=== PATIENT | male | born 1955 | race Caucasian/White ===

== ENCOUNTER → 2017-09-06 | Outpatient (CLI) | payer BC ==
--- NOTE | 2017-09-06 17:02 | CT ---
EXAMINATION TYPE: CT angio chest DATE OF EXAM: 09/06/2017 4:56 PM COMPARISON: 03/27/2012 HISTORY: Shortness of breath, history of PE. CT DLP: 1306.00 mGycm Automated exposure control for dose reduction was used. CONTRAST: CTA scan of the thorax is performed with IV Contrast, patient injected with 100 mL of Omnipaque 350, pulmonary embolism protocol. There are 3-D post processed images.. FINDINGS: The lungs are clear of consolidation. There is no sign of a pulmonary mass. There is no pleural effus ion. There is no pericardial effusion. Thoracic aorta appears normal. There is no sign of aneurysm or dissection. There is normal contrast o pacification of the pulmonary arteries. I see no filling defects. There are a few small mediastinal lymph nodes measure up to 5 mm. There is spurring in the thoracic s pine. I see no bony destructive process. IMPRESSION: NO EVIDENCE OF PULMONARY EMBOLISM. SPONDYLOTIC CHANGES IN THE THORACIC SPINE. NO ADVERSE CHANGE THEODORE RED TO OLD EXAM.
== END ==
LOC: RADCTMAIN 16:31
PROVIDERS: ATTEND Family Medicine
DX: R06.02 Shortness of breath (principal)
CPT/HCPCS: 71275; Q9967

== ENCOUNTER 2018-08-23 10:54 | Day surgery (SDC) | payer MEDICARE, BC ==
[2018-08-21 09:09] VITALS: BMI 54.2
[~2018-08-23 10:54] MED LIST: LACTATED RINGERS 1,000 ML IV SCH; LIDOCAINE 1% 20 ML VIAL (10MG/ML) FOR IV START INTRADERMA PRN
[2018-08-23 11:14] VITALS: TEMP 98
[2018-08-23] MEDS ORDERED: PROPOFOL 10 MG/ML 20 ML VIAL IV ONE (12:02)
[2018-08-23] MEDS ORDERED: LIDOCAINE 1% INJ 10MG/ML (20 ML MDV) ONE (12:02)
--- NOTE | 2018-08-23 12:14 | P.GSHP ---
History of Present Illness H&P Date: 08/23/18 Chief Complaint: Colon cancer history Patient here today for colonoscopy. Last colonoscopy 7-8 years ago. Polyps were found at that time he states. No bowel complaints. Past Medical History Past Medical History: Asthma, GERD/Reflux, Hypertension, Pneumonia, Pulmonary Embolus (PE) Additional Past Medical History / Comment(s): diverticulosis, asthma as a child History of Any Multi-Drug Resistant Organisms: None Reported Past Surgical History: Appendectomy, Orthopedic Surgery Additional Past Surgical History / Comment(s): rt rotator cuff, rt knee repair of torn meniscus Past Anesthesia/Blood Transfusion Reactions: No Reported Reaction Smoking Status: Never smoker - Past Family History Father Family Medical History: Cancer Additional Family Medical History / Comment(s): bladder cancer with metastasis, diverticulosis Mother Family Medical History: Asthma Brother(s) Additional Family Medical History / Comment(s): scleroderma Medications and Allergies Home Medications Medication Instructions Recorded Confirmed Type Albuterol Nebulized [Ventolin 2.5 mg INHALATION Q4H PRN 08/21/18 08/21/18 History Nebulized] Albuterol Sulfate [Proair Hfa] 1 - 2 puff INHALATION Q6HR PRN 08/21/18 08/21/18 History Atenolol [Tenormin] 25 mg PO DAILY 08/21/18 08/23/18 History Hydrochlorothiazide 12.5 mg PO DAILY 08/21/18 08/23/18 History Warfarin [Coumadin] 5 mg PO DAILY 08/21/18 08/21/18 History Allergies Allergy/AdvReac Type Severity Reaction Status Date / Time cat dander Allergy Anaphylaxis Verified 08/23/18 11:13 Surgical - Exam Vital Signs Temp Pulse Resp BP Pulse Ox 98.0 F 57 L 16 157/84 94 L 08/23/18 11:13 08/23/18 11:13 08/23/18 11:13 08/23/18 11:13 08/23/18 11:13 Physical exam: General: Well-developed, well-nourished HEENT: Normocephalic, sclerae nonicteric Abdomen: Nontender, nondistended Extremities: No edema Neuro: Alert and oriented Assessment and Plan (1) Colon cancer screening Narrative/Plan: Will proceed with colonoscopy at this time. Current Visit: Yes Status: Acute Code(s): Z12.11 - ENCOUNTER FOR SCREENING FOR MALIGNANT NEOPLASM OF COLON SNOMED Code(s): 623818703
--- NOTE | 2018-08-23 12:27 | P.PCN ---
Date of Procedure: 08/23/18 Procedure(s) Performed: PREOPERATIVE DIAGNOSIS: Colon cancer screening, history of polyps POSTOPERATIVE DIAGNOSIS: Diverticulosis PROCEDURE: Colonoscopy ANESTHESIA: MAC SURGEON: Nadeem Lombardi M.D. SPECIMENS: None ENDOSCOPIC PROCEDURE: The patient was placed on the endoscopy table in the left decubitus position. The Olympus colonoscope was inserted into the anus and passed under direct visualization to the base of the cecum. The appendiceal orifice was visualized. From that point the scope was slowly withdrawn inspecting all surfaces carefully. There were no neoplastic inflammatory or polypoid lesions throughout the cecum, ascending, transverse, descending, sigmoid and rectum. There was moderate diverticulosis noted throughout the colon. Digital rectal examination was normal. The patient was taken to the recovery room in stable condition per anesthesia guidelines. RECOMMENDATIONS: Increase fiber. Follow-up colonoscopy 5-10 years based on previous follow-up biopsies.
[2018-08-23 12:42] VITALS: RESP 18
[2018-08-23 12:47] VITALS: BP 127/77; PULSE 50
== END 2018-08-23 13:07 | disposition home or self-care (01) ==
LOC: ORWHC2ENDO 10:54
PROVIDERS: ATTEND Surgery
DX: Z12.11 Encounter for screening for malignant neoplasm of colon (principal); K57.90 Diverticulosis of intestine, part unspecified, without perforation or abscess without bleeding; Z85.038 Personal history of other malignant neoplasm of large intestine; Z86.010 Personal history of colon polyps; K21.9 Gastro-esophageal reflux disease without esophagitis; I10 Essential (primary) hypertension; J45.909 Unspecified asthma, uncomplicated; Z86.711 Personal history of pulmonary embolism; Z80.52 Family history of malignant neoplasm of bladder; Z79.01 Long term (current) use of anticoagulants; Z79.899 Other long term (current) drug therapy; Z91.09 Other allergy status, other than to drugs and biological substances
CPT/HCPCS: J2001; J2704; G0105

== ENCOUNTER 2019-06-06 21:23 | Inpatient (IN) | payer MEDICARE, BC ==
[2019-06-06] MEDS ORDERED: SODIUM CHLORIDE 0.9% 1,000 ML IV ONE (22:40)
[2019-06-06] MEDS ORDERED: PIPERACILLIN-TAZOBACTAM 3.375 GM in SODIUM CHLORIDE 0.9% 100 ML IVPB STA (23:08)
[2019-06-06] MEDS ORDERED: VANCOMYCIN IV PER PHARMACY 1 EACH MISC MISCELLANE PRN (23:08)
[2019-06-06] MEDS ORDERED: IBUPROFEN 600 MG TAB PO STA (23:08)
[2019-06-06] MEDS ORDERED: ACETAMINOPHEN TAB 500 MG TAB PO STA (23:08)
[2019-06-06 23:25] LABS: Basophils % (A) 0 %; Eosinophils # (A) 0.1 k/uL (0-0.7); Eosinophils % (A) 1 %; HCT 41.3 % (39.0-53.0); HGB 13.4 gm/dL (13.0-17.5); Lymphocytes # (A) 0.8 k/uL (1.0-4.8); Lymphocytes % (A) 5 %; MCH 28.9 pg (25.0-35.0); MCHC 32.4 g/dL (31.0-37.0); MCV 88.9 fL (80.0-100.0); Monocytes # (A) 0.6 k/uL (0-1.0); Monocytes % (A) 4 %; Neutrophils # (A) 14.6 k/uL (1.3-7.7); Neutrophils % (A) 90 %; Platelet Count 189 k/uL (150-450); RBC 4.65 m/uL (4.30-5.90); RDW 15.6 % (11.5-15.5); WBC 16.2 k/uL (3.8-10.6)
[2019-06-06] MEDS ORDERED: VANCOMYCIN 2,000 MG in SODIUM CHLORIDE 0.9% 500 ML 500 ML IVPB ONE (23:30)
[2019-06-06] MEDS: SODIUM CHLORIDE 0.9% 1,000 ML IV SCH (23:33)
[2019-06-06 23:35] LABS: Appearance,Urine Clear (Clear); Bilirubin,Urine Negative (Negative); Blood,Urine Negative (Negative); Color,Urine Yellow; Glucose,Urine (UA) Negative (Negative); Ketones,Urine Trace (Negative); Leukocyte Esterase,Urine Negative (Negative); Mucus,Urine Occasional /hpf; Nitrite,Urine Negative (Negative); Protein,Urine 1+ (Negative); RBC,Urine 4 /hpf (0-5); Specific Gravity,Urine 1.023 (1.001-1.035); Squamous Epithelial Cell,Urine 1 /hpf (0-4); WBC,Urine 2 /hpf (0-5)
[2019-06-06 23:49] LABS: ALT 30 U/L (21-72); AST 30 U/L (17-59); African American GFR (CKD) >90 (>60 ml/min/1.73 sqM); Albumin 3.5 g/dL (3.5-5.0); Alkaline Phosphatase 72 U/L (38-126); Anion Gap 11 mmol/L; Blood Urea Nitrogen 19 mg/dL (9-20); Calcium 8.5 mg/dL (8.4-10.2); Carbon Dioxide 24 mmol/L (22-30); Chloride 99 mmol/L (98-107); Glucose 108 mg/dL (74-99); Non-African American GFR(CKD) 80 (>60 ml/min/1.73 sqM); Potassium 3.8 mmol/L (3.5-5.1); Sodium 134 mmol/L (137-145); Total Bilirubin 2.1 mg/dL (0.2-1.3); Total Protein 6.6 g/dL (6.3-8.2)
[2019-06-06 23:54] LABS: INR 1.2 (<1.2)
[2019-06-07 00:03] LABS: Partial Thromboplastin Time 21.5 sec (22.0-30.0)
[2019-06-07 00:19] LABS: C Reactive Protein 156.5 mg/L (<10.0)
--- NOTE | 2019-06-07 01:29 | CT ---
EXAM: CT Abdomen and Pelvis With Intravenous Contrast CLINICAL HISTORY: Abdominal cellulitis TECHNIQUE: Axial computed tomography images of the abdomen and pelvis with intravenous contrast. CTDI is 0.358, 0.358, 41.3, 31.6 mGy and DLP is 4589.2 mGy-cm. This CT exam was performed using one or more of the following dose reduction techniques: automated exposure control, adjustment of the mA and/or kV according to patient size, and/or use of iterative reconstruction technique. COMPARISON: No relevant prior studies available. FINDINGS: Lung bases: Unremarkable. No mass. No consolidation. ABDOMEN: Liver: Hepatic steatosis. Gallbladder and bile ducts: Unremarkable. Pancreas: Unremarkable. Spleen: Unremarkable. Adrenals: Unremarkable. Kidneys and ureters: Cysts within both kidneys. Stomach and bowel: Noninflamed colonic diverticulosis. PELVIS: Appendix: Appendix is not visualized. Bladder: Unremarkable. Reproductive: Unremarkable as visualized. ABDOMEN and PELVIS: Intraperitoneal space: Unremarkable. Bones/joints: No acute osseous abnormality. No dislocation. Soft tissues: Marked soft tissue thickening and edema seen within the lower anterior abdomen/pelvis suggesting a nonspecific cellulitis. No soft tissue gas or abscess. Vasculature: Vascular calcifications. No abdominal aortic aneurysm. Lymph nodes: Unremarkable. Other findings: Lower thorax is unremarkable. IMPRESSION: Marked soft tissue thickening and edema seen within the lower anterior abdomen/pelvis suggesting a nonspecific cellulitis. No soft tissue gas or abscess.
--- NOTE | 2019-06-07 01:49 | ED ---
General Adult HPI - General Source: patient, RN notes reviewed, old records reviewed Mode of arrival: ambulatory Limitations: physical limitation <Jesenia Simons - Last Filed: 06/07/19 01:46> <Kanwal Marino - Last Filed: 06/20/19 14:47> - General Chief complaint: Nausea/Vomiting/Diarrhea Stated complaint: Fever Time Seen by Provider: 06/06/19 22:39 - History of Present Illness Initial comments: Patient is a 63-year-old male who presents emergency department today for evaluation for abdominal wall cellulitis. He complains of fevers, chills, symptoms of dizziness starting today. He states that he started to notice some area of redness over his lower abdomen and has quickly spread to his mid abdomen where shorts overlie. Patient states that he has had a similar infection such as this in the past and he was admitted and had infectious disease Dr. Jean with his case. Patient states that he's had no change in urination or bowel habits. He reports he's had a fever and chills. He denies any nausea or vomiting. (Jesenia Simons) - Related Data Home Medications Medication Instructions Recorded Confirmed Albuterol Nebulized [Ventolin 2.5 mg INHALATION RT-Q4H PRN 08/21/18 06/07/19 Nebulized] Albuterol Sulfate [Proair Hfa] 1 - 2 puff INHALATION RT-Q6H PRN 08/21/18 06/07/19 Atenolol [Tenormin] 25 mg PO DAILY 08/21/18 06/07/19 Hydrochlorothiazide 12.5 mg PO DAILY 08/21/18 06/07/19 Multivitamin [Multivitamins Adult 1 tab PO DAILY 06/07/19 06/07/19 Gummies] Rivaroxaban [Xarelto] 10 mg PO DAILY 06/07/19 06/07/19 Previous Rx's Medication Instructions Recorded Amoxicillin/Potassium Clav 1 tab PO Q12HR #14 tab 06/11/19 [Augmentin 875-125 Tablet] SILVER sulfADIAZINE Cream 1 applic TOPICAL TID #400 gm 06/11/19 [Silvadene 1% Cream] Allergies Allergy/AdvReac Type Severity Reaction Status Date / Time cat dander Allergy Anaphylaxis Verified 06/07/19 08:45 Review of Systems ROS Other: All systems not noted in ROS Statement are negative. <Jesenia Simons - Last Filed: 06/07/19 01:46> ROS Other: All systems not noted in ROS Statement are negative. <Kanwal Marino Av - Last Filed: 06/20/19 14:47> ROS Statement: Those systems with pertinent positive or pertinent negative responses have been documented in the HPI. Past Medical History Past Medical History: Asthma, GERD/Reflux, Hypertension, Pneumonia, Pulmonary Embolus (PE) Additional Past Medical History / Comment(s): diverticulosis, asthma as a child, History of Any Multi-Drug Resistant Organisms: None Reported Past Surgical History: Appendectomy, Orthopedic Surgery Additional Past Surgical History / Comment(s): rt rotator cuff, rt knee repair of torn meniscus, bilat knee replacement, Past Anesthesia/Blood Transfusion Reactions: No Reported Reaction Past Psychological History: No Psychological Hx Reported Smoking Status: Never smoker Past Alcohol Use History: Rare Past Drug Use History: None Reported - Past Family History Father Family Medical History: Cancer Additional Family Medical History / Comment(s): bladder cancer with metastasis, diverticulosis Mother Family Medical History: Asthma Brother(s) Additional Family Medical History / Comment(s): scleroderma <Jesenia Simons - Last Filed: 06/07/19 01:46> General Exam Limitations: physical limitation Head exam: Present: atraumatic, normocephalic, normal inspection Eye exam: Present: normal appearance, PERRL, EOMI. Absent: scleral icterus, conjunctival injection, periorbital swelling ENT exam: Present: normal exam, mucous membranes moist Neck exam: Present: normal inspection. Absent: tenderness, meningismus, ly mphadenopathy Respiratory exam: Present: normal lung sounds bilaterally. Absent: respiratory distress, wheezes, rales, rhonchi, stridor Cardiovascular Exam: Present: regular rate, normal rhythm, normal heart sounds. Absent: systolic murmur, diastolic murmur, rubs, gallop, clicks GI/Abdominal exam: Present: soft, normal bowel sounds, other (Treatment room pannus with overlying cellulitis over the lower abdomen and suprapubic area.). Absent: distended, tenderness, guarding, rebound, rigid Extremities exam: Present: normal inspection, full ROM, normal capillary refill. Absent: tenderness, pedal edema, joint swelling, calf tenderness Back exam: Present: normal inspection Neurological exam: Present: alert, oriented X3, CN II-XII intact Psychiatric exam: Present: normal affect, normal mood Skin exam: Present: warm, dry, intact, normal color. Absent: rash <Jesenia Simons - Last Filed: 06/07/19 01:46> - General Exam Comments Initial Comments: is a pleasant 63-year-old male. Morbidly obese. (Jesenia Simons) Course Vital Signs 06/06/19 06/07/19 21:40 06:18 Temperature 100.9 F H 98.8 F Pulse Rate 82 82 Respiratory 19 18 Rate Blood Pressure 116/67 139/76 O2 Sat by Pulse 93 L 97 Oximetry Medical Decision Making - Lab Data Result diagrams: 06/06/19 22:48 06/06/19 22:48 - Radiology Data Radiology results: report reviewed <KristynJesenia - Last Filed: 06/07/19 01:46> - Lab Data Result diagrams: 06/11/19 11:05 06/11/19 11:05 <Kanwal Marino - Last Filed: 06/20/19 14:47> - Medical Decision Making Patient's a 63-year-old male presents or urgency department today with lower abdominal wall cellulitis. Patient has had fevers and chills body aches. At this time. Extensive cellulitis over his lower panus and suprapubic area. Patient started on IV antibiotics of Zosyn and vancomycin. Patient labwork shows evidence of leukocytosis, elevated CRP. Lactic acid was within normal limits. Patient will be admitted at this time with consult to infectious disease. (Jesenia Simons) I personally Evaluated the patient. I agree with assessment of cellulitis with no lab or CT findings concerning for acute necrotizing fasciitis. I agree with plan for admission for IV antibiotics and consult to infectious disease Dr. Jean. (Kanwal Marino) - Lab Data Lab Results 06/06/19 06/06/19 06/06/19 Range/Units 22:48 22:48 22:48 WBC 16.2 H (3.8-10.6) k/uL RBC 4.65 (4.30-5.90) m/uL Hgb 13.4 (13.0-17.5) gm/dL Hct 41.3 (39.0-53.0) % MCV 88.9 (80.0-100.0) fL MCH 28.9 (25.0-35.0) pg MCHC 32.4 (31.0-37.0) g/dL RDW 15.6 H (11.5-15.5) % Plt Count 189 (150-450) k/uL Neutrophils % 90 % Lymphocytes % 5 % Monocytes % 4 % Eosinophils % 1 % Basophils % 0 % Neutrophils # 14.6 H (1.3-7.7) k/uL Lymphocytes # 0.8 L (1.0-4.8) k/uL Monocytes # 0.6 (0-1.0) k/uL Eosinophils # 0.1 (0-0.7) k/uL Basophils # 0.0 (0-0.2) k/uL PT (9.0-12.0) sec INR (<1.2) APTT (22.0-30.0) sec Sodium 134 L (137-145) mmol/L Potassium 3.8 (3.5-5.1) mmol/L Chloride 99 (98-107) mmol/L Carbon Dioxide 24 (22-30) mmol/L Anion Gap 11 mmol/L BUN 19 (9-20) mg/dL Creatinine 0.99 (0.66-1.25) mg/dL Est GFR (CKD-EPI)AfAm >90 (>60 ml/min/1.73 sqM) Est GFR (CKD-EPI)NonAf 80 (>60 ml/min/1.73 sqM) Glucose 108 H (74-99) mg/dL Plasma Lactic Acid [place] (0.7-2.0) mmol/L Calcium 8.5 (8.4-10.2) mg/dL Magnesium (1.6-2.3) mg/dL Total Bilirubin 2.1 H (0.2-1.3) mg/dL AST 30 (17-59) U/L ALT 30 (21-72) U/L Alkaline Phosphatase 72 (38-126) U/L C-Reactive Protein 156.5 H (<10.0) mg/L Total Protein 6.6 (6.3-8.2) g/dL Albumin 3.5 (3.5-5.0) g/dL Urine Color Yellow Urine Appearance Clear (Clear) Urine pH 7.0 (5.0-8.0) Ur Specific [place] 1.023 (1.001-1.035) Urine Protein 1+ H (Negative) Urine Glucose (UA) Negative (Negative) Urine Ketones Trace H (Negative) Urine Blood Negative (Negative) Urine Nitrite Negative (Negative) Urine Bilirubin Negative (Negative) Urine Urobilinogen 3.0 (<2.0) mg/dL Ur Leukocyte Esterase Negative (Negative) Urine RBC 4 (0-5) /hpf Urine WBC 2 (0-5) /hpf Ur Squamous Epith Cells 1 (0-4) /hpf Urine Mucus Occasional H (None) /hpf 06/06/19 06/06/19 06/08/19 Range/Units 22:48 22:48 08:23 WBC 8.8 (3.8-10.6) k/uL RBC 4.63 (4.30-5.90) m/uL Hgb 13.2 (13.0-17.5) gm/dL Hct 42.1 (39.0-53.0) % MCV 91.0 (80.0-100.0) fL MCH 28.5 (25.0-35.0) pg MCHC 31.3 (31.0-37.0) g/dL RDW 15.3 (11.5-15.5) % Plt Count 178 (150-450) k/uL Neutrophils % 79 % Lymphocytes % 11 % Monocytes % 5 % Eosinophils % 3 % Basophils % 0 % Neutrophils # 6.9 (1.3-7.7) k/uL Lymphocytes # 1.0 (1.0-4.8) k/uL Monocytes # 0.4 (0-1.0) k/uL Eosinophils # 0.2 (0-0.7) k/uL Basophils # 0.0 (0-0.2) k/uL PT 12.0 (9.0-12.0) sec INR 1.2 H (<1.2) APTT 21.5 L (22.0-30.0) sec Sodium (137-145) mmol/L Potassium (3.5-5.1) mmol/L Chloride (98-107) mmol/L Carbon Dioxide (22-30) mmol/L Anion Gap mmol/L BUN (9-20) mg/dL Creatinine (0.66-1.25) mg/dL Est GFR (CKD-EPI)AfAm (>60 ml/min/1.73 sqM) Est GFR (CKD-EPI)NonAf (>60 ml/min/1.73 sqM) Glucose (74-99) mg/dL Plasma Lactic Acid [place] 1.4 (0.7-2.0) mmol/L Calcium (8.4-10.2) mg/dL Magnesium (1.6-2.3) mg/dL Total Bilirubin (0.2-1.3) mg/dL AST (17-59) U/L ALT (21-72) U/L Alkaline Phosphatase (38-126) U/L C-Reactive Protein (<10.0) mg/L Total Protein (6.3-8.2) g/dL Albumin (3.5-5.0) g/dL Urine Color Urine Appearance (Clear) Urine pH (5.0-8.0) Ur Specific [place] (1.001-1.035) Urine Protein (Negative) Urine Glucose (UA) (Negative) Urine Ketones (Negative) Urine Blood (Negative) Urine Nitrite (Negative) Urine Bilirubin (Negative) Urine Urobilinogen (<2.0) mg/dL Ur Leukocyte Esterase (Negative) Urine RBC (0-5) /hpf Urine WBC (0-5) /hpf Ur Squamous Epith Cells (0-4) /hpf Urine Mucus (None) /hpf 06/08/19 06/09/19 06/09/19 Range/Units 08:23 08:05 08:05 WBC 7.5 (3.8-10.6) k/uL RBC 4.68 (4.30-5.90) m/uL Hgb 13.6 (13.0-17.5) gm/dL Hct 42.6 (39.0-53.0) % MCV 91.1 (80.0-100.0) fL MCH 29.0 (25.0-35.0) pg MCHC 31.8 (31.0-37.0) g/dL RDW 15.5 (11.5-15.5) % Plt Count 195 (150-450) k/uL Neutrophils % 70 % Lymphocytes % 15 % Monocytes % 6 % Eosinophils % 5 % Basophils % 1 % Neutrophils # 5.2 (1.3-7.7) k/uL Lymphocytes # 1.1 (1.0-4.8) k/uL Monocytes # 0.5 (0-1.0) k/uL Eosinophils # 0.4 (0-0.7) k/uL Basophils # 0.1 (0-0.2) k/uL PT (9.0-12.0) sec INR (<1.2) APTT (22.0-30.0) sec Sodium 137 140 (137-145) mmol/L Potassium 3.7 3.9 (3.5-5.1) mmol/L Chloride 103 104 (98-107) mmol/L Carbon Dioxide 26 30 (22-30) mmol/L Anion Gap 8 6 mmol/L BUN 15 16 (9-20) mg/dL Creatinine 0.97 0.99 (0.66-1.25) mg/dL Est GFR (CKD-EPI)AfAm >90 >90 (>60 ml/min/1.73 sqM) Est GFR (CKD-EPI)NonAf 82 80 (>60 ml/min/1.73 sqM) Glucose 138 H 127 H (74-99) mg/dL Plasma Lactic Acid [place] (0.7-2.0) mmol/L Calcium 8.4 8.5 (8.4-10.2) mg/dL Magnesium 2.1 (1.6-2.3) mg/dL Total Bilirubin (0.2-1.3) mg/dL AST (17-59) U/L ALT (21-72) U/L Alkaline Phosphatase (38-126) U/L C-Reactive Protein (<10.0) mg/L Total Protein (6.3-8.2) g/dL Albumin (3.5-5.0) g/dL Urine Color Urine Appearance (Clear) Urine pH (5.0-8.0) Ur Specific [place] (1.001-1.035) Urine Protein (Negative) Urine Glucose (UA) (Negative) Urine Ketones (Negative) Urine Blood (Negative) Urine Nitrite (Negative) Urine Bilirubin (Negative) Urine Urobilinogen (<2.0) mg/dL Ur Leukocyte Esterase (Negative) Urine RBC (0-5) /hpf Urine WBC (0-5) /hpf Ur Squamous Epith Cells (0-4) /hpf Urine Mucus (None) /hpf - Radiology Data CT shows marked soft tissue thickening and edema in the lower anterior abdomen suggesting nonspecific sialitis. No soft tissue gas or abscess. (Jesenia Simons) Disposition Is patient prescribed a controlled substance at d/c from ED?: No Time of Disposition: 01:49 <Jesenia Simons - Last Filed: 06/07/19 01:46> <Kanwal Marion - Last Filed: 06/20/19 14:47> Clinical Impression: Sepsis, Abdominal wall cellulitis Disposition: ADMITTED IP TO THIS HOSP Condition: Stable
[2019-06-07] MEDS ORDERED: IBUPROFEN 400 MG TAB PO PRN (01:50)
[2019-06-07] MEDS ORDERED: ACETAMINOPHEN TAB 325 MG TAB PO PRN (01:50)
[2019-06-07] MEDS ORDERED: HYDROmorphone 0.5 MG/0.5 ML SYRINGE IVP PRN (01:50)
[2019-06-07] MEDS ORDERED: NALOXONE 0.4 MG/ML 1 ML VIAL IV PRN (01:50)
[2019-06-07] MEDS ORDERED: ONDANSETRON 4 MG/2 ML VIAL IVP PRN (01:50)
[2019-06-07] MEDS ORDERED: ALBUTEROL NEBULIZED 2.5 MG/3 ML INHALATION PRN (04:58)
[2019-06-07] MEDS: HYDROCHLOROTHIAZIDE 12.5 MG CAP PO SCH (08:57)
[2019-06-07] MEDS: ATENOLOL 25 MG TAB PO SCH (08:57)
[2019-06-07] MEDS: SODIUM CHLORIDE 0.9% 1,000 ML IV SCH ×2 (08:58→19:31)
[2019-06-07] MEDS: PIPERACILLIN-TAZOBACTAM 3.375 GM in SODIUM CHLORIDE 0.9% 100 ML IVPB SCH ×2 (08:58→16:03)
[2019-06-07] MEDS: MORPHINE SULFATE 4 MG/ML SYRINGE IV PRN ×2 (10:44→17:29)
[2019-06-07 10:56] VITALS: BMI 54.5
--- NOTE | 2019-06-07 11:24 | P.HPIM ---
History of Present Illness H&P Date: 06/07/19 Chief Complaint: Abdominal pain Pete is a 63-year-old white male well-known to me. He has morbid obesity is chronically anticoagulated for recurrent pulmonary embolism. He reports nausea vomiting and feeling flulike illness 2 days ago. He reports that he had a cut on his abdomen. A Band-Aid was in place. Fridays symptoms became worse and he had significant erythema to his abdomen along with fever. He came emergency room and was diagnosed with cellulitis the abdomen. He is currently on Zosyn and vancomycin. He feels quite a bit better. He is on IV fluids for hydration and 100 mL an hour. His morphine when necessary for pain. He denies any chest pains pressures or shortness breath this time. Denies a more nausea or vomiting. Review of Systems All systems: negative Past Medical History Past Medical History: Asthma, GERD/Reflux, Hypertension, Pneumonia, Pulmonary Embolus (PE) Additional Past Medical History / Comment(s): diverticulosis, asthma as a child, cellulitis History of Any Multi-Drug Resistant Organisms: None Reported Past Surgical History: Appendectomy, Orthopedic Surgery Additional Past Surgical History / Comment(s): rt rotator cuff, rt knee repair of torn meniscus, bilat knee replacement 2019 Past Anesthesia/Blood Transfusion Reactions: No Reported Reaction Past Psychological History: No Psychological Hx Reported Smoking Status: Never smoker Past Alcohol Use History: Occasional Additional Past Alcohol Use History / Comment(s): Patient reports drinking alcohol once a month Past Drug Use History: None Reported - Past Family History Father Family Medical History: Cancer Additional Family Medical History / Comment(s): bladder cancer with metastasis, diverticulosis Mother Family Medical History: Asthma Brother(s) Additional Family Medical History / Comment(s): scleroderma Medications and Allergies Home Medications Medication Instructions Recorded Confirmed Type Albuterol Nebulized [Ventolin 2.5 mg INHALATION RT-Q4H PRN 08/21/18 06/07/19 History Nebulized] Albuterol Sulfate [Proair Hfa] 1 - 2 puff INHALATION RT-Q6H PRN 08/21/18 06/07/19 History Atenolol [Tenormin] 25 mg PO DAILY 08/21/18 06/07/19 History Hydrochlorothiazide 12.5 mg PO DAILY 08/21/18 06/07/19 History Multivitamin [Multivitamins Adult 1 tab PO DAILY 06/07/19 06/07/19 History Gummies] Rivaroxaban [Xarelto] 10 mg PO DAILY 06/07/19 06/07/19 History Allergies Allergy/AdvReac Type Severity Reaction Status Date / Time cat dander Allergy Anaphylaxis Verified 06/07/19 08:45 Physical Exam Vitals: Vital Signs Temp Pulse Pulse Resp BP BP Pulse Ox 06/07/19 07:25 97.7 F 56 L 16 156/80 96 06/07/19 06:18 98.8 F 82 18 139/76 97 06/06/19 21:40 100.9 F H 82 19 116/67 93 L Intake and Output 06/06/19 06/07/19 06/07/19 22:59 06:59 14:59 Other: Weight 182.344 kg GENERAL: Well-appearing, well-nourished and in no acute distress, morbidly obese white male. HEAD: Atraumatic, normocephalic. EYES: Pupils equal round and reactive to light, extraocular movements intact, sclera anicteric, conjunctiva are normal. ENT:nares patent, oropharynx clear without exudates. Moist mucous membranes. NECK: Normal range of motion, supple without lymphadenopathy or JVD, no thyromegaly LUNGS: Breath sounds clear to auscultation bilaterally and equal. No wheezes rales or rhonchi. HEART: Regular rate and rhythm without murmurs, rubs or gallops.S1S2 Normal ABDOMEN: Soft, normoactive bowel sounds. No guarding, no rebound. No masses appreciated. Large demarcated area of erythema, somewhat faded now, to the abdomen. There is a skin ulcer to the right abdomen measuring approximately 0.9 x 1 cm diameter. EXTREMITIES: Normal range of motion, no pitting or edema. No clubbing or cyanosis. NEUROLOGICAL: Cranial nerves II through XII grossly intact. Normal speech, n ormal gait. PSYCH: Normal mood, normal affect. SKIN: Warm, Dry, normal turgor, no rashes or lesions noted. Results CBC & Chem 7: 06/06/19 22:48 06/06/19 22:48 Labs: Abnormal Lab Results - Last 24 Hours (Table) 06/06/19 06/06/19 06/06/19 Range/Units 22:48 22:48 22:48 WBC 16.2 H (3.8-10.6) k/uL RDW 15.6 H (11.5-15.5) % Neutrophils # 14.6 H (1.3-7.7) k/uL Lymphocytes # 0.8 L (1.0-4.8) k/uL INR (<1.2) APTT (22.0-30.0) sec Sodium 134 L (137-145) mmol/L Glucose 108 H (74-99) mg/dL Total Bilirubin 2.1 H (0.2-1.3) mg/dL C-Reactive Protein 156.5 H (<10.0) mg/L Urine Protein 1+ H (Negative) Urine Ketones Trace H (Negative) Urine Mucus Occasional H (None) /hpf 06/06/19 Range/Units 22:48 WBC (3.8-10.6) k/uL RDW (11.5-15.5) % Neutrophils # (1.3-7.7) k/uL Lymphocytes # (1.0-4.8) k/uL INR 1.2 H (<1.2) APTT 21.5 L (22.0-30.0) sec Sodium (137-145) mmol/L Glucose (74-99) mg/dL Total Bilirubin (0.2-1.3) mg/dL C-Reactive Protein (<10.0) mg/L Urine Protein (Negative) Urine Ketones (Negative) Urine Mucus (None) /hpf CT scan - pelvis: report reviewed Thrombosis Risk Factor Assmnt - DVT/VTE Prophylaxis DVT/VTE Prophylaxis: Pharmacologic Prophylaxis ordered (He'll remain on his anticoagulant) - Choose All That Apply Any of the Below Risk Factors Present?: Yes Each Factor Represents 1 point: Obesity (BMI >25), Swollen legs (current) Each Risk Factor Represents 2 Points: Age 61-74 years Thrombosis Risk Factor Assessment Total Risk Factor Score: 4 Thrombosis Risk Factor Assessment Level: Moderate Risk Assessment and Plan (1) Abdominal wall cellulitis Current Visit: Yes Status: Acute Code(s): L03.311 - CELLULITIS OF ABDOMINAL WALL SNOMED Code(s): 50714396 (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 Current Visit: Yes Status: Acute Code(s): Z79.01 - 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 Continue on his current medications. Add Silvadene cream to his abdomen. Repeat labs in a.m. He'll be reevaluated next 24 hours.
[2019-06-07] MEDS: VANCOMYCIN 2,000 MG in SODIUM CHLORIDE 0.9% 500 ML 500 ML IVPB SCH (13:49)
[2019-06-07] MEDS ORDERED: WARFARIN 5 MG TAB PO SCH (18:00)
--- NOTE | 2019-06-07 22:49 | P.CONS ---
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 He then noticed that he had developed a severe amount of redness to his abdominal wall associated with significant discomfort. As a discomfort set in he relates that he had an another bout of infection to his abdominal wall presented to the emergency center and was admitted. He does relate that he does work for the local [employer] for shifts per month and his gun holster irritated his abdominal wall pannus and is now had a bit of a ulceration which has been more irritated. At this time since coming to Hospital receiving fluids and antibiotic therapy is or started to feel somewhat better. His fever is improving he's had no further chills and his pain has been well managed. He does not relate to any other acute changes. Review of Systems Fever chill and rigor before coming to Hospital HEENT:Denies headache or acute visual change. Denies sinus or mouth discomforts. Denies neck stiffness or pain. Denies significant oral cavity pain. Denies difficulty on swallowing. Lungs: Denies significant shortness of breath, cough, sputum production, or he moptysis. Cardiovascular: Denies significant shortness of breath, chest pain, chest wall pain, orthopnea, dyspnea on exertion, syncope Gastrointestinal:Denies nausea, vomiting, diarrhea, constipation, hematemesis, melena, hematochezia. No no significant change of bowel habit noticed. Musculoskeletal: denies significant myalgias or arthralgias. No new joint swelling. Denies new back pain. Skin: Has developed as per the HPI swelling erythema and tenderness to the abdominal wall and ulceration Neuro: Denies headache or visual change. Denies any new onset weakness or difficulty with ambulation. Denies falls or seizures. Psychiatric:Denies anxiety or depression. Endocrine: Denies significant fatigue, denies significant weight loss or weight gain. Past Medical History Past Medical History: Asthma, GERD/Reflux, Hypertension, Pneumonia, Pulmonary Embolus (PE) Additional Past Medical History / Comment(s): diverticulosis, asthma as a child, cellulitis of abdominal wall History of Any Multi-Drug Resistant Organisms: None Reported Past Surgical History: Appendectomy, Orthopedic Surgery Additional Past Surgical History / Comment(s): rt rotator cuff, rt knee repair of torn meniscus, bilat knee replacement 2019 Past Anesthesia/Blood Transfusion Reactions: No Reported Reaction Past Psychological History: No Psychological Hx Reported Additional Psychological History / Comment(s): and lives with his . 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 No international travel. Does travel to [place]. No animal exposures. No smoking in tobacco or alcohol use Smoking Status: Never smoker Past Alcohol Use History: Occasional Additional Past Alcohol Use History / Comment(s): Patient reports drinking alcohol once a month Past Drug Use History: None Reported - Past Family History Father Family Medical History: Cancer Additional Family Medical History / Comment(s): bladder cancer with metastasis, diverticulosis Mother Family Medical History: Asthma Brother(s) Additional Family Medical History / Comment(s): scleroderma Medications and Allergies Home Medications and Allergies Comment(s): Current Medications Acetaminophen (Tylenol Tab) 650 mg PO Q6HR PRN PRN Reason: Mild Pain or Fever > 100.5 Albuterol Sulfate (Ventolin Nebulized) 2.5 mg INHALATION Q4H PRN PRN Reason: Dyspnea Atenolol (Tenormin) 25 mg PO DAILY [facility] Last Admin: 06/07/19 08:57 Dose: 25 mg Documented by: Hydrochlorothiazide (Hydrodiuril) 12.5 mg PO DAILY [facility] Last Admin: 06/07/19 08:57 Dose: 12.5 mg Documented by: Hydromorphone HCl (Dilaudid) 0.5 mg IVP Q3HR PRN PRN Reason: Moderate Pain Last Admin: 06/07/19 07:01 Dose: 0.5 mg Documented by: Sodium Chloride (Saline 0.9%) 1,000 mls @ 100 mls/hr IV .Q10H [facility] Last Admin: 06/07/19 19:31 Dose: Not Given Documented by: Piperacillin Sod/Tazobactam (Sod 3.375 gm/ Sodium Chloride) 100 mls @ 25 mls/hr IVPB Q8HR [facility] Last Admin: 06/07/19 16:03 Dose: 25 mls/hr Documented by: Vancomycin HCl 2,000 mg/ (Sodium Chloride) 500 mls @ 167 mls/hr IVPB Q12H [facility] Last Admin: 06/07/19 13:49 Dose: 167 mls/hr Documented by: Ibuprofen (Motrin) 400 mg PO Q6HR PRN PRN Reason: Mild Pain or Fever > 100.5 Morphine Sulfate (Morphine Sulfate (Inj)) 4 mg IV Q4HR PRN PRN Reason: Severe Pain Last Admin: 06/07/19 17:29 Dose: 4 mg Documented by: Naloxone HCl (Narcan) 0.2 mg IV Q2M PRN PRN Reason: Opioid Reversal Ondansetron HCl (Zofran) 4 mg IVP Q8HR PRN PRN Reason: Nausea And Vomiting Silver Sulfadiazine (Silvadene Cream) 1 applic TOPICAL TID ELIAS Last Admin: 06/07/19 20:12 Dose: 1 applic Documented by: Home Medications Medication Instructions Recorded Confirmed Type Albuterol Nebulized [Ventolin 2.5 mg INHALATION RT-Q4H PRN 08/21/18 06/07/19 History Nebulized] Albuterol Sulfate [Proair Hfa] 1 - 2 puff INHALATION RT-Q6H PRN 08/21/18 06/07/19 History Atenolol [Tenormin] 25 mg PO DAILY 08/21/18 06/07/19 History Hydrochlorothiazide 12.5 mg PO DAILY 08/21/18 06/07/19 History Multivitamin [Multivitamins Adult 1 tab PO DAILY 06/07/19 06/07/19 History Gummies] Rivaroxaban [Xarelto] 10 mg PO DAILY 06/07/19 06/07/19 History Allergies Allergy/AdvReac Type Severity Reaction Status Date / Time cat dander Allergy Anaphylaxis Verified 06/07/19 08:45 Physical Exam Vitals: Vital Signs Temp Pulse Pulse Resp BP BP Pulse Ox 06/07/19 21:30 99.7 F H 68 20 152/54 94 L 06/07/19 13:22 97.2 F L 58 L 16 183/81 98 06/07/19 07:25 97.7 F 56 L 16 156/80 96 06/07/19 06:18 98.8 F 82 18 139/76 97 Intake and Output 06/07/19 06/07/19 06/07/19 06:59 14:59 22:59 Intake Total 200 Balance 200 Intake: Oral 200 Other: # Voids 3 1 HEENT: Anicteric conjunctiva are pink and moist nasal mucosa grossly intact without significant lesions, there is no thrush. Neck: The neck is supple without significant lymphadenopathy or thyromegaly. Lungs: Good bilateral air entry without significant crackles or wheezing. There is no significant bronchial sounds. There is no egophony or dullness. Heart: Regular rate and rhythm with an audible S1-S2, no S3 no S4. There is no significant murmur click or rub, PMI was nondisplaced. Abdomen:obese, Positive bowel sounds soft , there is abdominal wall tenderness that is present from about the level of the umbilicus down through the abdominal pannus with there is dense erythema induration and tenderness. There is the small ulceration on the right lower quadrant approximately 2 x 2 by 0.1 cm that has only scant drainage. There is no expressible purulence. There is no necrotic tissue. Extremities: The upper extremities have excellent pulses they are symmetric, no significant petechiae or telangiectasia. No splinter hemorrhages were noted. The lower extremities are free from significant edema. The peripheral pulses were 2+ and symmetric.The bilateral total knee arthroplasty scars are well- healed Neuro: Awake alert oriented to person place and time. There are no acute new gross focal sensory motor deficits. Results CBC & Chem 7: 06/06/19 22:48 06/06/19 22:48 Labs: Abnormal Lab Results - Last 24 Hours (Table) 06/06/19 06/06/19 06/06/19 Range/Units 22:48 22:48 22:48 WBC 16.2 H (3.8-10.6) k/uL RDW 15.6 H (11.5-15.5) % Neutrophils # 14.6 H (1.3-7.7) k/uL Lymphocytes # 0.8 L (1.0-4.8) k/uL INR (<1.2) APTT (22.0-30.0) sec Sodium 134 L (137-145) mmol/L Glucose 108 H (74-99) mg/dL Total Bilirubin 2.1 H (0.2-1.3) mg/dL C-Reactive Protein 156.5 H (<10.0) mg/L Urine Protein 1+ H (Negative) Urine Ketones Trace H (Negative) Urine Mucus Occasional H (None) /hpf 06/06/19 Range/Units 22:48 WBC (3.8-10.6) k/uL RDW (11.5-15.5) % Neutrophils # (1.3-7.7) k/uL Lymphocytes # (1.0-4.8) k/uL INR 1.2 H (<1.2) APTT 21.5 L (22.0-30.0) sec Sodium (137-145) mmol/L Glucose (74-99) mg/dL Total Bilirubin (0.2-1.3) mg/dL C-Reactive Protein (<10.0) mg/L Urine Protein (Negative) Urine Ketones (Negative) Urine Mucus (None) /hpf Laboratory Results WBC 16.2 k/uL (3.8-10.6) H 06/06/19 22:48 RBC 4.65 m/uL (4.30-5.90) 06/06/19 22:48 Hgb 13.4 gm/dL (13.0-17.5) 06/06/19 22:48 Hct 41.3 % (39.0-53.0) 06/06/19 22:48 MCV 88.9 fL (80.0-100.0) 06/06/19 22:48 MCH 28.9 pg (25.0-35.0) 06/06/19 22:48 MCHC 32.4 g/dL (31.0-37.0) 06/06/19 22:48 RDW 15.6 % (11.5-15.5) H 06/06/19 22:48 Plt Count 189 k/uL (150-450) 06/06/19 22:48 Neutrophils % 90 % 06/06/19 22:48 Lymphocytes % 5 % 06/06/19 22:48 Monocytes % 4 % 06/06/19 22:48 Eosinophils % 1 % 06/06/19 22:48 Basophils % 0 % 06/06/19 22:48 Neutrophils # 14.6 k/uL (1.3-7.7) H 06/06/19 22:48 Lymphocytes # 0.8 k/uL (1.0-4.8) L 06/06/19 22:48 Monocytes # 0.6 k/uL (0-1.0) 06/06/19 22:48 Eosinophils # 0.1 k/uL (0-0.7) 06/06/19 22:48 Basophils # 0.0 k/uL (0-0.2) 06/06/19 22:48 PT 12.0 sec (9.0-12.0) 06/06/19 22:48 INR 1.2 (<1.2) H 06/06/19 22:48 APTT 21.5 sec (22.0-30.0) L 06/06/19 22:48 Sodium 134 mmol/L (137-145) L 06/06/19 22:48 Potassium 3.8 mmol/L (3.5-5.1) 06/06/19 22:48 Chloride 99 mmol/L (98-107) 06/06/19 22:48 Carbon Dioxide 24 mmol/L (22-30) 06/06/19 22:48 Anion Gap 11 mmol/L 06/06/19 22:48 BUN 19 mg/dL (9-20) 06/06/19 22:48 Creatinine 0.99 mg/dL (0.66-1.25) 06/06/19 22:48 Est GFR (CKD-EPI)AfAm >90 (>60 ml/min/1.73 sqM) 06/06/19 22:48 Est GFR (CKD-EPI)NonAf 80 (>60 ml/min/1.73 sqM) 06/06/19 22:48 Glucose 108 mg/dL (74-99) H 06/06/19 22:48 Plasma Lactic Acid [place] 1.4 mmol/L (0.7-2.0) 06/06/19 22:48 Calcium 8.5 mg/dL (8.4-10.2) 06/06/19 22:48 Total Bilirubin 2.1 mg/dL (0.2-1.3) H 06/06/19 22:48 AST 30 U/L (17-59) 06/06/19 22:48 ALT 30 U/L (21-72) 06/06/19 22:48 Alkaline Phosphatase 72 U/L (38-126) 06/06/19 22:48 C-Reactive Protein 156.5 mg/L (<10.0) H 06/06/19 22:48 Total Protein 6.6 g/dL (6.3-8.2) 06/06/19 22:48 Albumin 3.5 g/dL (3.5-5.0) 06/06/19 22:48 Urine Color Yellow 06/06/19 22:48 Urine Appearance Clear (Clear) 06/06/19 22:48 Urine pH 7.0 (5.0-8.0) 06/06/19 22:48 Ur Specific [place] 1.023 (1.001-1.035) 06/06/19 22:48 Urine Protein 1+ (Negative) H 06/06/19 22:48 Urine Glucose (UA) Negative (Negative) 06/06/19 22:48 Urine Ketones Trace (Negative) H 06/06/19 22:48 Urine Blood Negative (Negative) 06/06/19 22:48 Urine Nitrite Negative (Negative) 06/06/19 22:48 Urine Bilirubin Negative (Negative) 06/06/19 22:48 Urine Urobilinogen 3.0 mg/dL (<2.0) 06/06/19 22:48 Ur Leukocyte Esterase Negative (Negative) 06/06/19 22:48 Urine RBC 4 /hpf (0-5) 06/06/19 22:48 Urine WBC 2 /hpf (0-5) 06/06/19 22:48 Ur Squamous Epith Cells 1 /hpf (0-4) 06/06/19 22:48 Urine Mucus Occasional /hpf (None) H 06/06/19 22:48 Assessment and Plan (1) Abdominal wall cellulitis Narrative/Plan: Pleasant 63-year-old male presents to hospital with a sudden onset of fever chills and flulike illness. The patient noticed that he had developed some pain to his abdominal wall and then noticed the increasing amount of erythema at the pain and swelling. He doesn't presented to the emergency center and is fol lowed evidence of the extensive cellulitis of the abdominal wall. The abrasion injury to the abdominal wall is a likely portal of entry. The ulceration is treated with therahoney. There is abdominal wall is treated with Silvadene which he tolerated well and the past.Antibiotic therapy is currently with Zosyn and vancomycin until further culture results are available. Fortunately is already showing some clinical improvement. Interdry has been utilized under the pannus to absorb any drainage. Current Visit: Yes Status: Acute Code(s): L03.311 - CELLULITIS OF ABDOMINAL WALL SNOMED Code(s): 78292507 (2) Morbid (severe) obesity due to excess calories Current Visit: Yes Status: Acute Code(s): E66.01 - MORBID (SEVERE) OBESITY DUE TO EXCESS CALORIES SNOMED Code(s): 855348936 (3) Sepsis Current Visit: Yes Status: Acute Code(s): A41.9 - SEPSIS, UNSPECIFIED ORGANISM SNOMED Code(s): 16167062
[2019-06-08] MEDS: VANCOMYCIN 2,000 MG in SODIUM CHLORIDE 0.9% 500 ML 500 ML IVPB SCH ×2 (00:22→13:51)
[2019-06-08] MEDS: PIPERACILLIN-TAZOBACTAM 3.375 GM in SODIUM CHLORIDE 0.9% 100 ML IVPB SCH ×3 (00:22→17:15)
[2019-06-08] MEDS: SODIUM CHLORIDE 0.9% 1,000 ML IV SCH ×2 (04:52→13:51)
[2019-06-08] MEDS: HYDROCHLOROTHIAZIDE 12.5 MG CAP PO SCH (08:28)
[2019-06-08] MEDS: ATENOLOL 25 MG TAB PO SCH (08:28)
[2019-06-08 09:08] LABS: Basophils % (A) 0 %; Eosinophils # (A) 0.2 k/uL (0-0.7); Eosinophils % (A) 3 %; HCT 42.1 % (39.0-53.0); HGB 13.2 gm/dL (13.0-17.5); Lymphocytes % (A) 11 %; MCH 28.5 pg (25.0-35.0); MCHC 31.3 g/dL (31.0-37.0); Mean Platelet Volume 6.9; Monocytes # (A) 0.4 k/uL (0-1.0); Monocytes % (A) 5 %; Neutrophils # (A) 6.9 k/uL (1.3-7.7); Neutrophils % (A) 79 %; Platelet Count 178 k/uL (150-450); RBC 4.63 m/uL (4.30-5.90); RDW 15.3 % (11.5-15.5); WBC 8.8 k/uL (3.8-10.6)
[2019-06-08 09:12] LABS: African American GFR (CKD) >90 (>60 ml/min/1.73 sqM); Anion Gap 8 mmol/L; Blood Urea Nitrogen 15 mg/dL (9-20); Calcium 8.4 mg/dL (8.4-10.2); Carbon Dioxide 26 mmol/L (22-30); Chloride 103 mmol/L (98-107); Glucose 138 mg/dL (74-99); Non-African American GFR(CKD) 82 (>60 ml/min/1.73 sqM); Potassium 3.7 mmol/L (3.5-5.1); Sodium 137 mmol/L (137-145)
[2019-06-08] MEDS: SILVER sulfADIAZINE Cream 400 GM 1 APPLIC APPLIC TOPICAL SCH ×3 (10:28→20:54)
--- NOTE | 2019-06-08 12:02 | P.PN ---
Elijah Loyd is a 63-year-old white male well-known to me. He has morbid obesity is chronically anticoagulated for recurrent pulmonary embolism. He reports nausea vomiting and feeling flulike illness 2 days ago. He reports that he had a cut on his abdomen. A Band-Aid was in place. Fridays symptoms became worse and he had significant erythema to his abdomen along with fever. He came emergency room and was diagnosed with cellulitis the abdomen. He is currently on Zosyn and vancomycin. He feels quite a bit better. He is on IV fluids for hydration and 100 mL an hour. His morphine when necessary for pain. He denies any chest pains pressures or shortness breath this time. Denies a more nausea or vomiting. 06/08/2019: Patient remains on IV antibiotics of Zosyn and vancomycin. He feels quite a bit better. He remains on anticoagulation with Xarelto. He denies any chest pains, pressures, shortness of breath. He is using Silvadene cream to his cellulitis area. He has had a dry order to his pannus fold. MAXIMUM TEMPERATURE is 99.7F. Objective - Vital Signs Vital signs: Vital Signs Temp 98.9 F 06/08/19 04:35 Pulse 63 06/08/19 04:35 Resp 20 06/08/19 04:35 BP 131/69 06/08/19 04:35 Pulse Ox 96 06/08/19 04:35 Intake & Output 06/07/19 06/08/19 06/08/19 18:59 06:59 18:59 Intake Total 400 Balance 400 Intake: Oral 400 Other: # Voids 3 1 1 - Exam GENERAL: Well-appearing, well-nourished and in no acute distress, morbidly obese white male. HEAD: Atraumatic, normocephalic. EYES: Pupils equal round and reactive to light, extraocular movements intact, sclera anicteric, conjunctiva are normal. ENT:nares patent, oropharynx clear without exudates. Moist mucous membranes. NECK: Normal range of motion, supple without lymphadenopathy or JVD, no thyromegaly LUNGS: Breath sounds clear to auscultation bilaterally and equal. No wheezes rales or rhonchi. HEART: Regular rate and rhythm without murmurs, rubs or gallops.S1S2 Normal ABDOMEN: Soft, normoactive bowel sounds. No guarding, no rebound. No masses appreciated. Large demarcated area of erythema, somewhat faded now, to the abdomen. There is a skin ulcer to the right abdomen measuring approximately 0.9 x 1 cm diameter. EXTREMITIES: Normal range of motion, no pitting or edema. No clubbing or cyanosis. NEUROLOGICAL: Cranial nerves II through XII grossly intact. Normal speech, normal gait. PSYCH: Normal mood, normal affect. SKIN: Warm, Dry, normal turgor, no rashes or lesions noted. 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 Weight on recommendations for oral antibiotics once addition is improved. Continue on his current medications. Repeat labs in a.m. He'll be reevaluated next 24 hours.
[2019-06-08] MEDS: RIVAROXABAN 10 MG TAB PO SCH (12:39)
[2019-06-08] MEDS: MORPHINE SULFATE 4 MG/ML SYRINGE IV PRN (12:50)
--- NOTE | 2019-06-08 23:08 | P.PN ---
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 He then noticed that he had developed a severe amount of redness to his abdominal wall associated with significant discomfort. As a discomfort set in h e relates that he had an another bout of infection to his abdominal wall presented to the emergency center and was admitted. He does relate that he does work for the local [employer] for shifts per month and his gun holster irritated his abdominal wall pannus and is now had a bit of a ulceration which has been more irritated. At this time since coming to Hospital receiving fluids and antibiotic therapy is or started to feel somewhat better. His fever is improving he's had no further chills and his pain has been well managed. He does not relate to any other acute changes.\ 06/08/2019 patient is feeling slowly better today. The pain and discomfort and abdominal wall have improved. He is not having fevers or chills. He has tolerated antibiotic therapy well without nausea or emesis. Objective - Vital Signs Vital signs: Vital Signs Temp 99.2 F 06/08/19 21:34 Pulse 59 L 06/08/19 21:34 Resp 20 06/08/19 21:34 BP 134/61 06/08/19 21:34 Pulse Ox 96 06/08/19 21:34 Intake & Output 06/08/19 06/08/19 06/09/19 06:59 18:59 06:59 Intake Total 400 400 Balance 400 400 Intake: Oral 400 400 Other: # Voids 1 2 - Exam HEENT: Anicteric conjunctiva are pink and moist nasal mucosa grossly intact without significant lesions, there is no thrush. Neck: The neck is supple without significant lymphadenopathy or thyromegaly. Lungs: Good bilateral air entry without significant crackles or wheezing. There is no significant bronchial sounds. There is no egophony or dullness. Heart: Regular rate and rhythm with an audible S1-S2, no S3 no S4. There is no significant murmur click or rub, PMI was nondisplaced. Abdomen:obese, Positive bowel sounds soft , there is abdominal wall tenderness that is present from about the level of the umbilicus down through the abdominal pannus with there is improvement of the erythema induration and tenderness. There is the small ulceration on the right lower quadrant approximately 2 x 2 by 0.1 cm that has only scant drainage. There is no expressible purulence. There is no necrotic tissue. Extremities: The upper extremities have excellent pulses they are symmetric, no significant petechiae or telangiectasia. No splinter hemorrhages were noted. The lower extremities are free from significant edema. The peripheral pulses were 2+ and symmetric.The bilateral total knee arthroplasty scars are well-hea led Neuro: Awake alert oriented to person place and time. There are no acute new gross focal sensory motor deficits. - Labs CBC & Chem 7: 06/08/19 08:23 06/08/19 08:23 Labs: Abnormal Lab Results - Last 24 Hours (Table) 06/08/19 Range/Units 08:23 Glucose 138 H (74-99) mg/dL Microbiology - Last 24 Hours (Table) 06/06/19 22:48 Blood Culture - Preliminary Blood No Growth after 24 hours Laboratory Results WBC 8.8 k/uL (3.8-10.6) 06/08/19 08:23 RBC 4.63 m/uL (4.30-5.90) 06/08/19 08:23 Hgb 13.2 gm/dL (13.0-17.5) 06/08/19 08:23 Hct 42.1 % (39.0-53.0) 06/08/19 08:23 MCV 91.0 fL (80.0-100.0) 06/08/19 08:23 MCH 28.5 pg (25.0-35.0) 06/08/19 08:23 MCHC 31.3 g/dL (31.0-37.0) 06/08/19 08:23 RDW 15.3 % (11.5-15.5) 06/08/19 08:23 Plt Count 178 k/uL (150-450) 06/08/19 08:23 Neutrophils % 79 % 06/08/19 08:23 Lymphocytes % 11 % 06/08/19 08:23 Monocytes % 5 % 06/08/19 08:23 Eosinophils % 3 % 06/08/19 08:23 Basophils % 0 % 06/08/19 08:23 Neutrophils # 6.9 k/uL (1.3-7.7) 06/08/19 08:23 Lymphocytes # 1.0 k/uL (1.0-4.8) 06/08/19 08:23 Monocytes # 0.4 k/uL (0-1.0) 06/08/19 08:23 Eosinophils # 0.2 k/uL (0-0.7) 06/08/19 08:23 Basophils # 0.0 k/uL (0-0.2) 06/08/19 08:23 PT 12.0 sec (9.0-12.0) 06/06/19 22:48 INR 1.2 (<1.2) H 06/06/19 22:48 APTT 21.5 sec (22.0-30.0) L 06/06/19 22:48 Sodium 137 mmol/L (137-145) 06/08/19 08:23 Potassium 3.7 mmol/L (3.5-5.1) 06/08/19 08:23 Chloride 103 mmol/L (98-107) 06/08/19 08:23 Carbon Dioxide 26 mmol/L (22-30) 06/08/19 08:23 Anion Gap 8 mmol/L 06/08/19 08:23 BUN 15 mg/dL (9-20) 06/08/19 08:23 Creatinine 0.97 mg/dL (0.66-1.25) 06/08/19 08:23 Est GFR (CKD-EPI)AfAm >90 (>60 ml/min/1.73 sqM) 06/08/19 08:23 Est GFR (CKD-EPI)NonAf 82 (>60 ml/min/1.73 sqM) 06/08/19 08:23 Glucose 138 mg/dL (74-99) H 06/08/19 08:23 Plasma Lactic Acid [place] 1.4 mmol/L (0.7-2.0) 06/06/19 22:48 Calcium 8.4 mg/dL (8.4-10.2) 06/08/19 08:23 Total Bilirubin 2.1 mg/dL (0.2-1.3) H 06/06/19 22:48 AST 30 U/L (17-59) 06/06/19 22:48 ALT 30 U/L (21-72) 06/06/19 22:48 Alkaline Phosphatase 72 U/L (38-126) 06/06/19 22:48 C-Reactive Protein 156.5 mg/L (<10.0) H 06/06/19 22:48 Total Protein 6.6 g/dL (6.3-8.2) 06/06/19 22:48 Albumin 3.5 g/dL (3.5-5.0) 06/06/19 22:48 Urine Color Yellow 06/06/19 22:48 Urine Appearance Clear (Clear) 06/06/19 22:48 Urine pH 7.0 (5.0-8.0) 06/06/19 22:48 Ur Specific [place] 1.023 (1.001-1.035) 06/06/19 22:48 Urine Protein 1+ (Negative) H 06/06/19 22:48 Urine Glucose (UA) Negative (Negative) 06/06/19 22:48 Urine Ketones Trace (Negative) H 06/06/19 22:48 Urine Blood Negative (Negative) 06/06/19 22:48 Urine Nitrite Negative (Negative) 06/06/19 22:48 Urine Bilirubin Negative (Negative) 06/06/19 22:48 Urine Urobilinogen 3.0 mg/dL (<2.0) 06/06/19 22:48 Ur Leukocyte Esterase Negative (Negative) 06/06/19 22:48 Urine RBC 4 /hpf (0-5) 06/06/19 22:48 Urine WBC 2 /hpf (0-5) 06/06/19 22:48 Ur Squamous Epith Cells 1 /hpf (0-4) 06/06/19 22:48 Urine Mucus Occasional /hpf (None) H 06/06/19 22:48 Microbiology 06/06/19 22:48 Blood Blood Culture - Preliminary No Growth after 24 hours Assessment and Plan (1) Abdominal wall cellulitis Narrative/Plan: Pleasant 63-year-old male presents to hospital with a sudden onset of fever chills and flulike illness. The patient noticed that he had developed some pain to his abdominal wall and then noticed the increasing amount of erythema at the pain and swelling. He doesn't presented to the emergency center and is followed evidence of the extensive cellulitis of the abdominal wall. The abrasion injury to the abdominal wall is a likely portal of entry. The ulceration is treated with therahoney. There is abdominal wall is treated with Silvadene which he tolerated well and the past.Antibiotic therapy is currently with Zosyn and vancomycin until further culture results are available. Fortunately is already showing some clinical improvement. Interdry has been utilized under the pannus to absorb any drainage. 06/08/2019 the patient is feeling better in that his pain and discomfort have improved. Has not had complete resolution of his symptoms though. We'll continue with current antibiotic therapy which is intravenous with local wound care. He is tolerating the therahoney in the Silvadene well. We'll reevaluate and hopefully will have further improvement in the next 24-48 hours. Current Visit: Yes Status: Acute Code(s): L03.311 - CELLULITIS OF ABDOMINAL WALL SNOMED Code(s): 17885317 (2) Morbid (severe) obesity due to excess calories Current Visit: Yes Status: Acute Code(s): E66.01 - MORBID (SEVERE) OBESITY DUE TO EXCESS CALORIES SNOMED Code(s): 201604590 (3) Sepsis Current Visit: Yes Status: Acute Code(s): A41.9 - SEPSIS, UNSPECIFIED ORGANISM SNOMED Code(s): 24536077
[2019-06-09] MEDS: VANCOMYCIN 2,000 MG in SODIUM CHLORIDE 0.9% 500 ML 500 ML IVPB SCH ×2 (00:05→12:58)
[2019-06-09] MEDS: PIPERACILLIN-TAZOBACTAM 3.375 GM in SODIUM CHLORIDE 0.9% 100 ML IVPB SCH ×4 (00:06→23:13)
[2019-06-09] MEDS: SODIUM CHLORIDE 0.9% 1,000 ML IV SCH ×3 (00:06→21:34)
[2019-06-09] MEDS: HYDROCHLOROTHIAZIDE 12.5 MG CAP PO SCH (07:53)
[2019-06-09] MEDS: RIVAROXABAN 10 MG TAB PO SCH (07:53)
[2019-06-09] MEDS: ATENOLOL 25 MG TAB PO SCH (07:53)
[2019-06-09] MEDS: SILVER sulfADIAZINE Cream 400 GM 1 APPLIC APPLIC TOPICAL SCH ×3 (07:54→21:34)
[2019-06-09 08:20] LABS: Basophils # (A) 0.1 k/uL (0-0.2); Basophils % (A) 1 %; Eosinophils # (A) 0.4 k/uL (0-0.7); Eosinophils % (A) 5 %; HCT 42.6 % (39.0-53.0); HGB 13.6 gm/dL (13.0-17.5); Lymphocytes # (A) 1.1 k/uL (1.0-4.8); Lymphocytes % (A) 15 %; MCHC 31.8 g/dL (31.0-37.0); MCV 91.1 fL (80.0-100.0); Monocytes # (A) 0.5 k/uL (0-1.0); Monocytes % (A) 6 %; Neutrophils # (A) 5.2 k/uL (1.3-7.7); Neutrophils % (A) 70 %; Platelet Count 195 k/uL (150-450); RBC 4.68 m/uL (4.30-5.90); RDW 15.5 % (11.5-15.5); WBC 7.5 k/uL (3.8-10.6)
[2019-06-09 08:36] LABS: African American GFR (CKD) >90 (>60 ml/min/1.73 sqM); Anion Gap 6 mmol/L; Blood Urea Nitrogen 16 mg/dL (9-20); Calcium 8.5 mg/dL (8.4-10.2); Carbon Dioxide 30 mmol/L (22-30); Chloride 104 mmol/L (98-107); Glucose 127 mg/dL (74-99); Magnesium 2.1 mg/dL (1.6-2.3); Non-African American GFR(CKD) 80 (>60 ml/min/1.73 sqM); Potassium 3.9 mmol/L (3.5-5.1); Sodium 140 mmol/L (137-145)
[2019-06-09] MEDS ORDERED: VANCOMYCIN TROUGH DUE 1 EACH MISC MISCELLANE ONE (12:00)
--- NOTE | 2019-06-09 23:26 | P.PN ---
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 He then noticed that he had developed a severe amount of redness to his abdominal wall associated with significant discomfort. As a discomfort set in h e relates that he had an another bout of infection to his abdominal wall presented to the emergency center and was admitted. He does relate that he does work for the local [employer] for shifts per month and his gun holster irritated his abdominal wall pannus and is now had a bit of a ulceration which has been more irritated. At this time since coming to Hospital receiving fluids and antibiotic therapy is or started to feel somewhat better. His fever is improving he's had no further chills and his pain has been well managed. He does not relate to any other acute changes.\ 06/08/2019 patient is feeling slowly better today. The pain and discomfort and abdominal wall have improved. He is not having fevers or chills. He has tolerated antibiotic therapy well without nausea or emesis. 06/09/2019 the patient is feeling a little bit better again today. Less pain and discomfort. Is not completely resolve the abdominal pain swelling and erythema. Elevated white blood count has improved. He is not having fever. Objective - Vital Signs Vital signs: Vital Signs Temp 98.6 F 06/09/19 20:50 Pulse 56 L 06/09/19 20:50 Resp 16 06/09/19 20:50 BP 117/73 06/09/19 20:50 Pulse Ox 96 06/09/19 20:50 Intake & Output 06/09/19 06/09/19 06/10/19 06:59 18:59 06:59 Intake Total 300 540 Balance 300 540 Intake: Oral 300 540 Other: # Voids 2 3 1 - Exam HEENT: Anicteric conjunctiva are pink and moist nasal mucosa grossly intact without significant lesions, there is no thrush. Neck: The neck is supple without significant lymphadenopathy or thyromegaly. Lungs: Good bilateral air entry without significant crackles or wheezing. There is no significant bronchial sounds. There is no egophony or dullness. Heart: Regular rate and rhythm with an audible S1-S2, no S3 no S4. There is no significant murmur click or rub, PMI was nondisplaced. Abdomen:obese, Positive bowel sounds soft , there is abdominal wall tenderness that is present from about the level of the umbilicus down through the abdominal pannus with there is improvement of the erythema induration and tenderness. There is the small ulceration on the right lower quadrant approximately 2 x 2 by 0.1 cm that has only scant drainage. There is no expressible purulence. There is no necrotic tissue. Extremities: The upper extremities have excellent pulses they are symmetric, no significant petechiae or telangiectasia. No splinter hemorrhages were noted. The lower extremities are free from significant edema. The peripheral pulses were 2+ and symmetric.The bilateral total knee arthroplasty scars are well- healed Neuro: Awake alert oriented to person place and time. There are no acute new gross focal sensory motor deficits. - Labs CBC & Chem 7: 06/09/19 08:05 06/09/19 08:05 Labs: Abnormal Lab Results - Last 24 Hours (Table) 06/09/19 Range/Units 08:05 Glucose 127 H (74-99) mg/dL Microbiology - Last 24 Hours (Table) 06/06/19 22:48 Blood Culture - Preliminary Blood No Growth after 48 hours Laboratory Results WBC 7.5 k/uL (3.8-10.6) 06/09/19 08:05 RBC 4.68 m/uL (4.30-5.90) 06/09/19 08:05 Hgb 13.6 gm/dL (13.0-17.5) 06/09/19 08:05 Hct 42.6 % (39.0-53.0) 06/09/19 08:05 MCV 91.1 fL (80.0-100.0) 06/09/19 08:05 MCH 29.0 pg (25.0-35.0) 06/09/19 08:05 MCHC 31.8 g/dL (31.0-37.0) 06/09/19 08:05 RDW 15.5 % (11.5-15.5) 06/09/19 08:05 Plt Count 195 k/uL (150-450) 06/09/19 08:05 Neutrophils % 70 % 06/09/19 08:05 Lymphocytes % 15 % 06/09/19 08:05 Monocytes % 6 % 06/09/19 08:05 Eosinophils % 5 % 06/09/19 08:05 Basophils % 1 % 06/09/19 08:05 Neutrophils # 5.2 k/uL (1.3-7.7) 06/09/19 08:05 Lymphocytes # 1.1 k/uL (1.0-4.8) 06/09/19 08:05 Monocytes # 0.5 k/uL (0-1.0) 06/09/19 08:05 Eosinophils # 0.4 k/uL (0-0.7) 06/09/19 08:05 Basophils # 0.1 k/uL (0-0.2) 06/09/19 08:05 PT 12.0 sec (9.0-12.0) 06/06/19 22:48 INR 1.2 (<1.2) H 06/06/19 22:48 APTT 21.5 sec (22.0-30.0) L 06/06/19 22:48 Sodium 140 mmol/L (137-145) 06/09/19 08:05 Potassium 3.9 mmol/L (3.5-5.1) 06/09/19 08:05 Chloride 104 mmol/L (98-107) 06/09/19 08:05 Carbon Dioxide 30 mmol/L (22-30) 06/09/19 08:05 Anion Gap 6 mmol/L 06/09/19 08:05 BUN 16 mg/dL (9-20) 06/09/19 08:05 Creatinine 0.99 mg/dL (0.66-1.25) 06/09/19 08:05 Est GFR (CKD-EPI)AfAm >90 (>60 ml/min/1.73 sqM) 06/09/19 08:05 Est GFR (CKD-EPI)NonAf 80 (>60 ml/min/1.73 sqM) 06/09/19 08:05 Glucose 127 mg/dL (74-99) H 06/09/19 08:05 Plasma Lactic Acid [place] 1.4 mmol/L (0.7-2.0) 06/06/19 22:48 Calcium 8.5 mg/dL (8.4-10.2) 06/09/19 08:05 Magnesium 2.1 mg/dL (1.6-2.3) 06/09/19 08:05 Total Bilirubin 2.1 mg/dL (0.2-1.3) H 06/06/19 22:48 AST 30 U/L (17-59) 06/06/19 22:48 ALT 30 U/L (21-72) 06/06/19 22:48 Alkaline Phosphatase 72 U/L (38-126) 06/06/19 22:48 C-Reactive Protein 156.5 mg/L (<10.0) H 06/06/19 22:48 Total Protein 6.6 g/dL (6.3-8.2) 06/06/19 22:48 Albumin 3.5 g/dL (3.5-5.0) 06/06/19 22:48 Urine Color Yellow 06/06/19 22:48 Urine Appearance Clear (Clear) 06/06/19 22:48 Urine pH 7.0 (5.0-8.0) 06/06/19 22:48 Ur Specific [place] 1.023 (1.001-1.035) 06/06/19 22:48 Urine Protein 1+ (Negative) H 06/06/19 22:48 Urine Glucose (UA) Negative (Negative) 06/06/19 22:48 Urine Ketones Trace (Negative) H 06/06/19 22:48 Urine Blood Negative (Negative) 06/06/19 22:48 Urine Nitrite Negative (Negative) 06/06/19 22:48 Urine Bilirubin Negative (Negative) 06/06/19 22:48 Urine Urobilinogen 3.0 mg/dL (<2.0) 06/06/19 22:48 Ur Leukocyte Esterase Negative (Negative) 06/06/19 22:48 Urine RBC 4 /hpf (0-5) 06/06/19 22:48 Urine WBC 2 /hpf (0-5) 06/06/19 22:48 Ur Squamous Epith Cells 1 /hpf (0-4) 06/06/19 22:48 Urine Mucus Occasional /hpf (None) H 06/06/19 22:48 Vancomycin Trough 17.3 ug/mL 06/09/19 12:09 Microbiology 06/06/19 22:48 Blood Blood Culture - Preliminary No Growth after 48 hours Assessment and Plan (1) Abdominal wall cellulitis Narrative/Plan: Pleasant 63-year-old male presents to hospital with a sudden onset of fever chills and flulike illness. The patient noticed that he had developed some pain to his abdominal wall and then noticed the increasing amount of erythema at the pain and swelling. He doesn't presented to the emergency center and is followed evidence of the extensive cellulitis of the abdominal wall. The abrasion injury to the abdominal wall is a likely portal of entry. The ulceration is treated with therahoney. There is abdominal wall is treated with Silvadene which he tolerated well and the past.Antibiotic therapy is currently with Zosyn and vancomycin until further culture results are available. Fortunately is already showing some clinical improvement. Interdry has been utilized under the pannus to absorb any drainage. 06/08/2019 the patient is feeling better in that his pain and discomfort have improved. Has not had complete resolution of his symptoms though. We'll cont inue with current antibiotic therapy which is intravenous with local wound care. He is tolerating the therahoney in the Silvadene well. We'll reevaluate and hopefully will have further improvement in the next 24-48 hours. 06/09/2019 patient is feeling somewhat better but certainly is with ongoing discomfort especially abdominal wall. The ulceration is responding well to the therahoney dressing and will continue. We'll continue Silvadene to the abdominal wall several times per day with the intravenous antibiotic therapy until there is marked further improvement. Should not require outpatient IV antibiotic therapy should be able to transition to oral soon. Current Visit: Yes Status: Acute Code(s): L03.311 - CELLULITIS OF ABDOMINAL WALL SNOMED Code(s): 96047555 (2) Morbid (severe) obesity due to excess calories Current Visit: Yes Status: Acute Code(s): E66.01 - MORBID (SEVERE) OBESITY DUE TO EXCESS CALORIES SNOMED Code(s): 048330471 (3) Sepsis Current Visit: Yes Status: Acute Code(s): A41.9 - SEPSIS, UNSPECIFIED ORGANISM SNOMED Code(s): 51105255
[2019-06-10] MEDS: VANCOMYCIN 2,000 MG in SODIUM CHLORIDE 0.9% 500 ML 500 ML IVPB SCH ×2 (01:01→12:18)
[2019-06-10] MEDS: SILVER sulfADIAZINE Cream 400 GM 1 APPLIC APPLIC TOPICAL SCH ×3 (07:13→21:08)
[2019-06-10] MEDS: ATENOLOL 25 MG TAB PO SCH (07:13)
[2019-06-10] MEDS: RIVAROXABAN 10 MG TAB PO SCH (07:13)
[2019-06-10] MEDS: HYDROCHLOROTHIAZIDE 12.5 MG CAP PO SCH (07:13)
[2019-06-10] MEDS: SODIUM CHLORIDE 0.9% 1,000 ML IV SCH ×2 (07:13→17:23)
[2019-06-10] MEDS: PIPERACILLIN-TAZOBACTAM 3.375 GM in SODIUM CHLORIDE 0.9% 100 ML IVPB SCH ×3 (07:13→23:56)
[2019-06-10 09:47] LABS: Calcium 8.9 mg/dL (8.4-10.2); Potassium 4.2 mmol/L (3.5-5.1)
[2019-06-10 09:49] LABS: Basophils # (A) 0.1 k/uL (0-0.2); Basophils % (A) 1 %; Eosinophils # (A) 0.4 k/uL (0-0.7); Eosinophils % (A) 5 %; HCT 44.1 % (39.0-53.0); HGB 13.7 gm/dL (13.0-17.5); Lymphocytes # (A) 1.3 k/uL (1.0-4.8); Lymphocytes % (A) 14 %; MCH 27.9 pg (25.0-35.0); MCHC 31.1 g/dL (31.0-37.0); MCV 89.8 fL (80.0-100.0); Mean Platelet Volume 7.4; Monocytes # (A) 0.5 k/uL (0-1.0); Monocytes % (A) 5 %; Neutrophils # (A) 6.5 k/uL (1.3-7.7); Neutrophils % (A) 73 %; Platelet Count 244 k/uL (150-450); RBC 4.91 m/uL (4.30-5.90); RDW 15.7 % (11.5-15.5); WBC 8.9 k/uL (3.8-10.6)
[2019-06-10] MEDS ORDERED: VANCOMYCIN TROUGH DUE 1 EACH MISC MISCELLANE ONE (12:00)
--- NOTE | 2019-06-10 16:00 | P.PN ---
Subjective Progress Note Date: 06/09/19 Evert is a 63-year-old white male well-known to me. He has morbid obesity is chronically anticoagulated for recurrent pulmonary embolism. He reports nausea vomiting and feeling flulike illness 2 days ago. He reports that he had a cut on his abdomen. A Band-Aid was in place. Fridays symptoms became worse and he had significant erythema to his abdomen along with fever. He came emergency room and was diagnosed with cellulitis the abdomen. He is currently on Zosyn and vancomycin. He feels quite a bit better. He is on IV fluids for hydration and 100 mL an hour. His morphine when necessary for pain. He denies any chest pains pressures or shortness breath this time. Denies a more nausea or vomiting. 06/08/2019: Patient remains on IV antibiotics of Zosyn and vancomycin. He feels quite a bit better. He remains on anticoagulation with Xarelto. He denies any chest pains, pressures, shortness of breath. He is using Silvadene cream to his cellulitis area. He has had a dry order to his pannus fold. MAXIMUM TEMPERATURE is 99.7F. 06/09/2019 improving on Zosyn, vancomycin with wound care of therahoney/silvadene. T-max 99, normal WBC, preliminary blood cultures negative. Ambulating in hallway, tolerating exertion well. Denies chest pain, palpitations or shortness of breath. Objective - Vital Signs Vital signs: Vital Signs Temp 97.9 F 06/09/19 04:30 Pulse 62 06/09/19 04:30 Resp 20 06/09/19 04:30 BP 150/80 06/09/19 04:30 Pulse Ox 96 06/09/19 04:30 Intake & Output 06/08/19 06/09/19 06/09/19 18:59 06:59 18:59 Intake Total 400 300 Balance 400 300 Intake: Oral 400 300 Other: # Voids 2 2 - Exam GENERAL: Well-appearing, alert and oriented 3 HEAD: Atraumatic, normocephalic. EYES: Pupils equal round and reactive to light, extraocular movements intact, sclera anicteric, conjunctiva are normal. ENT:nares patent, oropharynx clear without exudates. Moist mucous membranes. NECK: Normal range of motion, supple without lymphadenopathy or JVD, no thyromegaly LUNGS: Breath sounds clear to auscultation bilaterally and equal. No wheezes rales or rhonchi. HEART: Regular rate and rhythm without murmurs, rubs or gallops.S1S2 Normal ABDOMEN: Soft, normoactive bowel sounds. No guarding, no rebound. No masses appreciated. Large demarcated area of abdomen -improving erythema .dressing clean dry and intact over a skin ulcer to the right abdomen measuring approximately 0.9 x 1 cm diameter. EXTREMITIES: Normal range of motion, no pitting or edema. No clubbing or cyanosis. NEUROLOGICAL: Cranial nerves II through XII grossly intact. Normal speech, normal gait. PSYCH: Normal mood, normal affect. SKIN: Warm, Dry, normal turgor, no rashes or lesions noted, with the exception of cellulitis to his abdomen. 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 Current Visit: Yes Status: Acute Code(s): Z79.01 - PRESSURE CONTROLLER (CURRENT) USE OF ANTICOAGULANTS SNOMED Code(s): 206387242 (3) History of pulmonary embolus (PE) Current Visit: Yes Status: Acute Code(s): Z86.711 - PERSONAL HISTORY OF PULMONARY EMBOLISM SNOMED Code(s): 243390888 (4) Morbid (severe) obesity due to excess calories Current Visit: Yes Status: Acute Code(s): E66.01 - MORBID (SEVERE) OBESITY DUE TO EXCESS CALORIES SNOMED Code(s): 702678252 (5) Essential (primary) hypertension Current Visit: Yes Sta Plan: Continue on current medication regime ,monitoring and symptomatic treatment. Maintain IV antibiotics/Wound Care as per ID. Follow cultures closely. Increase ambulation as tolerated. Further recommendations to follow. The impression and plan of care has been dictated as directed. : I performed a history and examination of this patient, discussed the same with the dictator. I agree with the dictator's note ,documented as a scribe. Any additional findings or plans will be noted.
--- NOTE | 2019-06-10 16:06 | P.PN ---
Subjective Progress Note Date: 06/10/19 Evert is a 63-year-old white male well-known to me. He has morbid obesity is chronically anticoagulated for recurrent pulmonary embolism. He reports nausea vomiting and feeling flulike illness 2 days ago. He reports that he had a cut on his abdomen. A Band-Aid was in place. Fridays symptoms became worse and he had significant erythema to his abdomen along with fever. He came emergency room and was diagnosed with cellulitis the abdomen. He is currently on Zosyn and vancomycin. He feels quite a bit better. He is on IV fluids for hydration and 100 mL an hour. His morphine when necessary for pain. He denies any chest pains pressures or shortness breath this time. Denies a more nausea or vomiting. 06/08/2019: Patient remains on IV antibiotics of Zosyn and vancomycin. He feels quite a bit better. He remains on anticoagulation with Xarelto. He denies any chest pains, pressures, shortness of breath. He is using Silvadene cream to his cellulitis area. He has had a dry order to his pannus fold. MAXIMUM TEMPERATURE is 99.7F. 06/09/2019 improving on Zosyn, vancomycin with wound care of therahoney/silvadene. T-max 99, normal WBC, preliminary blood cultures negative. Ambulating in hallway, tolerating exertion well. Denies chest pain, palpitations or shortness of breath. 06/10/2019 continues to improve on IV antibiotics as per infectious disease. Afebrile, normal WBC. Denies chest pain, palpitations. Denies shortness of breath. Denies difficulty with gait, reports ambulating in hallway. Objective - Vital Signs Vital signs: Vital Signs Temp 98.1 F 06/10/19 13:18 Pulse 53 L 06/10/19 13:18 Resp 16 06/10/19 13:18 BP 129/66 06/10/19 13:18 Pulse Ox 95 06/10/19 13:18 Intake & Output 06/09/19 06/10/19 06/10/19 18:59 06:59 18:59 Intake Total 540 540 Balance 540 540 Intake: Oral 540 540 Other: # Voids 3 2 4 - Exam GENERAL: Well-appearing, alert and oriented 3 HEAD: Atraumatic, normocephalic. EYES: Pupils equal round and reactive to light, extraocular movements intact, sclera anicteric, conjunctiva are normal. ENT:nares patent, oropharynx clear without exudates. Moist mucous membranes. NECK: Normal range of motion, supple without lymphadenopathy or JVD, no thyromegaly LUNGS: Breath sounds clear to auscultation bilaterally and equal. No wheezes rales or rhonchi. HEART: Regular rate and rhythm without murmurs, rubs or gallops.S1S2 Normal ABDOMEN: Soft, normoactive bowel sounds. No guarding, no rebound. No masses appreciated. Large demarcated area of abdomen -improving erythema .dressing clean dry and intact over a skin ulcer to the right abdomen. EXTREMITIES: Normal range of motion, no pitting or edema. No clubbing or cyanosis. NEUROLOGICAL: Cranial nerves II through XII grossly intact. Normal speech, normal gait. PSYCH: Normal mood, normal affect. SKIN: Warm, Dry, normal turgor, no rashes or lesions noted, with the exception of cellulitis to his abdomen. - Labs CBC & Chem 7: 06/10/19 08:57 06/10/19 08:57 Labs: Abnormal Lab Results - Last 24 Hours (Table) 06/10/19 06/10/19 Range/Units 08:57 08:57 RDW 15.7 H (11.5-15.5) % Glucose 150 H (74-99) mg/dL Microbiology - Last 24 Hours (Table) 06/06/19 22:48 Blood Culture - Preliminary Blood No Growth after 72 hours Assessment and Plan Assessment: (1) Abdominal wall cellulitis Current Visit: Yes Status: Acute Code(s): L03.311 - CELLULITIS OF ABDOMINAL WALL SNOMED Code(s): 33508052 (2) assisted current use of anticoagulant therapy Current Visit: Yes Status: Acute Code(s): Z79.01 - ASSISTED (CURRENT) USE OF ANTICOAGULANTS SNOMED Code(s): 783622013 (3) History of pulmonary embolus (PE) Current Visit: Yes Status: Acute Code(s): Z86.711 - PERSONAL HISTORY OF PULMONARY EMBOLISM SNOMED Code(s): 958789058 (4) Morbid (severe) obesity due to excess calories Current Visit: Yes Status: Acute Code(s): E66.01 - MORBID (SEVERE) OBESITY DUE TO EXCESS CALORIES SNOMED Code(s): 965072754 (5) Essential (primary) hypertension Current Visit: Yes Sta Plan: Continue on current medication regime ,monitoring and symptomatic treatment. Continue with IV antibiotics/Wound Care as per ID, in a patient with recent knee surgery. monitorcultures closely. Increase ambulation as tolerated. Aggressive pulmonary toileting, Is ordered. The impression and plan of care has been dictated as directed. : I performed a history and examination of this patient, discussed the same with the dictator. I agree with the dictator's note ,documented as a scribe. Any additional findings or plans will be noted.
[2019-06-10 21:18] VITALS: RESP 18
--- NOTE | 2019-06-10 23:51 | P.PN ---
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 He then noticed that he had developed a severe amount of redness to his abdominal wall associated with significant discomfort. As a discomfort set in h e relates that he had an another bout of infection to his abdominal wall presented to the emergency center and was admitted. He does relate that he does work for the local [employer] for shifts per month and his gun holster irritated his abdominal wall pannus and is now had a bit of a ulceration which has been more irritated. At this time since coming to Hospital receiving fluids and antibiotic therapy is or started to feel somewhat better. His fever is improving he's had no further chills and his pain has been well managed. He does not relate to any other acute changes.\ 06/08/2019 patient is feeling slowly better today. The pain and discomfort and abdominal wall have improved. He is not having fevers or chills. He has tolerated antibiotic therapy well without nausea or emesis. 06/09/2019 the patient is feeling a little bit better again today. Less pain and discomfort. Is not completely resolve the abdominal pain swelling and erythema. Elevated white blood count has improved. He is not having fever. 06/10/2019 patient feeling better today, is encouraged that he will likely di scharge home tomorrow. Objective - Vital Signs Vital signs: Vital Signs Temp 98.8 F 06/10/19 22:07 Pulse 60 06/10/19 20:50 Resp 18 06/10/19 20:50 BP 134/70 06/10/19 20:50 Pulse Ox 94 L 06/10/19 20:50 Intake & Output 06/10/19 06/10/19 06/11/19 06:59 18:59 06:59 Intake Total 1080 Balance 1080 Intake: Oral 1080 Other: Voiding Method Toilet # Voids 2 3 1 - Exam HEENT: Anicteric conjunctiva are pink and moist nasal mucosa grossly intact without significant lesions, there is no thrush. Neck: The neck is supple without significant lymphadenopathy or thyromegaly. Lungs: Good bilateral air entry without significant crackles or wheezing. There is no significant bronchial sounds. There is no egophony or dullness. Heart: Regular rate and rhythm with an audible S1-S2, no S3 no S4. There is no significant murmur click or rub, PMI was nondisplaced. Abdomen:obese, Positive bowel sounds soft , there is abdominal wall tenderness that is present from about the level of the umbilicus down through the abdominal pannus with there is improvement of the erythema induration and tenderness. There is the small ulceration on the right lower quadrant approximately 2 x 2 by 0.1 cm that has only scant drainage. There is no expressible purulence. There is no necrotic tissue. Extremities: The upper extremities have excellent pulses they are symmetric, no significant petechiae or telangiectasia. No splinter hemorrhages were noted. The lower extremities are free from significant edema. The peripheral pulses were 2+ and symmetric.The bilateral total knee arthroplasty scars are well- healed Neuro: Awake alert oriented to person place and time. There are no acute new gross focal sensory motor deficits. - Labs CBC & Chem 7: 06/10/19 08:57 06/10/19 08:57 Labs: Abnormal Lab Results - Last 24 Hours (Table) 06/10/19 06/10/19 Range/Units 08:57 08:57 RDW 15.7 H (11.5-15.5) % Glucose 150 H (74-99) mg/dL Microbiology - Last 24 Hours (Table) 06/06/19 22:48 Blood Culture - Preliminary Blood No Growth after 72 hours Laboratory Results WBC 8.9 k/uL (3.8-10.6) 06/10/19 08:57 RBC 4.91 m/uL (4.30-5.90) 06/10/19 08:57 Hgb 13.7 gm/dL (13.0-17.5) 06/10/19 08:57 Hct 44.1 % (39.0-53.0) 06/10/19 08:57 MCV 89.8 fL (80.0-100.0) 06/10/19 08:57 MCH 27.9 pg (25.0-35.0) 06/10/19 08:57 MCHC 31.1 g/dL (31.0-37.0) 06/10/19 08:57 RDW 15.7 % (11.5-15.5) H 06/10/19 08:57 Plt Count 244 k/uL (150-450) 06/10/19 08:57 Neutrophils % 73 % 06/10/19 08:57 Lymphocytes % 14 % 06/10/19 08:57 Monocytes % 5 % 06/10/19 08:57 Eosinophils % 5 % 06/10/19 08:57 Basophils % 1 % 06/10/19 08:57 Neutrophils # 6.5 k/uL (1.3-7.7) 06/10/19 08:57 Lymphocytes # 1.3 k/uL (1.0-4.8) 06/10/19 08:57 Monocytes # 0.5 k/uL (0-1.0) 06/10/19 08:57 Eosinophils # 0.4 k/uL (0-0.7) 06/10/19 08:57 Basophils # 0.1 k/uL (0-0.2) 06/10/19 08:57 PT 12.0 sec (9.0-12.0) 06/06/19 22:48 INR 1.2 (<1.2) H 06/06/19 22:48 APTT 21.5 sec (22.0-30.0) L 06/06/19 22:48 Sodium 141 mmol/L (137-145) 06/10/19 08:57 Potassium 4.2 mmol/L (3.5-5.1) 06/10/19 08:57 Chloride 104 mmol/L (98-107) 06/10/19 08:57 Carbon Dioxide 29 mmol/L (22-30) 06/10/19 08:57 Anion Gap 8 mmol/L 06/10/19 08:57 BUN 16 mg/dL (9-20) 06/10/19 08:57 Creatinine 1.23 mg/dL (0.66-1.25) 06/10/19 08:57 Est GFR (CKD-EPI)AfAm 71 (>60 ml/min/1.73 sqM) 06/10/19 08:57 Est GFR (CKD-EPI)NonAf 62 (>60 ml/min/1.73 sqM) 06/10/19 08:57 Glucose 150 mg/dL (74-99) H 06/10/19 08:57 Plasma Lactic Acid [place] 1.4 mmol/L (0.7-2.0) 06/06/19 22:48 Calcium 8.9 mg/dL (8.4-10.2) 06/10/19 08:57 Magnesium 2.1 mg/dL (1.6-2.3) 06/09/19 08:05 Total Bilirubin 2.1 mg/dL (0.2-1.3) H 06/06/19 22:48 AST 30 U/L (17-59) 06/06/19 22:48 ALT 30 U/L (21-72) 06/06/19 22:48 Alkaline Phosphatase 72 U/L (38-126) 06/06/19 22:48 C-Reactive Protein 156.5 mg/L (<10.0) H 06/06/19 22:48 Total Protein 6.6 g/dL (6.3-8.2) 06/06/19 22:48 Albumin 3.5 g/dL (3.5-5.0) 06/06/19 22:48 Urine Color Yellow 06/06/19 22:48 Urine Appearance Clear (Clear) 06/06/19 22:48 Urine pH 7.0 (5.0-8.0) 06/06/19 22:48 Ur Specific [place] 1.023 (1.001-1.035) 06/06/19 22:48 Urine Protein 1+ (Negative) H 06/06/19 22:48 Urine Glucose (UA) Negative (Negative) 06/06/19 22:48 Urine Ketones Trace (Negative) H 06/06/19 22:48 Urine Blood Negative (Negative) 06/06/19 22:48 Urine Nitrite Negative (Negative) 06/06/19 22:48 Urine Bilirubin Negative (Negative) 06/06/19 22:48 Urine Urobilinogen 3.0 mg/dL (<2.0) 06/06/19 22:48 Ur Leukocyte Esterase Negative (Negative) 06/06/19 22:48 Urine RBC 4 /hpf (0-5) 06/06/19 22:48 Urine WBC 2 /hpf (0-5) 06/06/19 22:48 Ur Squamous Epith Cells 1 /hpf (0-4) 06/06/19 22:48 Urine Mucus Occasional /hpf (None) H 06/06/19 22:48 Vancomycin Trough 19.5 ug/mL 06/10/19 12:00 Microbiology 06/06/19 22:48 Blood Blood Culture - Preliminary No Growth after 72 hours Assessment and Plan (1) Abdominal wall cellulitis Narrative/Plan: Pleasant 63-year-old male presents to hospital with a sudden onset of fever chills and flulike illness. The patient noticed that he had developed some pain to his abdominal wall and then noticed the increasing amount of erythema at the pain and swelling. He doesn't presented to the emergency center and is followed evidence of the extensive cellulitis of the abdominal wall. The abrasion injury to the abdominal wall is a likely portal of entry. The ulceration is treated with therahoney. There is abdominal wall is treated with Silvadene which he tolerated well and the past.Antibiotic therapy is currently with Zosyn and vancomycin until further culture results are available. Fortunately is already showing some clinical improvement. Interdry has been utilized under the pannus to absorb any drainage. 06/08/2019 the patient is feeling better in that his pain and discomfort have improved. Has not had complete resolution of his symptoms though. We'll continue with current antibiotic therapy which is intravenous with local wound care. He is tolerating the therahoney in the Silvadene well. We'll reevaluate and hopefully will have further improvement in the next 24-48 hours. 06/09/2019 patient is feeling somewhat better but certainly is with ongoing discomfort especially abdominal wall. The ulceration is responding well to the therahoney dressing and will continue. We'll continue Silvadene to the abdominal wall several times per day with the intravenous antibiotic therapy un til there is marked further improvement. Should not require outpatient IV antibiotic therapy should be able to transition to oral soon. 06/10/2019 patient has further improvement of his status. The discomfort and abdominal wall is generally resolved. The dense erythema is now down to just a minimal area of some mild pink change. He is doing well with the Silvadene and antibiotic therapy. 2 the small ulceration with therahoney's been utilized and has almost completely healed this area are ready. This was likely the portal of entry for his abdominal wall cellulitis. At discharge we'll transition to oral Augmentin since no resistant gram-positive organisms have been found. He should continue local care to the time of his discharge. Current Visit: Yes Status: Acute Code(s): L03.311 - CELLULITIS OF ABDOMINAL WALL SNOMED Code(s): 41743636 (2) Morbid (severe) obesity due to excess calories Current Visit: Yes Status: Acute Code(s): E66.01 - MORBID (SEVERE) OBESITY DUE TO EXCESS CALORIES SNOMED Code(s): 732440659 (3) Sepsis Current Visit: Yes Status: Acute Code(s): A41.9 - SEPSIS, UNSPECIFIED ORGANISM SNOMED Code(s): 93326236
[2019-06-10] MEDS: VANCOMYCIN 1,750 MG in SODIUM CHLORIDE 0.9% 500 ML 500 ML IVPB SCH (23:56)
[2019-06-11] MEDS: SODIUM CHLORIDE 0.9% 1,000 ML IV SCH (03:41)
[2019-06-11 06:17] VITALS: BP 147/71; PULSE 54; TEMP 97.8
[2019-06-11] MEDS: RIVAROXABAN 10 MG TAB PO SCH (08:05)
[2019-06-11] MEDS: HYDROCHLOROTHIAZIDE 12.5 MG CAP PO SCH (08:05)
[2019-06-11] MEDS: ATENOLOL 25 MG TAB PO SCH (08:05)
[2019-06-11] MEDS: PIPERACILLIN-TAZOBACTAM 3.375 GM in SODIUM CHLORIDE 0.9% 100 ML IVPB SCH (08:06)
[2019-06-11 11:41] LABS: Basophils # (A) 0.1 k/uL (0-0.2); Basophils % (A) 1 %; Eosinophils # (A) 0.3 k/uL (0-0.7); Eosinophils % (A) 3 %; HCT 41.6 % (39.0-53.0); HGB 13.2 gm/dL (13.0-17.5); Lymphocytes # (A) 1.1 k/uL (1.0-4.8); Lymphocytes % (A) 12 %; MCH 28.5 pg (25.0-35.0); MCHC 31.8 g/dL (31.0-37.0); MCV 89.7 fL (80.0-100.0); Mean Platelet Volume 7.3; Monocytes # (A) 0.6 k/uL (0-1.0); Monocytes % (A) 7 %; Neutrophils # (A) 6.7 k/uL (1.3-7.7); Neutrophils % (A) 76 %; Platelet Count 220 k/uL (150-450); RBC 4.64 m/uL (4.30-5.90); RDW 15.6 % (11.5-15.5); WBC 8.9 k/uL (3.8-10.6)
[2019-06-11 11:48] LABS: Calcium 8.9 mg/dL (8.4-10.2); Potassium 3.8 mmol/L (3.5-5.1)
[2019-06-11] MEDS: VANCOMYCIN 1,750 MG in SODIUM CHLORIDE 0.9% 500 ML 500 ML IVPB SCH (12:47)
[2019-06-11] MEDS: SILVER sulfADIAZINE Cream 400 GM 1 APPLIC APPLIC TOPICAL SCH (12:47)
--- NOTE | 2019-06-12 08:53 | CDI ---
Documentation Clarification Form Date: 06/12/19 From: Laura Nur Phone: If questions call Leslye Razo @ [phone], Hours-8:30 am & 5 pm M- Celio Admit Date: 06/09/2019 10:02:00 AM Patient Name: Barrington Dawson Visit Number: [id number] Discharge Date: 06/11/2019 3:46:00 PM ATTENTION: The Clinical Documentation Specialists (CDI) and [facility] Coding Staff appreciate your assistance in clarifying documentation. Please respond to the clarification below the line at the bottom and electronically sign. The CDI & [facility] Coding staff will review the response and follow-up if needed. Please note: Queries are made part of the Legal Health Record. If you have any questions, please contact the author of this message via ITS. Dr. Arvin Jimenez The diagnosis sepsis was documented in Dr.Brooks stacy & his PNs , but is not consistently noted in subsequent documentation. History/Risk Factors: abdominal ulcer w cellulitis Clinical Indicators: 06/06 in observation;T-100.9, P-82, R-19, BP-116/67, O2 sat 93, WBC-16.2 & neutrophils-14.6 Treatment: IV fluids, IV Vanco Please clarify if sepsis was: Present/active this admission Treated and resolved this admission Ruled out Other, please specify Clinically unable to determine added to DC summary MTDD
--- NOTE | 2019-06-17 17:13 | P.DS ---
Providers Date of admission: 06/09/19 10:02 Expected date of discharge: 06/11/19 Attending physician: Gordon Jimenez Consults: 06/07/19 01:54 Consult Physician Stat Consulting Provider: Jerod Jean Reason/Comments: Abdominal wall cellulitis Do you want consulting provider notified?: Yes, Notify in am Primary care physician: Gordon Lincoln Hospital Course: Final Diagnoses: (1) Abdominal wall cellulitis Current Visit: Yes Status: Acute Code(s): L03.311 - CELLULITIS OF ABDOMINAL WALL SNOMED Code(s): 66314029 (2) nursing home current use of anticoagulant therapy Current Visit: Yes Status: Acute Code(s): Z79.01 - NURSING HOME (CURRENT) USE OF ANTICOAGULANTS SNOMED Code(s): 054823739 (3) History of pulmonary embolus (PE) Current Visit: Yes Status: Acute Code(s): Z86.711 - PERSONAL HISTORY OF PULMONARY EMBOLISM SNOMED Code(s): 497201860 (4) Morbid (severe) obesity due to excess calories Current Visit: Yes Status: Acute Code(s): E66.01 - MORBID (SEVERE) OBESITY DUE TO EXCESS CALORIES SNOMED Code(s): 918021868 (5) Essential (primary) hypertension Current Visit: Yes [facility] Hospital course:Evert is a 63-year-old white male well-known to me. He has morbid obesity is chronically anticoagulated for recurrent pulmonary embolism. He reports nausea vomiting and feeling flulike illness 2 days ago. He reports that he had a cut on his abdomen. A Band-Aid was in place. Fridays symptoms became worse and he had significant erythema to his abdomen along with fever. He came emergency room and was diagnosed with cellulitis the abdomen. He is currently on Zosyn and vancomycin. He feels quite a bit better. He is on IV fluids for hydration and 100 mL an hour. His morphine when necessary for pain. He denies any chest pains pressures or shortness breath this time. Denies a more nausea or vomiting. 06/08/2019: Patient remains on IV antibiotics of Zosyn and vancomycin. He feels quite a bit better. He remains on anticoagulation with Xarelto. He denies any chest pains, pressures, shortness of breath. He is using Silvadene cream to his cellulitis area. He has had a dry order to his pannus fold. MAXIMUM TEMPERATURE is 99.7F. 06/09/2019 improving on Zosyn, vancomycin with wound care of therjosephoney/nikkie. T-max 99, normal WBC, preliminary blood cultures negative. Ambulating in hallway, tolerating exertion well. Denies chest pain, palpitations or shortness of breath. 06/10/2019 continues to improve on IV antibiotics as per infectious disease. Afebrile, normal WBC. Denies chest pain, palpitations. Denies shortness of breath. Denies difficulty with gait, reports ambulating in hallway. Significant clinical improvement. Patient has been provided by infectious disease for discharge. Patient being discharged home in a stable condition with guarded prognosis. - Exam GENERAL: alert and oriented 3, no acute distress LUNGS: Breath sounds clear to auscultation bilaterally and equal. No wheezes rales or rhonchi. HEART: Regular rate and rhythm without murmurs, rubs or gallops.S1S2 Normal ABDOMEN: Soft, normoactive bowel sounds. No guarding, no rebound. No masses appreciated. Large demarcated area of abdomen -significant improvement in erythema .dressing clean dry and intact over a skin ulcer to the right abdomen. EXTREMITIES: Normal range of motion, no pitting or edema. No clubbing or cyanosis. NEUROLOGICAL: Cranial nerves II through XII grossly intact. Normal speech, normal gait. The impression and plan of care has been dictated as directed. : I performed a history and examination of this patient, discussed the same with the dictator. I agree with the dictator's note ,documented as a scribe. Any additional findings or plans will be noted. Time taken: 35 minutes Patient Condition at Discharge: Stable Plan - Discharge Summary New Discharge Prescriptions: New SILVER sulfADIAZINE Cream [Silvadene 1% Cream] 1 applic TOPICAL TID #400 gm Amoxicillin/Potassium Clav [Augmentin 875-125 Tablet] 1 tab PO Q12HR #14 tab Continue Hydrochlorothiazide 12.5 mg PO DAILY Atenolol [Tenormin] 25 mg PO DAILY Albuterol Sulfate [Proair Hfa] 1 - 2 puff INHALATION RT-Q6H PRN PRN Reason: Shortness Of Breath Albuterol Nebulized [Ventolin Nebulized] 2.5 mg INHALATION RT-Q4H PRN PRN Reason: Dyspnea Rivaroxaban [Xarelto] 10 mg PO DAILY Multivitamin [Multivitamins Adult Gummies] 1 tab PO DAILY Discharge Medication List Albuterol Nebulized [Ventolin Nebulized] 2.5 mg INHALATION RT-Q4H PRN 08/21/18 [History] Albuterol Sulfate [Proair Hfa] 1 - 2 puff INHALATION RT-Q6H PRN 08/21/18 [History] Atenolol [Tenormin] 25 mg PO DAILY 08/21/18 [History] Hydrochlorothiazide 12.5 mg PO DAILY 08/21/18 [History] Multivitamin [Multivitamins Adult Gummies] 1 tab PO DAILY 06/07/19 [History] Rivaroxaban [Xarelto] 10 mg PO DAILY 06/07/19 [History] Amoxicillin/Potassium Clav [Augmentin 875-125 Tablet] 1 tab PO Q12HR #14 tab 06/11/19 [Rx] SILVER sulfADIAZINE Cream [Silvadene 1% Cream] 1 applic TOPICAL TID #400 gm 06/11/19 [Rx] Follow up Appointment(s)/Referral(s): Jerod Jean MD [STAFF PHYSICIAN] - 06/25/19 9:15 am Gordon Lincoln MD [Primary Care Provider] - 1 Week Ambulatory/Diagnostic Orders: Complete Blood Count w/diff [LAB.AMB] Time Frame: 3 Days, Location: None Selected Activity/Diet/Wound Care/Special Instructions: Antibx & wound care as per ID Discharge Disposition: HOME SELF-CARE
== END 2019-06-11 15:46 | disposition home or self-care (01) | DRG 872 ==
LOC: EC 21:23 → UNDOADMOB 06-07 02:17 → 4MS4W 06-07 02:17 → OBSVTOIN 06-09 10:02 → 4MS4W 06-10 16:44
PROVIDERS: ADMIT Family Medicine; ATTEND Family Medicine
DX: A41.9 Sepsis, unspecified organism (principal); L03.311 Cellulitis of abdominal wall; Z68.43 Body mass index [BMI] 50.0-59.9, adult; E66.01 Morbid (severe) obesity due to excess calories; I10 Essential (primary) hypertension; J45.909 Unspecified asthma, uncomplicated; K21.9 Gastro-esophageal reflux disease without esophagitis; L98.491 Non-pressure chronic ulcer of skin of other sites limited to breakdown of skin; K57.90 Diverticulosis of intestine, part unspecified, without perforation or abscess without bleeding; Z87.01 Personal history of pneumonia (recurrent); Z79.01 Long term (current) use of anticoagulants; Z79.899 Other long term (current) drug therapy; Z86.711 Personal history of pulmonary embolism; Z96.653 Presence of artificial knee joint, bilateral; Z90.49 Acquired absence of other specified parts of digestive tract; Z98.890 Other specified postprocedural states; Z91.048 Other nonmedicinal substance allergy status; Z80.52 Family history of malignant neoplasm of bladder; Z83.79 Family history of other diseases of the digestive system; Z82.5 Family history of asthma and other chronic lower respiratory diseases; Z82.69 Family history of other diseases of the musculoskeletal system and connective tissue
CPT/HCPCS: 36415; 74177; 80048; 80053; 80202; 81001; 83605; 83735; 85025; 85610; 85730; 86140; 87040; 93005; 96361; 96365; 96366; 96367; 99285

== ENCOUNTER 2019-09-22 02:01 | Inpatient (IN) | payer MEDICARE, BC ==
[2019-09-22] MEDS ORDERED: ACETAMINOPHEN TAB 500 MG TAB PO STA (02:22)
[2019-09-22] MEDS ORDERED: VANCOMYCIN IV PER PHARMACY 1 EACH MISC MISCELLANE PRN (02:22)
[2019-09-22] MEDS ORDERED: IPRATROPIUM-ALBUTEROL 3 ML NEB INHALATION STA (02:23)
[2019-09-22] MEDS ORDERED: VANCOMYCIN 2,250 MG in SODIUM CHLORIDE 0.9% 500 ML 500 ML IVPB STA (02:26)
--- NOTE | 2019-09-22 02:49 | XR ---
EXAM: XR Chest, 2 Views CLINICAL HISTORY: TECHNIQUE: Frontal and lateral views of the chest. COMPARISON: No relevant prior studies available. FINDINGS: Lungs: Unremarkable. No consolidation. Pleural space: Unremarkable. No pneumothorax. Heart: Unremarkable. No cardiomegaly. Mediastinum: Unremarkable. Bones/joints: Unremarkable. IMPRESSION: Normal chest x-rays.
[2019-09-22] MEDS: SODIUM CHLORIDE 0.9% 500 ML 500 ML IV SCH ×3 (03:07→04:32)
[2019-09-22 03:15] LABS: Basophils # (A) 0.1 k/uL (0-0.2); Basophils % (A) 1 %; Eosinophils # (A) 0.4 k/uL (0-0.7); Eosinophils % (A) 2 %; HCT 43.2 % (39.0-53.0); HGB 14.4 gm/dL (13.0-17.5); Lymphocytes # (A) 0.9 k/uL (1.0-4.8); Lymphocytes % (A) 4 %; MCH 31.1 pg (25.0-35.0); MCHC 33.2 g/dL (31.0-37.0); MCV 93.5 fL (80.0-100.0); Mean Platelet Volume 6.2; Monocytes # (A) 0.7 k/uL (0-1.0); Monocytes % (A) 4 %; Neutrophils # (A) 18.9 k/uL (1.3-7.7); Neutrophils % (A) 90 %; Platelet Count 214 k/uL (150-450); RBC 4.62 m/uL (4.30-5.90); RDW 14.2 % (11.5-15.5); WBC 21.1 k/uL (3.8-10.6)
[2019-09-22 03:21] LABS: Appearance,Urine Clear (Clear); Bilirubin,Urine Negative (Negative); Blood,Urine Negative (Negative); Color,Urine Yellow; Glucose,Urine (UA) Negative (Negative); Ketones,Urine Negative (Negative); Leukocyte Esterase,Urine Negative (Negative); Nitrite,Urine Negative (Negative); PH, Urine 5.5 (5.0-8.0); Protein,Urine Trace (Negative); Specific Gravity,Urine 1.025 (1.001-1.035); Urobilinogen,Urine <2.0 mg/dL (<2.0)
[2019-09-22 03:25] LABS: Partial Thromboplastin Time 23.2 sec (22.0-30.0); Prothrombin Time 10.5 sec (9.0-12.0)
[2019-09-22 03:29] LABS: Albumin 3.6 g/dL (3.5-5.0); Potassium 4.1 mmol/L (3.5-5.1); Total Bilirubin 0.7 mg/dL (0.2-1.3); Total Protein 7.1 g/dL (6.3-8.2)
[2019-09-22] MEDS ORDERED: SODIUM CHLORIDE 0.9% 1,000 ML IV STA (03:49)
[2019-09-22] MEDS ORDERED: ALBUTEROL NEB (CONC) 2.5 MG/0.5 ML INHALATION PRN (04:07)
--- NOTE | 2019-09-22 04:07 | ED ---
General Adult HPI - General Source: patient, RN notes reviewed, old records reviewed Mode of arrival: ambulatory Limitations: no limitations <Roel Chavez - Last Filed: 09/22/19 04:05> <Vern Martinez - Last Filed: 09/22/19 04:14> - General Chief complaint: Fever Stated complaint: Fever/Dizziness Time Seen by Provider: 09/22/19 02:14 - History of Present Illness Initial comments: 64-year-old male patient past medical history significant for prior pulmonary embolism, asthma presents ED chief complaint of fever, cough, congestion. Patient reports that has been ongoing for approximately 5 days. Patient reports that approximately 3 months ago he was admitted for a cellulitis of his anterior abdominal wall. Patient reports that he had fevers at home. Reports a very mild amount of suprapubic abdominal pain. Denies any other complaints. Systemic: Pt denies fatigue,, rash. Pt denies weakness, night sweats, weight loss. Neuro: Pt denies headache, visual disturbances, syncope or pre-syncope. HEENT: Pt denies ocular discharge or irritation, otalgia, rhinorrhea, pharyngitis or notable lymphadenopathy. Cardiopulmonary: Pt denies chest pain, SOB, heart palpitations, dyspnea on exertion. Abdominal/GI: Pt denies n/v/d. : Pt denies dysuria, burning w/ urination, frequency/urgency. Denies new onset urinary or bowel incontinence. MSK: Pt denies myalgia, loss of strength or function in extremities. Neuro: Pt denies new onset weakness, paresthesias. (Roel Chavez) - Related Data Home Medications Medication Instructions Recorded Confirmed Albuterol Nebulized [Ventolin 2.5 mg INHALATION RT-Q4H PRN 08/21/18 06/07/19 Nebulized] Albuterol Sulfate [Proair Hfa] 1 - 2 puff INHALATION RT-Q6H PRN 08/21/18 06/07/19 Atenolol [Tenormin] 25 mg PO DAILY 08/21/18 06/07/19 Hydrochlorothiazide 12.5 mg PO DAILY 08/21/18 06/07/19 Multivitamin [Multivitamins Adult 1 tab PO DAILY 06/07/19 06/07/19 Gummies] Rivaroxaban [Xarelto] 10 mg PO DAILY 06/07/19 06/07/19 Previous Rx's Medication Instructions Recorded Amoxicillin/Potassium Clav 1 tab PO Q12HR #14 tab 06/11/19 [Augmentin 875-125 Tablet] SILVER sulfADIAZINE Cream 1 applic TOPICAL TID #400 gm 06/11/19 [Silvadene 1% Cream] Allergies Allergy/AdvReac Type Severity Reaction Status Date / Time cat dander Allergy Anaphylaxis Verified 09/22/19 02:09 Review of Systems ROS Other: All systems not noted in ROS Statement are negative. <Roel Chavez - Last Filed: 09/22/19 04:05> ROS Other: All systems not noted in ROS Statement are negative. <Vern Martinez - Last Filed: 09/22/19 04:14> ROS Statement: Those systems with pertinent positive or pertinent negative responses have been documented in the HPI. Past Medical History Past Medical History: Asthma, GERD/Reflux, Hypertension, Pneumonia, Pulmonary Embolus (PE) Additional Past Medical History / Comment(s): diverticulosis, asthma as a child, cellulitis of abdominal wall History of Any Multi-Drug Resistant Organisms: None Reported Past Surgical History: Appendectomy, Orthopedic Surgery Additional Past Surgical History / Comment(s): rt rotator cuff, rt knee repair o f torn meniscus, bilat knee replacement 2019 Past Anesthesia/Blood Transfusion Reactions: No Reported Reaction Past Psychological History: No Psychological Hx Reported Smoking Status: Never smoker Past Alcohol Use History: Occasional Past Drug Use History: None Reported - Past Family History Father Family Medical History: Cancer Additional Family Medical History / Comment(s): bladder cancer with metastasis, diverticulosis Mother Family Medical History: Asthma Brother(s) Additional Family Medical History / Comment(s): scleroderma <Roel Chavez - Last Filed: 09/22/19 04:05> General Exam Limitations: no limitations <Roel Chavez - Last Filed: 09/22/19 04:05> - General Exam Comments Initial Comments: Constitutional: NAD, AOX3, Pt has pleasant affect. HEENT: NC/AT, trachea midline, neck supple, no lymphadenopathy. Posterior pharynx non erythematous, without exudates. External ears appear normal, without discharge. Mucous membranes moist. Eyes PERRLA, EOM intact. There is no scleral icterus. No pallor noted. Cardiopulmonary: RRR, no murmurs, rubs or gallops, no JVD noted. Lungs very mild wheezing noted in anterior lung ye, resolved after breathing treatment. No peripheral edema. Abdominal exam: Abdomen soft and non-distended. Diffuse cellulitis noted on her anterior abdominal wall, distal to naval. No fluctuance, no discharge. Abdomen very mild tenderness suprapubic region.. Bowel sounds active in LLQ. No hepatosplenomegaly. No ecchymosis Neuro: CN II-XII grossly intact. No nuchal rigidity. No raccon eyes, no varner sign, no hemotympanum. No cervical spinal tenderness. MSK: No posterior calf tenderness bilaterally, homans sign negative bilaterally. Posterior tibialis and radial pulse +2 bilaterally. Sensation intact in upper and lower extremities. Full active ROM in upper and lower extremities, 5/5 stregnth. (Roel Chavez) Course Vital Signs 09/22/19 09/22/19 09/22/19 02:06 02:47 02:51 Temperature 102 F H Pulse Rate 107 H 104 H 108 H Respiratory 22 Rate Blood Pressure 121/71 O2 Sat by Pulse 94 L Oximetry 09/22/19 09/22/19 03:16 03:58 Temperature 99.1 F Pulse Rate 95 96 Respiratory 18 18 Rate Blood Pressure 115/61 112/62 O2 Sat by Pulse 95 94 L Oximetry Medical Decision Making - Lab Data Result diagrams: 09/22/19 03:03 09/22/19 03:03 - EKG Data -: EKG Interpreted by Ri (and Dr. Wood) <Roel Chavez - Last Filed: 09/22/19 04:05> - Lab Data Result diagrams: 09/22/19 03:03 09/22/19 03:03 <Vern Martinez - Last Filed: 09/22/19 04:14> - Medical Decision Making 64-year-old male patient past medical history significant for prior pulmonary embolism, asthma presents ED chief complaint of fever, cough, congestion. Mia ent reports that has been ongoing for approximately 5 days. Patient reports that approximately 3 months ago he was admitted for a cellulitis of his anterior abdominal wall. Patient reports that he had fevers at home. Reports a very mild amount of suprapubic abdominal pain. Denies any other complaints. Patient vital signs displayed moderately febrile and tachycardic. Patient administered antipyretic. Physical exam displayed: Abdomen soft and non-distended. Diffuse cellulitis noted on her anterior abdominal wall, distal to naval. No fluctuance, no discharge. Abdomen very mild tenderness suprapubic region. I'll amount of wheezing noted, resolved after breathing treatment. Lymph inves tigations revealed a leukocytosis of 21. Chemistry noncompressive. Back acid very mildly elevated at 2.2. Urine negative. Influenza negative. Chest x-ray negative. EKG displayed sinus tachycardia. Nonischemic. Patient will be admitted for cellulitis. Initiated on Rocephin, vancomycin. Blood cultures obtained. Case discussed with Dr. Wood. (Roel Chavez) I saw this patient in conjunction with the physician clinic assistant. I performed independent history and physical exam. Agree with case management. Case discussed with Dr. Lincoln, who will admit, and requested consult for Dr. Jean who was involved in the patient's care with the previous episode of cellulitis. (Vern Martinez) - Lab Data Lab Results 09/22/19 09/22/19 09/22/19 Range/Units 03:03 03:03 03:03 WBC 21.1 H (3.8-10.6) k/uL RBC 4.62 (4.30-5.90) m/uL Hgb 14.4 (13.0-17.5) gm/dL Hct 43.2 (39.0-53.0) % MCV 93.5 (80.0-100.0) fL MCH 31.1 (25.0-35.0) pg MCHC 33.2 (31.0-37.0) g/dL RDW 14.2 (11.5-15.5) % Plt Count 214 (150-450) k/uL Neutrophils % 90 % Lymphocytes % 4 % Monocytes % 4 % Eosinophils % 2 % Basophils % 1 % Neutrophils # 18.9 H (1.3-7.7) k/uL Lymphocytes # 0.9 L (1.0-4.8) k/uL Monocytes # 0.7 (0-1.0) k/uL Eosinophils # 0.4 (0-0.7) k/uL Basophils # 0.1 (0-0.2) k/uL PT (9.0-12.0) sec INR (<1.2) APTT (22.0-30.0) sec Sodium 137 (137-145) mmol/L Potassium 4.1 (3.5-5.1) mmol/L Chloride 106 (98-107) mmol/L Carbon Dioxide 21 L (22-30) mmol/L Anion Gap 10 mmol/L BUN 28 H (9-20) mg/dL Creatinine 1.17 (0.66-1.25) mg/dL Est GFR (CKD-EPI)AfAm 75 (>60 ml/min/1.73 sqM) Est GFR (CKD-EPI)NonAf 65 (>60 ml/min/1.73 sqM) Glucose 153 H (74-99) mg/dL Plasma Lactic Acid [place] 2.2 H* (0.7-2.0) mmol/L Calcium 9.0 (8.4-10.2) mg/dL Total Bilirubin 0.7 (0.2-1.3) mg/dL AST 38 (17-59) U/L ALT 37 (21-72) U/L Alkaline Phosphatase 98 (38-126) U/L Troponin I (0.000-0.034) ng/mL Total Protein 7.1 (6.3-8.2) g/dL Albumin 3.6 (3.5-5.0) g/dL Urine Color Urine Appearance (Clear) Urine pH (5.0-8.0) Ur Specific [place] (1.001-1.035) Urine Protein (Negative) Urine Glucose (UA) (Negative) Urine Ketones (Negative) Urine Blood (Negative) Urine Nitrite (Negative) Urine Bilirubin (Negative) Urine Urobilinogen (<2.0) mg/dL Ur Leukocyte Esterase (Negative) Influenza Type A RNA (Not Detectd) Influenza Type B (PCR) (Not Detectd) 09/22/19 09/22/19 09/22/19 Range/Units 03:03 03:03 03:03 WBC (3.8-10.6) k/uL RBC (4.30-5.90) m/uL Hgb (13.0-17.5) gm/dL Hct (39.0-53.0) % MCV (80.0-100.0) fL MCH (25.0-35.0) pg MCHC (31.0-37.0) g/dL RDW (11.5-15.5) % Plt Count (150-450) k/uL Neutrophils % % Lymphocytes % % Monocytes % % Eosinophils % % Basophils % % Neutrophils # (1.3-7.7) k/uL Lymphocytes # (1.0-4.8) k/uL Monocytes # (0-1.0) k/uL Eosinophils # (0-0.7) k/uL Basophils # (0-0.2) k/uL PT 10.5 (9.0-12.0) sec INR 1.0 (<1.2) APTT 23.2 (22.0-30.0) sec Sodium (137-145) mmol/L Potassium (3.5-5.1) mmol/L Chloride (98-107) mmol/L Carbon Dioxide (22-30) mmol/L Anion Gap mmol/L BUN (9-20) mg/dL Creatinine (0.66-1.25) mg/dL Est GFR (CKD-EPI)AfAm (>60 ml/min/1.73 sqM) Est GFR (CKD-EPI)NonAf (>60 ml/min/1.73 sqM) Glucose (74-99) mg/dL Plasma Lactic Acid [place] (0.7-2.0) mmol/L Calcium (8.4-10.2) mg/dL Total Bilirubin (0.2-1.3) mg/dL AST (17-59) U/L ALT (21-72) U/L Alkaline Phosphatase (38-126) U/L Troponin I 0.013 (0.000-0.034) ng/mL Total Protein (6.3-8.2) g/dL Albumin (3.5-5.0) g/dL Urine Color Yellow Urine Appearance Clear (Clear) Urine pH 5.5 (5.0-8.0) Ur Specific [place] 1.025 (1.001-1.035) Urine Protein Trace H (Negative) Urine Glucose (UA) Negative (Negative) Urine Ketones Negative (Negative) Urine Blood Negative (Negative) Urine Nitrite Negative (Negative) Urine Bilirubin Negative (Negative) Urine Urobilinogen <2.0 (<2.0) mg/dL Ur Leukocyte Esterase Negative (Negative) Influenza Type A RNA (Not Detectd) Influenza Type B (PCR) (Not Detectd) 10/28/19 Range/Units 03:03 WBC (3.8-10.6) k/uL RBC (4.30-5.90) m/uL Hgb (13.0-17.5) gm/dL Hct (39.0-53.0) % MCV (80.0-100.0) fL MCH (25.0-35.0) pg MCHC (31.0-37.0) g/dL RDW (11.5-15.5) % Plt Count (150-450) k/uL Neutrophils % % Lymphocytes % % Monocytes % % Eosinophils % % Basophils % % Neutrophils # (1.3-7.7) k/uL Lymphocytes # (1.0-4.8) k/uL Monocytes # (0-1.0) k/uL Eosinophils # (0-0.7) k/uL Basophils # (0-0.2) k/uL PT (9.0-12.0) sec INR (<1.2) APTT (22.0-30.0) sec Sodium (137-145) mmol/L Potassium (3.5-5.1) mmol/L Chloride (98-107) mmol/L Carbon Dioxide (22-30) mmol/L Anion Gap mmol/L BUN (9-20) mg/dL Creatinine (0.66-1.25) mg/dL Est GFR (CKD-EPI)AfAm (>60 ml/min/1.73 sqM) Est GFR (CKD-EPI)NonAf (>60 ml/min/1.73 sqM) Glucose (74-99) mg/dL Plasma Lactic Acid [place] (0.7-2.0) mmol/L Calcium (8.4-10.2) mg/dL Total Bilirubin (0.2-1.3) mg/dL AST (17-59) U/L ALT (21-72) U/L Alkaline Phosphatase (38-126) U/L Troponin I (0.000-0.034) ng/mL Total Protein (6.3-8.2) g/dL Albumin (3.5-5.0) g/dL Urine Color Urine Appearance (Clear) Urine pH (5.0-8.0) Ur Specific [place] (1.001-1.035) Urine Protein (Negative) Urine Glucose (UA) (Negative) Urine Ketones (Negative) Urine Blood (Negative) Urine Nitrite (Negative) Urine Bilirubin (Negative) Urine Urobilinogen (<2.0) mg/dL Ur Leukocyte Esterase (Negative) Influenza Type A RNA Not Detected (Not Detectd) Influenza Type B (PCR) Not Detected (Not Detectd) - EKG Data EKG Comments: Ventricular rate 101, PATTI 158, QRS 90, QT/QTC 342/443. Sinus tachycardia, otherwise normal EKG. (Roel Chavez) Disposition Is patient prescribed a controlled substance at d/c from ED?: No <Roel Chavez - Last Filed: 09/22/19 04:05> <Vern Martinez - Last Filed: 09/22/19 04:14> Clinical Impression: Cellulitis Disposition: ADMITTED IP TO THIS HOSP Condition: Stable Referrals: Gordon Lincoln MD [Primary Care Provider] - 1-2 days
[2019-09-22] MEDS ORDERED: IBUPROFEN 400 MG TAB PO PRN (04:08)
[2019-09-22] MEDS ORDERED: MORPHINE SULFATE 4 MG/ML SYRINGE IV PRN (04:08)
[2019-09-22] MEDS ORDERED: NALOXONE 0.4 MG/ML 1 ML VIAL IV PRN (04:08)
[2019-09-22] MEDS ORDERED: ACETAMINOPHEN TAB 325 MG TAB PO PRN (04:08)
[2019-09-22] MEDS ORDERED: ALBUTEROL NEBULIZED 2.5 MG/3 ML INHALATION PRN (04:32)
[2019-09-22] MEDS: SODIUM CHLORIDE 0.9% 1,000 ML IV SCH ×2 (07:56→16:32)
--- NOTE | 2019-09-22 12:16 | P.CONS ---
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 Patient did have follow-up in the office and has been doing well until his went to [place] for vacation. He has been home and has not been drinking well and not using Silvadene on his abdomen. He states he has cold symptoms with fever cough and congestion. He thought he may have pneumonia. He has been taking Robitussin and Mucinex without any improvement. He came into [facility] emergency center for evaluation. Influenza testing negative. UA showed trace protein. Electrolytes within normal limits, BUN 20 creatinine 1.17, blood sugar 153. Lactic acid 2.2 followed by 1.8. Initial white count 21.1. Chest x-ray was normal. Temperature 102. Patient was started on ceftriaxone, vancomycin. He is status post 1-1/2 L of IV fluid [facility] History significant for pulmonary embolism on Xarelto. Review of Systems Constitutional: Reports fever, Denies anorexia, Denies chills, Denies fatigue, Denies lethargy, Denies malaise, Denies poor appetite, Denies weight loss Eyes: denies blurred vision, denies pain Ears, nose, mouth and throat: Denies dysphagia, Denies headache, Denies nasal congestion, Denies nasal discharge, Denies sore throat, Denies vertigo Cardiovascular: Reports decreased exercise tolerance, Reports dyspnea on exertion, Reports leg edema, Denies chest pain, Denies edema, Denies lightheadedness, Denies palpitations, Denies shortness of breath, Denies syncope Respiratory: Reports wheezing, Denies cough, Denies cough with sputum, Denies dyspnea, Denies excessive sputum, Denies hemoptysis, Denies home oxygen Gastrointestinal: Denies abdominal pain, Denies diarrhea, Denies loss of appetite, Denies nausea, Denies vomiting Genitourinary: Denies dysuria, Denies urinary retention Musculoskeletal: Denies frequent falls, Denies gait dysfunction, Denies myalgias Integumentary: Reports color changes, Reports darkening of skin, Reports wounds, Denies pruritus, Denies rash Neurological: Denies change in mentation, Denies confusion, Denies gait dysfunction, Denies numbness, Denies weakness Psychiatric: Denies anxiety, Denies depression Endocrine: Denies fatigue, Denies weight change Past Medical History Past Medical History: Asthma, GERD/Reflux, Hypertension, Pneumonia, Pulmonary Embolus (PE) Additional Past Medical History / Comment(s): diverticulosis, asthma as a child, cellulitis of abdominal wall History of Any Multi-Drug Resistant Organisms: None Reported Past Surgical History: Appendectomy, Orthopedic Surgery Additional Past Surgical History / Comment(s): rt rotator cuff, rt knee repair of torn meniscus, bilat knee replacement 2019 Past Anesthesia/Blood Transfusion Reactions: No Reported Reaction Past Psychological History: No Psychological Hx Reported Additional Psychological History / Comment(s): and lives with his . 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 No international travel. Does travel to [place]. No animal exposures. No smoking in tobacco or alcohol use Smoking Status: Never smoker Past Alcohol Use History: Occasional Additional Past Alcohol Use History / Comment(s): Patient reports drinking alcohol once a month Past Drug Use History: None Reported - Past Family History Father Family Medical History: Cancer Additional Family Medical History / Comment(s): bladder cancer with metastasis, diverticulosis Mother Family Medical History: Asthma Brother(s) Additional Family Medical History / Comment(s): scleroderma Medications and Allergies Home Medications Medication Instructions Recorded Confirmed Type Albuterol Nebulized [Ventolin 2.5 mg INHALATION RT-Q4H PRN 08/21/18 09/22/19 History Nebulized] Albuterol Sulfate [Proair Hfa] 1 - 2 puff INHALATION RT-Q6H PRN 08/21/18 09/22/19 History Atenolol [Tenormin] 25 mg PO DAILY 08/21/18 09/22/19 History Hydrochlorothiazide 12.5 mg PO DAILY 08/21/18 09/22/19 History Multivitamin [Multivitamins Adult 1 tab PO DAILY 06/07/19 09/22/19 History Gummies] Rivaroxaban [Xarelto] 10 mg PO DAILY 06/07/19 09/22/19 History SILVER sulfADIAZINE Cream 1 applic TOPICAL TID #400 gm 06/11/19 09/22/19 Rx [Silvadene 1% Cream] Allergies Allergy/AdvReac Type Severity Reaction Status Date / Time cat dander Allergy Anaphylaxis Verified 09/22/19 08:07 Physical Exam Vitals: Vital Signs Temp Pulse Resp BP Pulse Ox 09/22/19 03:58 99.1 F 96 18 112/62 94 L 09/22/19 03:16 95 18 115/61 95 09/22/19 02:51 108 H 09/22/19 02:47 104 H 09/22/19 02:06 102 F H 107 H 22 121/71 94 L Intake and Output 09/21/19 09/22/19 09/22/19 22:59 06:59 14:59 Other: Weight 181.437 kg Gen.: This is a 64-year-old morbidly obese male. He is initially seen walking in the hallway and appears to be doing well. He complains of some shortness of breath with exertion which is at his baseline. HEENT: Anicteric conjunctiva are pink and moist nasal mucosa grossly intact without significant lesions, there is no thrush. Neck: The neck is supple without significant lymphadenopathy or thyromegaly. Lungs: Good bilateral air entry without significant crackles or wheezing. There is no significant bronchial sounds. There is no egophony or dullness. Heart: Regular rate and rhythm with an audible S1-S2, no S3 no S4. There is no significant murmur click or rub. Abdomen: Abdomen is soft. There is tenderness that is present from a few inches below umbilicus down through the abdominal pannus with dense erythema induration and tenderness. There is the small ulceration on the right lower quadrant approximately without drainage. There is no expressible purulence. There is no necrotic tissue. Slight erythema under pannus on the left. Extremities: The upper extremities have excellent pulses they are symmetric, no significant petechiae or telangiectasia. No splinter hemorrhages were noted. The lower extremities have trace bilateral edema. The peripheral pulses were 2+ and symmetric.The bilateral total knee arthroplasty scars bilaterally are well-healed Neuro: Awake alert oriented to person place and time. There are no acute new gross focal sensory motor deficits. Results Results: Laboratory Results WBC 21.1 k/uL (3.8-10.6) H 09/22/19 03:03 RBC 4.62 m/uL (4.30-5.90) 09/22/19 03:03 Hgb 14.4 gm/dL (13.0-17.5) 09/22/19 03:03 Hct 43.2 % (39.0-53.0) 09/22/19 03:03 MCV 93.5 fL (80.0-100.0) 09/22/19 03:03 MCH 31.1 pg (25.0-35.0) 09/22/19 03:03 MCHC 33.2 g/dL (31.0-37.0) 09/22/19 03:03 RDW 14.2 % (11.5-15.5) 09/22/19 03:03 Plt Count 214 k/uL (150-450) 09/22/19 03:03 Neutrophils % 90 % 09/22/19 03:03 Lymphocytes % 4 % 09/22/19 03:03 Monocytes % 4 % 09/22/19 03:03 Eosinophils % 2 % 09/22/19 03:03 Basophils % 1 % 09/22/19 03:03 Neutrophils # 18.9 k/uL (1.3-7.7) H 09/22/19 03:03 Lymphocytes # 0.9 k/uL (1.0-4.8) L 09/22/19 03:03 Monocytes # 0.7 k/uL (0-1.0) 09/22/19 03:03 Eosinophils # 0.4 k/uL (0-0.7) 09/22/19 03:03 Basophils # 0.1 k/uL (0-0.2) 09/22/19 03:03 PT 10.5 sec (9.0-12.0) 09/22/19 03:03 INR 1.0 (<1.2) 09/22/19 03:03 APTT 23.2 sec (22.0-30.0) 09/22/19 03:03 Sodium 137 mmol/L (137-145) 09/22/19 03:03 Potassium 4.1 mmol/L (3.5-5.1) 09/22/19 03:03 Chloride 106 mmol/L (98-107) 09/22/19 03:03 Carbon Dioxide 21 mmol/L (22-30) L 09/22/19 03:03 Anion Gap 10 mmol/L 09/22/19 03:03 BUN 28 mg/dL (9-20) H 09/22/19 03:03 Creatinine 1.17 mg/dL (0.66-1.25) 09/22/19 03:03 Est GFR (CKD-EPI)AfAm 75 (>60 ml/min/1.73 sqM) 09/22/19 03:03 Est GFR (CKD-EPI)NonAf 65 (>60 ml/min/1.73 sqM) 09/22/19 03:03 Glucose 153 mg/dL (74-99) H 09/22/19 03:03 Lactic Ac Sepsis Rflx Y 09/22/19 03:48 Plasma Lactic Acid [place] 1.8 mmol/L (0.7-2.0) 09/22/19 07:10 Calcium 9.0 mg/dL (8.4-10.2) 09/22/19 03:03 Total Bilirubin 0.7 mg/dL (0.2-1.3) 09/22/19 03:03 AST 38 U/L (17-59) 09/22/19 03:03 ALT 37 U/L (21-72) 09/22/19 03:03 Alkaline Phosphatase 98 U/L (38-126) 09/22/19 03:03 Troponin I 0.013 ng/mL (0.000-0.034) 09/22/19 03:03 Total Protein 7.1 g/dL (6.3-8.2) 09/22/19 03:03 Albumin 3.6 g/dL (3.5-5.0) 09/22/19 03:03 Urine Color Yellow 09/22/19 03:03 Urine Appearance Clear (Clear) 09/22/19 03:03 Urine pH 5.5 (5.0-8.0) 09/22/19 03:03 Ur Specific [place] 1.025 (1.001-1.035) 09/22/19 03:03 Urine Protein Trace (Negative) H 09/22/19 03:03 Urine Glucose (UA) Negative (Negative) 09/22/19 03:03 Urine Ketones Negative (Negative) 09/22/19 03:03 Urine Blood Negative (Negative) 09/22/19 03:03 Urine Nitrite Negative (Negative) 09/22/19 03:03 Urine Bilirubin Negative (Negative) 09/22/19 03:03 Urine Urobilinogen <2.0 mg/dL (<2.0) 09/22/19 03:03 Ur Leukocyte Esterase Negative (Negative) 09/22/19 03:03 Influenza Type A RNA Not Detected (Not Detectd) 09/22/19 03:03 Influenza Type B (PCR) Not Detected (Not Detectd) 09/22/19 03:03 CBC & Chem 7: 09/22/19 03:03 09/22/19 03:03 Labs: Abnormal Lab Results - Last 24 Hours (Table) 09/22/19 09/22/19 09/22/19 Range/Units 03:03 03:03 03:03 WBC 21.1 H (3.8-10.6) k/uL Neutrophils # 18.9 H (1.3-7.7) k/uL Lymphocytes # 0.9 L (1.0-4.8) k/uL Carbon Dioxide 21 L (22-30) mmol/L BUN 28 H (9-20) mg/dL Glucose 153 H (74-99) mg/dL Plasma Lactic Acid [place] 2.2 H* (0.7-2.0) mmol/L Urine Protein (Negative) 09/22/19 Range/Units 03:03 WBC (3.8-10.6) k/uL Neutrophils # (1.3-7.7) k/uL Lymphocytes # (1.0-4.8) k/uL Carbon Dioxide (22-30) mmol/L BUN (9-20) mg/dL Glucose (74-99) mg/dL Plasma Lactic Acid [place] (0.7-2.0) mmol/L Urine Protein Trace H (Negative) Assessment and Plan Plan: This is a 64-year-old male presented to the hospital with sepsis most likely secondary to cellulitis of the abdominal wall and pannus. He is currently on ceftriaxone and vancomycin. Blood cultures in progress. No wound culture obtained as there is no active drainage. Local wound care will be added for Silvadene daily. Continue supportive care. Further recommendations as patient progresses. The above dictated assessment and findings were discussed with Dr. Jean. The impression and plan of care have been directed as dictated. Bhavana Chaparro nurse practitioner acting as scribe for Dr. Jean.
[2019-09-22] MEDS ORDERED: VANCOMYCIN 2,500 MG in SODIUM CHLORIDE 0.9% 500 ML 500 ML IVPB SCH (15:00)
[2019-09-22] MEDS: VANCOMYCIN 2,500 MG in SODIUM CHLORIDE 0.9% 500 ML 500 ML IVPB SCH (16:22)
[2019-09-22] MEDS ORDERED: IPRATROPIUM-ALBUTEROL 3 ML NEB INHALATION PRN (16:47)
--- NOTE | 2019-09-22 16:47 | P.HPIM ---
History of Present Illness H&P Date: 09/22/19 Chief Complaint: Abdominal wall cellulitis This is 64-year-old gentleman with history of recent abdominal wall cellulitis in May 2019, presented to the ER with complaints of fever or cough congestion 5 days accompanied by a suprapubic abdominal pain. T-max 102, WBC 21.1, chest x-ray reported nonacute. Influenza negative. Lactic acid 2.2, creatinine 1.17. EKG reporting sinus tachycardia. UA negative. Blood cultures obtained. Received IV fluids, IV antibiotics initiated. Patient reports has been away for over a week and during this time his bladder intake has been down and he has not been using his Silvadene on his abdomen. Blood sugars controlled. Anticoa gulated on Xarelto for history of PE. Denies chest pain, palpitations or increased shortness of breath. Denies lightheadedness, dizziness or focal deficits. Review of Systems ROS Other: All systems not noted in ROS Statement are negative. ROS Statement: Those systems with pertinent positive or pertinent negative responses have been documented in the HPI. Past Medical History Past Medical History: Asthma, GERD/Reflux, Hypertension, Pneumonia, Pulmonary Embolus (PE) Additional Past Medical History / Comment(s): diverticulosis, asthma as a child, cellulitis of abdominal wall History of Any Multi-Drug Resistant Organisms: None Reported Past Surgical History: Appendectomy, Orthopedic Surgery Additional Past Surgical History / Comment(s): rt rotator cuff, rt knee repair of torn meniscus, bilat knee replacement 2019 Past Anesthesia/Blood Transfusion Reactions: No Reported Reaction Past Psychological History: No Psychological Hx Reported Additional Psychological History / Comment(s): and lives with his . 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 No international travel. Does travel to [place]. No animal exposures. No smoking in tobacco or alcohol use Smoking Status: Never smoker Past Alcohol Use History: Occasional Additional Past Alcohol Use History / Comment(s): Patient reports drinking alco hol once a month Past Drug Use History: None Reported - Past Family History Father Family Medical History: Cancer Additional Family Medical History / Comment(s): bladder cancer with metastasis, diverticulosis Mother Family Medical History: Asthma Brother(s) Additional Family Medical History / Comment(s): scleroderma Medications and Allergies Home Medications Medication Instructions Recorded Confirmed Type Albuterol Nebulized [Ventolin 2.5 mg INHALATION RT-Q4H PRN 08/21/18 09/22/19 History Nebulized] Albuterol Sulfate [Proair Hfa] 1 - 2 puff INHALATION RT-Q6H PRN 08/21/18 09/22/19 History Atenolol [Tenormin] 25 mg PO DAILY 08/21/18 09/22/19 History Hydrochlorothiazide 12.5 mg PO DAILY 08/21/18 09/22/19 History Multivitamin [Multivitamins Adult 1 tab PO DAILY 06/07/19 09/22/19 History Gummies] Rivaroxaban [Xarelto] 10 mg PO DAILY 06/07/19 09/22/19 History SILVER sulfADIAZINE Cream 1 applic TOPICAL TID #400 gm 06/11/19 09/22/19 Rx [Silvadene 1% Cream] Allergies Allergy/AdvReac Type Severity Reaction Status Date / Time cat dander Allergy Anaphylaxis Verified 09/22/19 08:07 Physical Exam Vitals: Vital Signs Temp Pulse Pulse Resp BP BP Pulse Ox 09/22/19 07:00 98.1 F 72 16 117/71 99 09/22/19 03:58 99.1 F 96 18 112/62 94 L 09/22/19 03:16 95 18 115/61 95 09/22/19 02:51 108 H 09/22/19 02:47 104 H 09/22/19 02:06 102 F H 107 H 22 121/71 94 L Intake and Output 09/21/19 09/22/19 09/22/19 22:59 06:59 14:59 Other: Weight 181.437 kg GENERAL: Well-appearing, well-nourished and in no acute distress, morbidly obese white male, sitting up at side of bed. HEAD: Atraumatic, normocephalic. EYES: Pupils equal round and reactive to light, extraocular movements intact, sclera anicteric, conjunctiva are normal. ENT:nares patent, oropharynx clear without exudates. Moist mucous membranes. NECK: Normal range of motion, supple without lymphadenopathy or JVD, no thyromegaly LUNGS: Breath sounds clear to auscultation bilaterally and equal. No wheezes rales or rhonchi. HEART: Regular rate and rhythm without murmurs, rubs or gallops.S1S2 Normal ABDOMEN: Soft, normoactive bowel sounds. No guarding, no rebound. No masses appreciated. Diffuse cellulitis with Tender, warm, reddened, positive erythema abdominal wall, below umbilicus through pannus area with fluctuance, no drainage. EXTREMITIES: Normal range of motion, no pitting or edema. No clubbing or cyanosis. NEUROLOGICAL: Cranial nerves II through XII grossly intact. Normal speech, normal gait. PSYCH: Normal mood, normal affect. SKIN: Warm, Dry, normal turgor, no rashes or lesions noted. Results CBC & Chem 7: 09/22/19 03:03 09/22/19 03:03 Labs: Abnormal Lab Results - Last 24 Hours (Table) 09/22/19 09/22/19 09/22/19 Range/Units 03:03 03:03 03:03 WBC 21.1 H (3.8-10.6) k/uL Neutrophils # 18.9 H (1.3-7.7) k/uL Lymphocytes # 0.9 L (1.0-4.8) k/uL Carbon Dioxide 21 L (22-30) mmol/L BUN 28 H (9-20) mg/dL Glucose 153 H (74-99) mg/dL Plasma Lactic Acid [place] 2.2 H* (0.7-2.0) mmol/L Urine Protein (Negative) 09/22/19 Range/Units 03:03 WBC (3.8-10.6) k/uL Neutrophils # (1.3-7.7) k/uL Lymphocytes # (1.0-4.8) k/uL Carbon Dioxide (22-30) mmol/L BUN (9-20) mg/dL Glucose (74-99) mg/dL Plasma Lactic Acid [place] (0.7-2.0) mmol/L Urine Protein Trace H (Negative) Thrombosis Risk Factor Assmnt - Choose All That Apply Any of the Below Risk Factors Present?: Yes Each Factor Represents 1 point: Obesity (BMI >25) Other Risk Factors: Yes Each Risk Factor Represents 2 Points: Age 61-74 years Each Risk Factor Represents 3 Points: Family history of DVT/PE Other congenital or acquired thrombophilia - If yes, enter type in comment: Yes Thrombosis Risk Factor Assessment Total Risk Factor Score: 6 Thrombosis Risk Factor Assessment Level: High Risk Assessment and Plan Assessment: (1) Sepsis secondary to Abdominal wall cellulitis Current Visit: Yes Status: Acute Code(s): L03.311 - CELLULITIS OF ABDOMINAL WALL SNOMED Code(s): 96839396 (2) half-way current use of anticoagulant therapy Current Visit: Yes Status: Acute Code(s): Z79.01 - HALFWAY (CURRENT) USE OF ANTICOAGULANTS SNOMED Code(s): 271272180 (3) History of pulmonary embolus (PE) Current Visit: Yes Status: Acute Code(s): Z86.711 - PERSONAL HISTORY OF PULMONARY EMBOLISM SNOMED Code(s): 359166939 (4) Morbid (severe) obesity due to excess calories Current Visit: Yes Status: Acute Code(s): E66.01 - MORBID (SEVERE) OBESITY DUE TO EXCESS CALORIES SNOMED Code(s): 384191330 (5) Essential (primary) hypertension Current Visit: Yes Status: Acute Code(s): I10 - ESSENTIAL (PRIMARY) HYPERTENSION SNOMED Code(s): 67158595 (6) nasal congestion, possibly ALLERGIES, sinus infection Plan: Continue on current medication regime ,monitoring and symptomatic treatmen t. Umbilical/abdominal/wound culture attempted to be obtained, no drainage. Of blood cultures obtained, pending. IV fluid hydration. Continue on antibiotics of vancomycin, Rocephin. Follow closely with infectious disease. Silvadene cream to abdomen. Close monitoring of renal function, WBC with Repeat labs ordered for a.m. Home meds have been reviewed and resumed accordingly. Further recommendations to follow. The impression and plan of care has been dictated as directed. : I performed a history and examination of this patient, discussed the same with the dictator. I agree with the dictator's note ,documented as a scribe. Any additional findings or plans will be noted.
[2019-09-22] MEDS: PANTOPRAZOLE 40 MG/10 ML VIAL IVP SCH (17:27)
[2019-09-22] MEDS: BENZONATATE 100 MG CAP PO PRN (17:27)
[2019-09-22] MEDS: LORATADINE 10 MG TAB PO SCH (17:28)
[2019-09-22] MEDS: RIVAROXABAN 10 MG TAB PO SCH (17:28)
[2019-09-22] MEDS: IPRATROPIUM-ALBUTEROL 3 ML NEB INHALATION SCH (21:08)
--- NOTE | 2019-09-22 22:31 | P.CON ---
Consult Note - . 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 Patient did have follow-up in the office and has been doing well until his went to [facility] or vacation. He has been home and has not been drinking well and not using Silvadene on his abdomen. He states he has cold symptoms with fever cough and congestion. He thought he may have pneumonia. He has been taking Robitussin and Mucinex without any improvement. He came into [facility] emergency center for evaluation. Influenza testing negative. UA showed trace protein. Electrolytes within normal limits, BUN 20 creatinine 1.17, blood sugar 153. Lactic acid 2.2 followed by 1.8. Initial white count 21.1. Chest x-ray was normal. Temperature 102. Patient was started on ceftriaxone, vancomycin. He is status post 1-1/2 L of IV fluid and admitted to the [facility] floor. History significant for pulmonary embolism on Xarelto. Please see the consult note dictated by nurse practitioner Mrs. Bhavana Chaparro. The patient relates that his has been out of town and since then has developed the increasing changes to his abdominal wall the marked increased swelling erythema and tenderness and some drainage from the site that he chronically picks at. He had the onset of some fever he's also had some respiratory symptoms with some cough and congestion. Robitussin was not helpful. Influenza testing is noticed was negative. Antibiotic therapy with Rocephin and vancomycin have been started. Local wound care with Silvadene to the abdominal wall. Sonya Villatoro for his cough. Await cultures to evaluate best possible and bike therapy at discharge. I agree with evaluation, assessment and plan as dictated by nurse practitioner Mrs. Bhavana Chaparro.
[2019-09-23] MEDS: SODIUM CHLORIDE 0.9% 1,000 ML IV SCH ×3 (01:55→20:48)
[2019-09-23] MEDS: VANCOMYCIN 2,500 MG in SODIUM CHLORIDE 0.9% 500 ML 500 ML IVPB SCH ×2 (04:42→16:33)
[2019-09-23 07:19] LABS: Basophils % (A) 0 %; Eosinophils # (A) 0.3 k/uL (0-0.7); Eosinophils % (A) 3 %; HCT 38.2 % (39.0-53.0); HGB 12.5 gm/dL (13.0-17.5); Lymphocytes # (A) 0.9 k/uL (1.0-4.8); Lymphocytes % (A) 8 %; MCH 31.3 pg (25.0-35.0); MCHC 32.8 g/dL (31.0-37.0); MCV 95.4 fL (80.0-100.0); Monocytes # (A) 0.5 k/uL (0-1.0); Monocytes % (A) 5 %; Neutrophils # (A) 8.5 k/uL (1.3-7.7); Neutrophils % (A) 82 %; Platelet Count 164 k/uL (150-450); RBC 4.01 m/uL (4.30-5.90); RDW 14.1 % (11.5-15.5); WBC 10.3 k/uL (3.8-10.6)
[2019-09-23] MEDS: IPRATROPIUM-ALBUTEROL 3 ML NEB INHALATION SCH ×4 (07:44→21:19)
[2019-09-23] MEDS: RIVAROXABAN 10 MG TAB PO SCH (08:09)
[2019-09-23] MEDS: ATENOLOL 25 MG TAB PO SCH (08:09)
[2019-09-23] MEDS: LORATADINE 10 MG TAB PO SCH (08:09)
[2019-09-23] MEDS: PANTOPRAZOLE 40 MG/10 ML VIAL IVP SCH (08:09)
[2019-09-23] MEDS: BENZONATATE 100 MG CAP PO PRN (08:15)
[2019-09-23 11:11] LABS: African American GFR (CKD) >90 (>60 ml/min/1.73 sqM); Anion Gap 8 mmol/L; Blood Urea Nitrogen 15 mg/dL (9-20); Calcium 7.8 mg/dL (8.4-10.2); Carbon Dioxide 22 mmol/L (22-30); Chloride 107 mmol/L (98-107); Glucose 117 mg/dL (74-99); Potassium 4.2 mmol/L (3.5-5.1); Sodium 137 mmol/L (137-145)
--- NOTE | 2019-09-23 21:03 | P.PN ---
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 Patient did have follow-up in the office and has been doing well until his went to [place] for vacation. He has been home and has not been drinking well and not using Silvadene on his abdomen. He states he has cold symptoms with fever cough and congestion. He thought he may have pneumonia. He has been taking Robitussin and Mucinex without any improvement. He came into [facility] emergency center for evaluation. Influenza testing negative. UA showed trace protein. Electrolytes within normal limits, BUN 20 creatinine 1.17, blood sugar 153. Lactic acid 2.2 followed by 1.8. Initial white count 21.1. Chest x-ray was normal. Temperature 102. Patient was started on ceftriaxone, vancomycin. He is status post 1-1/2 L of IV fluid and [facility] History significant for pulmonary embolism on Xarelto. 09/23/2019 the patient does feel better today. His pain fever chills have all improved. His appetite is improving. He is having no difficulties such as increasing shortness of breath or sputum production. Objective - Vital Signs Vital signs: Vital Signs Temp 98.8 F 09/23/19 14:59 Pulse 68 09/23/19 17:01 Resp 16 09/23/19 14:59 BP 105/60 09/23/19 14:59 Pulse Ox 95 09/23/19 14:59 Intake & Output 09/23/19 09/23/19 09/24/19 06:59 18:59 06:59 Other: # Voids 1 1 - Exam Gen.: This is a 64-year-old morbidly obese male. He is initially seen walking in the hallway and appears to be doing well. He complains of some shortness of breath with exertion which is at his baseline. HEENT: Anicteric conjunctiva are pink and moist nasal mucosa grossly intact without significant lesions, there is no thrush. Neck: The neck is supple without significant lymphadenopathy or thyromegaly. Lungs: Good bilateral air entry without significant crackles or wheezing. There is no significant bronchial sounds. There is no egophony or dullness. Heart: Regular rate and rhythm with an audible S1-S2, no S3 no S4. There is no significant murmur click or rub. Abdomen: Abdomen is soft. There is tenderness that is present from a few inches below umbilicus down through the abdominal pannus with improvement of the dense erythema and induration and tenderness. There is the small ulceration on the right lower quadrant approximately without drainage. There is no expressible purulence. There is no necrotic tissue. Slight erythema under pannus on the left. Extremities: The upper extremities have excellent pulses they are symmetric, no significant petechiae or telangiectasia. No splinter hemorrhages were noted. The lower extremities have trace bilateral edema. The peripheral pulses were 2+ and symmetric.The bilateral total knee arthroplasty scars bilaterally are well- healed Neuro: Awake alert oriented to person place and time. - Labs CBC & Chem 7: 09/23/19 06:23 09/23/19 06:23 Labs: Abnormal Lab Results - Last 24 Hours (Table) 09/23/19 09/23/19 Range/Units 06:23 06:23 RBC 4.01 L (4.30-5.90) m/uL Hgb 12.5 L (13.0-17.5) gm/dL Hct 38.2 L (39.0-53.0) % Neutrophils # 8.5 H (1.3-7.7) k/uL Lymphocytes # 0.9 L (1.0-4.8) k/uL Glucose 117 H (74-99) mg/dL Calcium 7.8 L (8.4-10.2) mg/dL Microbiology - Last 24 Hours (Table) 09/22/19 03:03 Blood Culture - Preliminary Blood No Growth after 24 hours Laboratory Results WBC 10.3 k/uL (3.8-10.6) 09/23/19 06:23 RBC 4.01 m/uL (4.30-5.90) L 09/23/19 06:23 Hgb 12.5 gm/dL (13.0-17.5) L 09/23/19 06:23 Hct 38.2 % (39.0-53.0) L 09/23/19 06:23 MCV 95.4 fL (80.0-100.0) 09/23/19 06:23 MCH 31.3 pg (25.0-35.0) 09/23/19 06:23 MCHC 32.8 g/dL (31.0-37.0) 09/23/19 06:23 RDW 14.1 % (11.5-15.5) 09/23/19 06:23 Plt Count 164 k/uL (150-450) 09/23/19 06:23 Neutrophils % 82 % 09/23/19 06:23 Lymphocytes % 8 % 09/23/19 06:23 Monocytes % 5 % 09/23/19 06:23 Eosinophils % 3 % 09/23/19 06:23 Basophils % 0 % 09/23/19 06:23 Neutrophils # 8.5 k/uL (1.3-7.7) H 09/23/19 06:23 Lymphocytes # 0.9 k/uL (1.0-4.8) L 09/23/19 06:23 Monocytes # 0.5 k/uL (0-1.0) 09/23/19 06:23 Eosinophils # 0.3 k/uL (0-0.7) 09/23/19 06:23 Basophils # 0.0 k/uL (0-0.2) 09/23/19 06:23 PT 10.5 sec (9.0-12.0) 09/22/19 03:03 INR 1.0 (<1.2) 09/22/19 03:03 APTT 23.2 sec (22.0-30.0) 09/22/19 03:03 Sodium 137 mmol/L (137-145) 09/23/19 06:23 Potassium 4.2 mmol/L (3.5-5.1) 09/23/19 06:23 Chloride 107 mmol/L (98-107) 09/23/19 06:23 Carbon Dioxide 22 mmol/L (22-30) 09/23/19 06:23 Anion Gap 8 mmol/L 09/23/19 06:23 BUN 15 mg/dL (9-20) 09/23/19 06:23 Creatinine 0.90 mg/dL (0.66-1.25) 09/23/19 06:23 Est GFR (CKD-EPI)AfAm >90 (>60 ml/min/1.73 sqM) 09/23/19 06:23 Est GFR (CKD-EPI)NonAf 89 (>60 ml/min/1.73 sqM) 09/23/19 06:23 Glucose 117 mg/dL (74-99) H 09/23/19 06:23 Lactic Ac Sepsis Rflx Y 09/22/19 03:48 Plasma Lactic Acid [place] 1.8 mmol/L (0.7-2.0) 09/22/19 07:10 Calcium 7.8 mg/dL (8.4-10.2) L 09/23/19 06:23 Total Bilirubin 0.7 mg/dL (0.2-1.3) 09/22/19 03:03 AST 38 U/L (17-59) 09/22/19 03:03 ALT 37 U/L (21-72) 09/22/19 03:03 Alkaline Phosphatase 98 U/L (38-126) 09/22/19 03:03 Troponin I 0.013 ng/mL (0.000-0.034) 09/22/19 03:03 Total Protein 7.1 g/dL (6.3-8.2) 09/22/19 03:03 Albumin 3.6 g/dL (3.5-5.0) 09/22/19 03:03 Urine Color Yellow 09/22/19 03:03 Urine Appearance Clear (Clear) 09/22/19 03:03 Urine pH 5.5 (5.0-8.0) 09/22/19 03:03 Ur Specific [place] 1.025 (1.001-1.035) 09/22/19 03:03 Urine Protein Trace (Negative) H 09/22/19 03:03 Urine Glucose (UA) Negative (Negative) 09/22/19 03:03 Urine Ketones Negative (Negative) 09/22/19 03:03 Urine Blood Negative (Negative) 09/22/19 03:03 Urine Nitrite Negative (Negative) 09/22/19 03:03 Urine Bilirubin Negative (Negative) 09/22/19 03:03 Urine Urobilinogen <2.0 mg/dL (<2.0) 09/22/19 03:03 Ur Leukocyte Esterase Negative (Negative) 09/22/19 03:03 Influenza Type A RNA Not Detected (Not Detectd) 09/22/19 03:03 Influenza Type B (PCR) Not Detected (Not Detectd) 09/22/19 03:03 Microbiology 09/22/19 03:03 Blood Blood Culture - Preliminary No Growth after 24 hours Assessment and Plan (1) Fever Current Visit: Yes Status: Acute Code(s): R50.9 - FEVER, UNSPECIFIED SNOMED Code(s): 079815343 (2) Leukocytosis Current Visit: Yes Status: Acute Code(s): D72.829 - ELEVATED WHITE BLOOD CELL COUNT, UNSPECIFIED SNOMED Code(s): 819738513 (3) Abdominal wall cellulitis Narrative/Plan: The patient relates that his has been out of town and since then has developed the increasing changes to his abdominal wall the marked increased swelling erythema and tenderness and some drainage from the site that he chronically picks at. He had the onset of some fever he's also had some respiratory symptoms with some cough and congestion. Robitussin was not helpful. Influenza testing is noticed was negative. Antibiotic therapy with Rocephin and vancomycin have been started. Local wound care with Silvadene to the abdominal wall. Sonya Villatoro for his cough. Await cultures to evaluate best possible antibiotic therapy at discharge. 09/23/2019 the patient feels better today. The pain discomfort erythema and induration abdominal wall is improved. His appetite is improved. His fever has improved. Leukocytosis is also improving. We'll continue the current antibiotic therapy with Rocephin and vancomycin while cultures are process. Topical Silvadene is also being applied which he feels is helpful and certainly except more comfortable. Ensuring that he has control of his diabetes and fluid overload is also helpful. The patient plan is still being formulated this time depending on how he does over the next day. Current Visit: No Status: Acute Code(s): L03.311 - CELLULITIS OF ABDOMINAL WALL SNOMED Code(s): 07310496 (4) History of pulmonary embolus (PE) Current Visit: No Status: Acute Code(s): Z86.711 - PERSONAL HISTORY OF PULMONARY EMBOLISM SNOMED Code(s): 072201321 (5) Morbid (severe) obesity due to excess calories Current Visit: No Status: Acute Code(s): E66.01 - MORBID (SEVERE) OBESITY DUE TO EXCESS CALORIES SNOMED Code(s): 876425486
[2019-09-24] MEDS: BENZONATATE 100 MG CAP PO PRN ×3 (01:27→20:37)
[2019-09-24] MEDS: VANCOMYCIN 2,500 MG in SODIUM CHLORIDE 0.9% 500 ML 500 ML IVPB SCH ×2 (04:46→16:34)
[2019-09-24 07:38] LABS: Basophils # (A) 0.3 k/uL (0-0.2); Basophils % (A) 3 %; Eosinophils # (A) 0.7 k/uL (0-0.7); Eosinophils % (A) 7 %; HCT 43.4 % (39.0-53.0); HGB 13.9 gm/dL (13.0-17.5); Lymphocytes # (A) 1.3 k/uL (1.0-4.8); Lymphocytes % (A) 13 %; MCH 30.4 pg (25.0-35.0); MCHC 32.1 g/dL (31.0-37.0); MCV 94.8 fL (80.0-100.0); Mean Platelet Volume 6.9; Monocytes # (A) 0.7 k/uL (0-1.0); Monocytes % (A) 7 %; Neutrophils # (A) 6.7 k/uL (1.3-7.7); Neutrophils % (A) 68 %; Platelet Count 226 k/uL (150-450); RBC 4.58 m/uL (4.30-5.90); RDW 14.2 % (11.5-15.5); WBC 9.9 k/uL (3.8-10.6)
[2019-09-24 07:57] LABS: African American GFR (CKD) >90 (>60 ml/min/1.73 sqM); Anion Gap 8 mmol/L; Blood Urea Nitrogen 14 mg/dL (9-20); Calcium 8.6 mg/dL (8.4-10.2); Carbon Dioxide 26 mmol/L (22-30); Chloride 105 mmol/L (98-107); Glucose 105 mg/dL (74-99); Potassium 4.3 mmol/L (3.5-5.1); Sodium 139 mmol/L (137-145)
[2019-09-24] MEDS: SODIUM CHLORIDE 0.9% 1,000 ML IV SCH ×2 (08:45→16:40)
[2019-09-24] MEDS: LORATADINE 10 MG TAB PO SCH (08:49)
[2019-09-24] MEDS: ATENOLOL 25 MG TAB PO SCH (08:49)
[2019-09-24] MEDS: PANTOPRAZOLE 40 MG TABLET PO SCH (08:49)
[2019-09-24] MEDS: RIVAROXABAN 10 MG TAB PO SCH (08:49)
[2019-09-24] MEDS: SILVER sulfADIAZINE Cream 400 GM 1 APPLIC APPLIC TOPICAL SCH (08:50)
[2019-09-24] MEDS: IPRATROPIUM-ALBUTEROL 3 ML NEB INHALATION SCH ×4 (08:57→21:34)
--- NOTE | 2019-09-24 13:26 | P.PN ---
Subjective Progress Note Date: 09/23/19 This is 64-year-old gentleman with history of recent abdominal wall cellulitis in May 2019, presented to the ER with complaints of fever or cough congestion 5 days accompanied by a suprapubic abdominal pain. T-max 102, WBC 21.1, chest x-ray reported nonacute. Influenza negative. Lactic acid 2.2, creatinine 1.17. EKG reporting sinus tachycardia. UA negative. Blood cultures obtained. Received IV fluids, IV antibiotics initiated. Patient reports has been away for over a week and during this time his bladder intake has been down and he has not been using his Silvadene on his abdomen. Blood sugars controlled. Anticoagulated on Xarelto for history of PE. Denies chest pain, palpitations or increased shortness of breath. Denies lightheadedness, dizziness or focal deficits. 09/23/2019 maintained on vancomycin, Rocephin, cultures pending. Topical feels much better today, good diet intake with no nausea vomiting or diarrhea. Denies abdominal pain. Blood sugars controlled. Denies chest pain, palpitations or shortness of breath. Denies cough. Ambulating in hallway, mild shortness of breath with exertion-baseline, tolerating exertion well. Denies lightheadedness, dizziness or focal deficits. Afebrile, normal WBC. Hemoglobin 12.5. Renal function improving, BUN 15, creatinine 0.9. Calcium 7.8. Objective - Vital Signs Vital signs: Vital Signs Temp 98.0 F 09/23/19 07:00 Pulse 60 09/23/19 12:03 Resp 16 09/23/19 12:03 BP 146/71 09/23/19 07:00 Pulse Ox 94 L 09/23/19 07:00 Intake & Output 09/22/19 09/23/19 09/23/19 18:59 06:59 18:59 Intake Total 932 Balance 932 Intake: IV 400 cefTRIAXone 1 gm In 400 Sodium Chloride 0.9% 50 ml @ 100 mls/hr IVPB Q24H [facility] Rx#:[id number] Oral 532 Other: # Voids 3 1 - Exam GENERAL: Well-appearing, alert and oriented 3 ,no acute distress, sitting up at side of bed. HEAD: Atraumatic, normocephalic. EYES: Pupils equal round and reactive to light, extraocular movements intact, sclera anicteric, conjunctiva are normal. ENT:nares patent, oropharynx clear without exudates. Moist mucous membranes. NECK: Normal range of motion, supple without lymphadenopathy or JVD, no thyromegaly LUNGS: Breath sounds clear to auscultation bilaterally and equal. No wheezes rales or rhonchi. HEART: Regular rate and rhythm without murmurs, rubs or gallops.S1S2 Normal ABDOMEN: Soft, normoactive bowel sounds. No guarding, no rebound. No masses appreciated. Diffuse cellulitis with minimal tenderness, warm, improving erythema abdominal wall, below umbilicus through pannus area with improving fluctuance, no drainage. EXTREMITIES: Normal range of motion, no pitting, trace edema. No clubbing or cyanosis. Positive pulses. NEUROLOGICAL: Cranial nerves II through XII grossly intact. Normal speech, normal gait. PSYCH: Normal mood, normal affect. SKIN: Warm, Dry, normal turgor, no rashes or lesions noted. - Labs CBC & Chem 7: 09/24/19 06:41 09/24/19 06:41 Labs: Abnormal Lab Results - Last 24 Hours (Table) 09/23/19 09/23/19 Range/Units 06:23 06:23 RBC 4.01 L (4.30-5.90) m/uL Hgb 12.5 L (13.0-17.5) gm/dL Hct 38.2 L (39.0-53.0) % Neutrophils # 8.5 H (1.3-7.7) k/uL Lymphocytes # 0.9 L (1.0-4.8) k/uL Glucose 117 H (74-99) mg/dL Calcium 7.8 L (8.4-10.2) mg/dL Microbiology - Last 24 Hours (Table) 09/22/19 03:03 Blood Culture - Preliminary Blood No Growth after 24 hours Assessment and Plan Assessment: (1) Sepsis secondary to Abdominal wall cellulitis Current Visit: Yes Status: Acute Code(s): L03.311 - CELLULITIS OF ABDOMINAL WALL SNOMED Code(s): 92191319 (2) [facility] current use of anticoagulant therapy Current Visit: Yes Status: Acute Code(s): Z79.01 - [facility] (CURRENT) USE OF ANTICOAGULANTS SNOMED Code(s): 403213737 (3) History of pulmonary embolus (PE) Current Visit: Yes Status: Acute Code(s): Z86.711 - PERSONAL HISTORY OF PULMONARY EMBOLISM SNOMED Code(s): 012437904 (4) Morbid (severe) obesity due to excess calories Current Visit: Yes Status: Acute Code(s): E66.01 - MORBID (SEVERE) OBESITY DUE TO EXCESS CALORIES SNOMED Code(s): 870537043 (5) Essential (primary) hypertension Current Visit: Yes Status: Acute Code(s): I10 - ESSENTIAL (PRIMARY) HYPERT ENSION SNOMED Code(s): 95714924 (6) nasal congestion, possibly ALLERGIES, sinus infection Plan: Continue on current medication regime ,monitoring and symptomatic [place] atment. Continue on antibiotics of vancomycin, Rocephin/wound care as per infectious disease. Close monitoring of blood sugars, renal function. Repeat labs ordered for a.m. The impression and plan of care has been dictated as directed. : I performed a history and examination of this patient, discussed the same with the dictator. I agree with the dictator's note ,documented as a scribe. Any additional findings or plans will be noted.
[2019-09-24] MEDS ORDERED: VANCOMYCIN TROUGH DUE 1 EACH MISC MISCELLANE ONE (15:00)
--- NOTE | 2019-09-24 16:33 | P.PN ---
Subjective Progress Note Date: 09/24/19 This is 64-year-old gentleman with history of recent abdominal wall cellulitis in May 2019, presented to the ER with complaints of fever or cough congestion 5 days accompanied by a suprapubic abdominal pain. T-max 102, WBC 21.1, chest x-ray reported nonacute. Influenza negative. Lactic acid 2.2, creatinine 1.17. EKG reporting sinus tachycardia. UA negative. Blood cultures obtained. Received IV fluids, IV antibiotics initiated. Patient reports has been away for over a week and during this time his bladder intake has been down and he has not been using his Silvadene on his abdomen. Blood sugars controlled. Anticoagulated on Xarelto for history of PE. Denies chest pain, palpitations or increased shortness of breath. Denies lightheadedness, dizziness or focal deficits. 09/23/2019 maintained on vancomycin, Rocephin, cultures pending. Topical feels much better today, good diet intake with no nausea vomiting or diarrhea. Denies abdominal pain. Blood sugars controlled. Denies chest pain, palpitations or shortness of breath. Denies cough. Ambulating in hallway, mild shortness of breath with exertion-baseline, tolerating exertion well. Denies lightheadedness, dizziness or focal deficits. Afebrile, normal WBC. Hemoglobin 12.5. Renal function improving, BUN 15, creatinine 0.9. Calcium 7.8. 09/24/2019 continues on IV antibiotics as per infectious disease. Doing well, afebrile, normal WBC. Hemoglobin 13.9. Denies lightheadedness, dizziness or focal deficits. Good intake, no nausea vomiting or diarrhea. Blood sugars controlled. Reports no pain. Wound cultures obtained from right lower quadrant prior wound site, scabbed scratched off. Objective - Vital Signs Vital signs: Vital Signs Temp 98.3 F 09/24/19 12:47 Pulse 97 09/24/19 12:47 Resp 28 H 09/24/19 12:47 BP 156/84 09/24/19 12:47 Pulse Ox 95 09/24/19 07:00 Intake & Output 09/23/19 09/24/19 09/24/19 18:59 06:59 18:59 Intake Total 240 Balance 240 Intake: Oral 240 Other: Voiding Method Toilet # Voids 1 1 - Exam GENERAL: alert and oriented 3 ,no acute distress, sitting up at side of bed. HEAD: Atraumatic, normocephalic. EYES: Pupils equal round and reactive to light, extraocular movements intact, sclera anicteric, conjunctiva are normal. ENT:nares patent, oropharynx clear without exudates. Moist mucous membranes. NECK: Normal range of motion, supple without lymphadenopathy or JVD, no thyromegaly LUNGS: Breath sounds clear to auscultation bilaterally, No wheezes rales or rhonchi. HEART: Regular rate and rhythm without murmurs, rubs or gallops.S1S2 Normal ABDOMEN: Soft, normoactive bowel sounds. No guarding, no rebound. No masses appreciated. Improving Diffuse cellulitis, erythema, fluctuance of abdominal wall, below umbilicus through pannus area. Minimal tenderness. EXTREMITIES: Normal range of motion, no pitting, trace edema. No clubbing or cyanosis. Positive pulses. NEUROLOGICAL: Cranial nerves II through XII grossly intact. Normal speech, normal gait. PSYCH: Normal mood, normal affect. SKIN: Warm, Dry, normal turgor, no rashes or lesions noted. Microbiology 09/22/19 03:03 Blood Blood Culture - Preliminary No Growth after 48 hours - Labs CBC & Chem 7: 09/24/19 06:41 09/24/19 06:41 Labs: Abnormal Lab Results - Last 24 Hours (Table) 09/24/19 09/24/19 Range/Units 06:41 06:41 Basophils # 0.3 H (0-0.2) k/uL Glucose 105 H (74-99) mg/dL Microbiology - Last 24 Hours (Table) 09/22/19 03:03 Blood Culture - Preliminary Blood No Growth after 48 hours Assessment and Plan Assessment: (1) Sepsis secondary to Abdominal wall cellulitis Current Visit: Yes Status: Acute Code(s): L03.311 - CELLULITIS OF ABDOMINAL WALL SNOMED Code(s): 08783064 (2) [facility] current use of anticoagulant therapy Current Visit: Yes Status: Acute Code(s): Z79.01 - LONG-TERM (CURRENT) USE OF ANTICOAGULANTS SNOMED Code(s): 589521224 (3) History of pulmonary embolus (PE) Current Visit: Yes Status: Acute Code(s): Z86.711 - PERSONAL HISTORY OF PULMONARY EMBOLISM SNOMED Code(s): 162808170 (4) Morbid (severe) obesity due to excess calories Current Visit: Yes Status: Acute Code(s): E66.01 - MORBID (SEVERE) OBESITY DUE TO EXCESS CALORIES SNOMED Code(s): 499623993 (5) Essential (primary) hypertension Current Visit: Yes Status: Acute Code(s): I10 - ESSENTIAL (PRIMARY) HYPERTENSION SNOMED Code(s): 85705705 (6) nasal congestion, possibly ALLERGIES, sinus infection Plan: Continue on current medication regime ,monitoring and symptomatic treatment. Wound cultures obtained. Maintain IV antibiotics of vancomycin, Rocephin/wound care as per infectious disease. Discharge planning in progress in the next 24-48 hours ,pending infectious disease clearance. The impression and plan of care has been dictated as directed. : I performed a history and examination of this patient, discussed the same with the dictator. I agree with the dictator's note ,documented as a scribe. Any additional findings or plans will be noted.
[2019-09-25] MEDS: VANCOMYCIN 2,500 MG in SODIUM CHLORIDE 0.9% 500 ML 500 ML IVPB SCH (03:44)
[2019-09-25] MEDS: SODIUM CHLORIDE 0.9% 1,000 ML IV SCH (03:50)
[2019-09-25 07:46] LABS: African American GFR (CKD) >90 (>60 ml/min/1.73 sqM)
[2019-09-25] MEDS: ATENOLOL 25 MG TAB PO SCH (07:51)
[2019-09-25] MEDS: RIVAROXABAN 10 MG TAB PO SCH (07:52)
[2019-09-25] MEDS: LORATADINE 10 MG TAB PO SCH (07:52)
[2019-09-25] MEDS: BENZONATATE 100 MG CAP PO PRN (07:52)
[2019-09-25] MEDS: PANTOPRAZOLE 40 MG TABLET PO SCH (07:52)
[2019-09-25] MEDS: SILVER sulfADIAZINE Cream 400 GM 1 APPLIC APPLIC TOPICAL SCH (07:52)
[2019-09-25] MEDS: IPRATROPIUM-ALBUTEROL 3 ML NEB INHALATION SCH ×3 (08:45→16:37)
--- NOTE | 2019-09-25 12:20 | P.DS ---
Providers Date of admission: 09/23/19 09:33 Expected date of discharge: 09/25/19 Attending physician: Gordon Lincoln Consults: 09/22/19 04:11 Consult Physician Stat Consulting Provider: Jerod Jean Reason/Comments: cellulitis Do you want consulting provider notified?: Yes, Notify in am Primary care physician: Gordon Lincoln [facility] Course: Final Diagnoses: (1) Sepsis secondary to Abdominal wall cellulitis Current Visit: Yes Status: Acute Code(s): L03.311 - CELLULITIS OF ABDOMINAL WALL SNOMED Code(s): 75493875 (2) [facility] current use of anticoagulant therapy Current Visit: Yes Status: Acute Code(s): Z79.01 - LONGTERM (CURRENT) USE OF ANTICOAGULANTS SNOMED Code(s): 435599994 (3) History of pulmonary embolus (PE) Current Visit: Yes Status: Acute Code(s): Z86.711 - PERSONAL HISTORY OF PULMONARY EMBOLISM SNOMED Code(s): 802142887 (4) Morbid (severe) obesity due to excess calories Current Visit: Yes Status: Acute Code(s): E66.01 - MORBID (SEVERE) OBESITY DUE TO EXCESS CALORIES SNOMED Code(s): 135232544 (5) Essential (primary) hypertension Current Visit: Yes Status: Acute Code(s): I10 - ESSENTIAL (PRIMARY) HYPERTENSION SNOMED Code(s): 87982142 (6) nasal congestion, possibly ALLERGIES, improving Hospital course:This is 64-year-old gentleman with history of recent abdominal wall cellulitis in May 2019, presented to the ER with complaints of fever or cough congestion 5 days accompanied by a suprapubic abdominal pain. T-max 102, WBC 21.1, chest x-ray reported nonacute. Influenza negative. Lactic acid 2.2, creatinine 1.17. EKG reporting sinus tachycardia. UA negative. Blood cultures obtained. Received IV fluids, IV antibiotics initiated. Patient reports has been away for over a week and during this time his bladder intake has been down and he has not been using his Silvadene on his abdomen. Blood sugars controlled. Anticoagulated on Xarelto for history of PE. Denies chest pain, palpitations or increased shortness of breath. Denies lightheadedness, dizziness or focal deficits. 09/23/2019 maintained on vancomycin, Rocephin, cultures pending. Topical feels much better today, good diet intake with no nausea vomiting or diarrhea. Denies abdominal pain. Blood sugars controlled. Denies chest pain, palpitations or shortness of breath. Denies cough. Ambulating in hallway, mild shortness of breath with exertion-baseline, tolerating exertion well. Denies lightheadedness, dizziness or focal deficits. Afebrile, normal WBC. Hemoglobin 12.5. Renal function improving, BUN 15, creatinine 0.9. Calcium 7.8. 09/24/2019 continues on IV antibiotics as per infectious disease. Doing well, afebrile, normal WBC. Hemoglobin 13.9. Denies lightheadedness, dizziness or focal deficits. Good intake, no nausea vomiting or diarrhea. Blood sugars controlled. Reports no pain. Wound cultures obtained from right lower quadrant prior wound site, scabbed scratched off. Significant clinical improvement. Cleared by infectious disease for discharge. Final wound culture results to be faxed to both Dr. Jean-infectious disease and PCP Dr. Lincoln. Cleared by infectious disease for discharge. Patient is being discharged home in a stable condition with guarded prognosis. Exam GENERAL: alert and oriented 3 ,no acute distress, sitting up in chair. LUNGS: Breath sounds clear to auscultation bilaterally, No wheezes rales or rhonchi. HEART: Regular rate and rhythm without murmurs, rubs or gallops.S1S2 Normal ABDOMEN: Soft, normoactive bowel sounds. No guarding, no rebound. No masses appreciated. Significant improvement in cellulitis, no tenderness. NEUROLOGICAL: No focal deficits. The impression and plan of care has been dictated as directed. : I performed a history and examination of this patient, discussed the same with the dictator. I agree with the dictator's note ,documented as a scribe. Any additional findings or plans will be noted. Patient Condition at Discharge: Stable Plan - Discharge Summary Discharge Rx Participant: Yes New Discharge Prescriptions: New Amoxic-Pot Clav 875-125Mg [Augmentin 875-125] 1 tab PO Q12HR #20 tablet Loratadine [Claritin] 10 mg PO DAILY tab Acetaminophen Tab [Tylenol] 650 mg PO Q6HR PRN tab PRN Reason: Mild Pain Or Fever > 100.5 Continue Hydrochlorothiazide 12.5 mg PO DAILY Atenolol [Tenormin] 25 mg PO DAILY Albuterol Sulfate [Proair Hfa] 1 - 2 puff INHALATION RT-Q6H PRN PRN Reason: Shortness Of Breath Albuterol Nebulized [Ventolin Nebulized] 2.5 mg INHALATION RT-Q4H PRN PRN Reason: Dyspnea Rivaroxaban [Xarelto] 10 mg PO DAILY Multivitamin [Multivitamins Adult Gummies] 1 tab PO DAILY SILVER sulfADIAZINE Cream [Silvadene 1% Cream] 1 applic TOPICAL TID #400 gm Discharge Medication List Albuterol Nebulized [Ventolin Nebulized] 2.5 mg INHALATION RT-Q4H PRN 08/21/18 [History] Albuterol Sulfate [Proair Hfa] 1 - 2 puff INHALATION RT-Q6H PRN 08/21/18 [History] Atenolol [Tenormin] 25 mg PO DAILY 08/21/18 [History] Hydrochlorothiazide 12.5 mg PO DAILY 08/21/18 [History] Multivitamin [Multivitamins Adult Gummies] 1 tab PO DAILY 06/07/19 [History] Rivaroxaban [Xarelto] 10 mg PO DAILY 06/07/19 [History] SILVER sulfADIAZINE Cream [Silvadene 1% Cream] 1 applic TOPICAL TID #400 gm 06/11/19 [Rx] Acetaminophen Tab [Tylenol] 650 mg PO Q6HR PRN tab 09/25/19 [Rx] Amoxic-Pot Clav 875-125Mg [Augmentin 875-125] 1 tab PO Q12HR #20 tablet 09/25/19 [Rx] Loratadine [Claritin] 10 mg PO DAILY tab 09/25/19 [Rx] Follow up Appointment(s)/Referral(s): Gordon Lincoln MD [Primary Care Provider] - 09/30/19 8:30 am Activity/Diet/Wound Care/Special Instructions: Pending ID clearance and correction antibiotic. Final wound culture results to be faxed to PCP and Dr. Jean/ ID.
[2019-09-25 13:49] VITALS: BP 131/76; PULSE 54; RESP 16; TEMP 97.9
[2019-09-25] MEDS ORDERED: VANCOMYCIN 2,250 MG in SODIUM CHLORIDE 0.9% 500 ML 500 ML IVPB SCH (18:00)
== END 2019-09-25 17:10 | disposition home or self-care (01) | DRG 872 ==
LOC: EC 02:01 → 4SSUR 04:11 → OBSVTOIN 09-23 09:33
PROVIDERS: ADMIT Family Medicine; ATTEND Family Medicine
DX: A41.9 Sepsis, unspecified organism (principal); L03.311 Cellulitis of abdominal wall; Z68.43 Body mass index [BMI] 50.0-59.9, adult; E66.01 Morbid (severe) obesity due to excess calories; I10 Essential (primary) hypertension; K21.9 Gastro-esophageal reflux disease without esophagitis; K57.90 Diverticulosis of intestine, part unspecified, without perforation or abscess without bleeding; J30.2 Other seasonal allergic rhinitis; J30.9 Allergic rhinitis, unspecified; Z79.01 Long term (current) use of anticoagulants; Z79.899 Other long term (current) drug therapy; Z86.711 Personal history of pulmonary embolism; Z87.09 Personal history of other diseases of the respiratory system; Z96.653 Presence of artificial knee joint, bilateral; Z87.01 Personal history of pneumonia (recurrent); Z91.09 Other allergy status, other than to drugs and biological substances; Z90.49 Acquired absence of other specified parts of digestive tract; Z80.52 Family history of malignant neoplasm of bladder; Z82.5 Family history of asthma and other chronic lower respiratory diseases; Z80.9 Family history of malignant neoplasm, unspecified; Z83.79 Family history of other diseases of the digestive system
CPT/HCPCS: 36415; 71046; 80048; 80053; 80202; 81003; 82565; 83605; 84484; 85025; 85610; 85730; 87040; 87070; 87075; 87205; 87502; 93005; 94640; 96365; 96366; 96367; 99285

== ENCOUNTER 2020-08-13 23:00 | Observation (INO) | payer MEDICARE, BC ==
[2020-08-13] MEDS ORDERED: ACETAMINOPHEN TAB 325 MG TAB PO STA (23:47)
[2020-08-13] MEDS ORDERED: VANCOMYCIN IV PER PHARMACY 1 EACH MISC MISCELLANE PRN (23:47)
[2020-08-13] MEDS ORDERED: IBUPROFEN 600 MG TAB PO STA (23:47)
[2020-08-14 00:18] LABS: Basophils % (A) 0 %; Eosinophils # (A) 0.5 k/uL (0-0.7); Eosinophils % (A) 3 %; HGB 15.5 gm/dL (13.0-17.5); Lymphocytes # (A) 0.7 k/uL (1.0-4.8); Lymphocytes % (A) 4 %; MCH 29.8 pg (25.0-35.0); MCHC 31.7 g/dL (31.0-37.0); MCV 94.1 fL (80.0-100.0); Mean Platelet Volume 7.4; Monocytes # (A) 0.5 k/uL (0-1.0); Monocytes % (A) 3 %; Neutrophils # (A) 13.7 k/uL (1.3-7.7); Neutrophils % (A) 88 %; Platelet Count 185 k/uL (150-450); RBC 5.21 m/uL (4.30-5.90); RDW 14.1 % (11.5-15.5); WBC 15.6 k/uL (3.8-10.6)
[2020-08-14] MEDS: SODIUM CHLORIDE 0.9% 1,000 ML IV SCH ×3 (00:24→15:37)
[2020-08-14] MEDS: SODIUM CHLORIDE 0.9% 500 ML 500 ML IV SCH ×2 (00:30→01:10)
[2020-08-14 00:35] LABS: ALT 29 U/L (4-49); AST 43 U/L (17-59); African American GFR (CKD) >90 (>60 ml/min/1.73 sqM); Alkaline Phosphatase 95 U/L (38-126); Anion Gap 8 mmol/L; Blood Urea Nitrogen 22 mg/dL (9-20); Calcium 8.9 mg/dL (8.4-10.2); Carbon Dioxide 27 mmol/L (22-30); Chloride 101 mmol/L (98-107); Glucose 156 mg/dL (74-99); Non-African American GFR(CKD) 82 (>60 ml/min/1.73 sqM); Sodium 136 mmol/L (137-145); Total Bilirubin 1.3 mg/dL (0.2-1.3); Total Protein 7.1 g/dL (6.3-8.2)
[2020-08-14 00:37] LABS: Potassium 4.6 mmol/L (3.5-5.1)
--- NOTE | 2020-08-14 00:40 | ED ---
General Adult HPI - General Chief complaint: Fever Stated complaint: Cellulitis lower abdomen Time Seen by Provider: 08/13/20 23:23 Source: patient, RN notes reviewed, old records reviewed Mode of arrival: ambulatory Limitations: no limitations - History of Present Illness Initial comments: 65-year-old male patient with past medical history of recurrent abdominal wall cellulitis presents to ED for evaluation of cellulitis. Patient reports that earlier today he noticed there is some redness on his anterior hand mass. Patient began running a fever. Denies any pain. Denies any cough congestion or any other complaints at this time. Systemic: Pt denies fatigue, rash. Pt denies weakness, night sweats, weight loss. Neuro: Pt denies headache, visual disturbances, syncope or pre-syncope. HEENT: Pt denies ocular discharge or irritation, otalgia, rhinorrhea, pharyngitis or notable lymphadenopathy. Cardiopulmonary: Pt denies chest pain, SOB, heart palpitations, dyspnea on exertion. Abdominal/GI: Pt denies abdominal pain, n/v/d. : Pt denies dysuria, burning w/ urination, frequency/urgency. Denies new onset urinary or bowel incontinence. MSK: Pt denies myalgia, loss of strength or function in extremities. Neuro: Pt denies new onset weakness, paresthesias. - Related Data Home Medications Medication Instructions Recorded Confirmed Albuterol Nebulized [Ventolin 2.5 mg INHALATION RT-Q4H PRN 08/21/18 09/22/19 Nebulized] Albuterol Sulfate [Proair Hfa] 1 - 2 puff INHALATION RT-Q6H PRN 08/21/18 09/22/19 Hydrochlorothiazide 12.5 mg PO DAILY 08/21/18 09/22/19 [hydroCHLOROthiazide] atenoloL [Tenormin] 25 mg PO DAILY 08/21/18 09/22/19 Multivitamin [Multivitamins Adult 1 tab PO DAILY 06/07/19 09/22/19 Gummies] Rivaroxaban [Xarelto] 10 mg PO DAILY 06/07/19 09/22/19 Previous Rx's Medication Instructions Recorded SILVER sulfADIAZINE Cream 1 applic TOPICAL TID #400 gm 06/11/19 [Silvadene 1% Cream] Acetaminophen Tab [Tylenol] 650 mg PO Q6HR PRN tab 09/25/19 Amoxic-Pot Clav 875-125Mg 1 tab PO Q12HR #20 tablet 09/25/19 [Augmentin 875-125] Loratadine [Claritin] 10 mg PO DAILY tab 09/25/19 Allergies Allergy/AdvReac Type Severity Reaction Status Date / Time cat dander Allergy Anaphylaxis Verified 08/13/20 23:12 Review of Systems ROS Statement: Those systems with pertinent positive or pertinent negative responses have been documented in the HPI. ROS Other: All systems not noted in ROS Statement are negative. Past Medical History Past Medical History: Asthma, GERD/Reflux, Hypertension, Pneumonia, Pulmonary Embolus (PE) Additional Past Medical History / Comment(s): diverticulosis, asthma as a child, cellulitis of abdominal wall History of Any Multi-Drug Resistant Organisms: None Reported Past Surgical History: Appendectomy, Orthopedic Surgery Additional Past Surgical History / Comment(s): rt rotator cuff, rt knee repair of torn meniscus, bilat knee replacement 2019 Past Anesthesia/Blood Transfusion Reactions: No Reported Reaction Past Psychological History: No Psychological Hx Reported Smoking Status: Never smoker Past Alcohol Use History: Occasional Past Drug Use History: None Reported - Past Family History Father Family Medical History: Cancer Additional Family Medical History / Comment(s): bladder cancer with metastasis, diverticulosis Mother Family Medical History: Asthma Brother(s) Additional Family Medical History / Comment(s): scleroderma General Exam - General Exam Comments Initial Comments: Constitutional: NAD, AOX3, Pt has pleasant affect. HEENT: NC/AT, trachea midline, neck supple, no lymphadenopathy. External ears appear normal, without discharge. Mucous membranes moist. Eyes PERRLA, EOM intact. There is no scleral icterus. No pallor noted. Cardiopulmonary: RRR, no murmurs, rubs or gallops, no JVD noted. Lungs CTAB in anterior and posterior ye. No peripheral edema. Abdominal exam: Abdomen soft and non-distended. Abdomen non-tender to palpation in all 4 quadrants. Bowel sounds active in LLQ. No hepatosplenomegaly. No ecchymosis. Cellulitis noted lower anterior abdominal region. Neuro: CN II-XII grossly intact. No nuchal rigidity. No raccon eyes, no varner sign, no hemotympanum. No cervical spinal tenderness. MSK: No posterior calf tenderness bilaterally, homans sign negative bilaterally. Posterior tibialis and radial pulse +2 bilaterally. Sensation intact in upper and lower extremities. Limitations: no limitations Course Vital Signs 08/13/20 08/14/20 08/14/20 23:07 01:00 02:07 Temperature 101.3 F H 101.7 F H 100.6 F H Pulse Rate 100 95 81 Respiratory 21 18 18 Rate Blood Pressure 147/74 128/61 135/60 O2 Sat by Pulse 94 L 96 96 Oximetry Medical Decision Making - Medical Decision Making 65-year-old male patient presents to ED for evaluation of fever, cellulitis. Patient ultimately displayed fever patient administered antipyretic. Physical exam does display cellulitis. Laboratory investigations revealed leukocytosis, mildly elevated lactic acid. Patient administered IV fluids and antibiotics and be admitted for further evaluation. Case discussed with Dr. Sam. - Lab Data Result diagrams: 08/14/20 00:08 08/14/20 00:08 Lab Results 08/14/20 08/14/20 08/14/20 Range/Units 00:08 00:08 00:08 WBC 15.6 H (3.8-10.6) k/uL RBC 5.21 (4.30-5.90) m/uL Hgb 15.5 (13.0-17.5) gm/dL Hct 49.0 (39.0-53.0) % MCV 94.1 (80.0-100.0) fL MCH 29.8 (25.0-35.0) pg MCHC 31.7 (31.0-37.0) g/dL RDW 14.1 (11.5-15.5) % Plt Count 185 (150-450) k/uL Neutrophils % 88 % Lymphocytes % 4 % Monocytes % 3 % Eosinophils % 3 % Basophils % 0 % Neutrophils # 13.7 H (1.3-7.7) k/uL Lymphocytes # 0.7 L (1.0-4.8) k/uL Monocytes # 0.5 (0-1.0) k/uL Eosinophils # 0.5 (0-0.7) k/uL Basophils # 0.0 (0-0.2) k/uL PT 11.2 (9.0-12.0) sec INR 1.1 (<1.2) APTT 22.5 (22.0-30.0) sec Sodium 136 L (137-145) mmol/L Potassium 4.6 (3.5-5.1) mmol/L Chloride 101 (98-107) mmol/L Carbon Dioxide 27 (22-30) mmol/L Anion Gap 8 mmol/L BUN 22 H (9-20) mg/dL Creatinine 0.96 (0.66-1.25) mg/dL Est GFR (CKD-EPI)AfAm >90 (>60 ml/min/1.73 sqM) Est GFR (CKD-EPI)NonAf 82 (>60 ml/min/1.73 sqM) Glucose 156 H (74-99) mg/dL Plasma Lactic Acid [place] (0.7-2.0) mmol/L Calcium 8.9 (8.4-10.2) mg/dL Total Bilirubin 1.3 (0.2-1.3) mg/dL AST 43 (17-59) U/L ALT 29 (4-49) U/L Alkaline Phosphatase 95 (38-126) U/L Total Protein 7.1 (6.3-8.2) g/dL Albumin 4.0 (3.5-5.0) g/dL 08/14/20 Range/Units 00:08 WBC (3.8-10.6) k/uL RBC (4.30-5.90) m/uL Hgb (13.0-17.5) gm/dL Hct (39.0-53.0) % MCV (80.0-100.0) fL MCH (25.0-35.0) pg MCHC (31.0-37.0) g/dL RDW (11.5-15.5) % Plt Count (150-450) k/uL Neutrophils % % Lymphocytes % % Monocytes % % Eosinophils % % Basophils % % Neutrophils # (1.3-7.7) k/uL Lymphocytes # (1.0-4.8) k/uL Monocytes # (0-1.0) k/uL Eosinophils # (0-0.7) k/uL Basophils # (0-0.2) k/uL PT (9.0-12.0) sec INR (<1.2) APTT (22.0-30.0) sec Sodium (137-145) mmol/L Potassium (3.5-5.1) mmol/L Chloride (98-107) mmol/L Carbon Dioxide (22-30) mmol/L Anion Gap mmol/L BUN (9-20) mg/dL Creatinine (0.66-1.25) mg/dL Est GFR (CKD-EPI)AfAm (>60 ml/min/1.73 sqM) Est GFR (CKD-EPI)NonAf (>60 ml/min/1.73 sqM) Glucose (74-99) mg/dL Plasma Lactic Acid [place] 2.4 H* (0.7-2.0) mmol/L Calcium (8.4-10.2) mg/dL Total Bilirubin (0.2-1.3) mg/dL AST (17-59) U/L ALT (4-49) U/L Alkaline Phosphatase (38-126) U/L Total Protein (6.3-8.2) g/dL Albumin (3.5-5.0) g/dL - EKG Data -: EKG Interpreted by Me (and Dr. Sam ) EKG Comments: The chest. Many to count. Full 160, QRS 94, QT/QTC 352/435. NSR, low voltage QRS, no concern for acute ischemia at this time. Disposition Clinical Impression: Cellulitis Disposition: ADMITTED IP TO THIS HOSP Condition: Serious Is patient prescribed a controlled substance at d/c from ED?: No
[2020-08-14 01:00] LABS: INR 1.1 (<1.2); Partial Thromboplastin Time 22.5 sec (22.0-30.0); Prothrombin Time 11.2 sec (9.0-12.0)
[2020-08-14] MEDS ORDERED: VANCOMYCIN 2,500 MG in SODIUM CHLORIDE 0.9% 500 ML 500 ML IVPB ONE (01:00)
[2020-08-14 01:06] LABS: Appearance,Urine Clear (Clear); Bilirubin,Urine Negative (Negative); Blood,Urine Negative (Negative); Color,Urine Yellow; Glucose,Urine (UA) Negative (Negative); Ketones,Urine Negative (Negative); Leukocyte Esterase,Urine Trace (Negative); Mucus,Urine Rare /hpf; Nitrite,Urine Negative (Negative); Protein,Urine Negative (Negative); RBC,Urine 1 /hpf (0-5); Specific Gravity,Urine 1.019 (1.001-1.035); Squamous Epithelial Cell,Urine 1 /hpf (0-4); Urobilinogen,Urine <2.0 mg/dL (<2.0); WBC,Urine 10 /hpf (0-5)
[2020-08-14] MEDS ORDERED: ACETAMINOPHEN TAB 325 MG TAB PO STA (01:14)
[2020-08-14] MEDS ORDERED: IBUPROFEN 400 MG TAB PO PRN ×2 (01:22→01:49)
[2020-08-14] MEDS ORDERED: NALOXONE 0.4 MG/ML 1 ML VIAL IV PRN (01:22)
[2020-08-14] MEDS ORDERED: ACETAMINOPHEN TAB 325 MG TAB PO PRN (01:22)
[2020-08-14] MEDS ORDERED: NON FORMULARY DRUG (Omega-3 Fatty Acids/Fish Oil [Fish Oil 1,000 Mg Softgel] 1 EACH Capsul PO SCH (09:15)
[2020-08-14] MEDS: hydroCHLOROthiazide 12.5 MG CAP PO SCH (09:26)
[2020-08-14] MEDS: RIVAROXABAN 10 MG TAB PO SCH (09:26)
[2020-08-14] MEDS: MULTIVITAMINS, THERA 1 EACH TAB PO SCH (09:26)
[2020-08-14] MEDS: atenoloL 25 MG TAB PO SCH (09:26)
--- NOTE | 2020-08-14 10:17 | P.HPIM ---
History of Present Illness H&P Date: 08/14/20 Chief Complaint: Fever, cellulitis lower abdomen 65-year-old male patient well known to the practice. Has history of recurrent abdominal wall cellulitis with the last episode approximately 4 months ago and was treated on an outpatient basis. Presented to the emergency room in ambulatory status is his noticed some redness on the anterior side of his abdomen and bilateral groin folds. Denies any pain, cough or congestion, chest pain pressure, nausea vomiting or diarrhea. He did mention he began running a fever prior coming in the emergency room. His past medical history of asthma, GERD reflux, hypertension, pneumonia, pulmonary embolus. He is also noted for history diverticulosis, cellulitis of abdominal wall, appendectomy, right rotator cuff repair, right knee repair of torn meniscus, bilateral knee replacement 2019. Review of Systems Constitutional: Reports chills, Reports fever Ears, nose, mouth and throat: Reports as per HPI Cardiovascular: Reports as per HPI Respiratory: Reports as per HPI Gastrointestinal: Reports as per HPI Genitourinary: Reports as per HPI Musculoskeletal: Reports as per HPI Integumentary: Reports as per HPI Neurological: Reports as per HPI Psychiatric: Reports as per HPI Endocrine: Reports as per HPI Hematologic/Lymphatic: Reports as per HPI Allergic/Immunologic: Reports as per HPI Past Medical History Past Medical History: Asthma, GERD/Reflux, Hypertension, Pneumonia, Pulmonary Embolus (PE) Additional Past Medical History / Comment(s): diverticulosis, asthma as a child, cellulitis of abdominal wall History of Any Multi-Drug Resistant Organisms: None Reported Past Surgical History: Appendectomy, Orthopedic Surgery Additional Past Surgical History / Comment(s): rt rotator cuff, rt knee repair of torn meniscus, bilat knee replacement 2019 Past Anesthesia/Blood Transfusion Reactions: No Reported Reaction Past Psychological History: No Psychological Hx Reported Smoking Status: Never smoker Past Alcohol Use History: Occasional Past Drug Use History: None Reported - Past Family History Father Family Medical History: Cancer Additional Family Medical History / Comment(s): bladder cancer with metastasis, diverticulosis Mother Family Medical History: Asthma Brother(s) Additional Family Medical History / Comment(s): scleroderma Medications and Allergies Home Medications Medication Instructions Recorded Confirmed Type Hydrochlorothiazide 12.5 mg PO DAILY 08/21/18 08/14/20 History [hydroCHLOROthiazide] atenoloL [Tenormin] 25 mg PO DAILY 08/21/18 08/14/20 History Multivitamin [Multivitamins Adult 1 tab PO DAILY 06/07/19 08/14/20 History Gummies] Rivaroxaban [Xarelto] 10 mg PO DAILY 06/07/19 08/14/20 History [place]-3 Fatty Acids/Fish Oil [Fish 1 cap PO DAILY 08/14/20 08/14/20 History Oil 1,000 mg Softgel] Allergies Allergy/AdvReac Type Severity Reaction Status Date / Time cat dander Allergy Anaphylaxis Verified 08/14/20 08:42 Physical Exam Vitals: Vital Signs Temp Pulse Pulse Resp BP BP Pulse Ox 08/14/20 07:00 97.7 F 62 18 128/82 96 08/14/20 02:15 98.8 F 83 20 129/70 96 08/14/20 02:07 100.6 F H 81 18 135/60 96 08/14/20 01:00 101.7 F H 95 18 128/61 96 08/13/20 23:07 101.3 F H 100 21 147/74 94 L Intake and Output 08/13/20 08/14/20 08/14/20 22:59 06:59 14:59 Intake Total 100 Balance 100 Intake: Oral 100 Other: Voiding Method Toilet # Voids 1 Weight 181.437 kg GENERAL: Morbidly obese, Well-appearing, well-nourished and in no acute distress. HEAD: Atraumatic, normocephalic. EYES: Pupils equal round and reactive to light, extraocular movements intact, sc sima anicteric, conjunctiva are normal. ENT:nares patent, oropharynx clear without exudates. Moist mucous membranes. NECK: Normal range of motion, supple without lymphadenopathy or JVD, no thyromegaly LUNGS: Breath sounds clear to auscultation bilaterally and equal. No wheezes rales or rhonchi. HEART: Regular rate and rhythm without murmurs, rubs or gallops.S1S2 Normal ABDOMEN: Soft, nontender, normoactive bowel sounds. No guarding, no rebound. No masses appreciated. EXTREMITIES: Normal range of motion, no pitting or edema. No clubbing or cyanosis. NEUROLOGICAL: Cranial nerves II through XII grossly intact. Normal speech, normal gait. PSYCH: Normal mood, normal affect. SKIN: Warm, Dry, normal turgor, or lesions noted. Area of excoriation and erythema noted under pannus, and in bilateral groin folds. Results CBC & Chem 7: 08/14/20 00:08 08/14/20 00:08 Labs: Abnormal Lab Results - Last 24 Hours (Table) 08/14/20 08/14/20 08/14/20 Range/Units 00:08 00:08 00:08 WBC 15.6 H (3.8-10.6) k/uL Neutrophils # 13.7 H (1.3-7.7) k/uL Lymphocytes # 0.7 L (1.0-4.8) k/uL Sodium 136 L (137-145) mmol/L BUN 22 H (9-20) mg/dL Glucose 156 H (74-99) mg/dL Plasma Lactic Acid [place] 2.4 H* (0.7-2.0) mmol/L Ur Leukocyte Esterase (Negative) Urine WBC (0-5) /hpf Urine Mucus (None) /hpf 08/14/20 Range/Units 00:37 WBC (3.8-10.6) k/uL Neutrophils # (1.3-7.7) k/uL Lymphocytes # (1.0-4.8) k/uL Sodium (137-145) mmol/L BUN (9-20) mg/dL Glucose (74-99) mg/dL Plasma Lactic Acid [place] (0.7-2.0) mmol/L Ur Leukocyte Esterase Trace H (Negative) Urine WBC 10 H (0-5) /hpf Urine Mucus Rare H (None) /hpf Thrombosis Risk Factor Assmnt - DVT/VTE Prophylaxis DVT/VTE Prophylaxis: Pharmacologic Prophylaxis ordered - Choose All That Apply Each Factor Represents 1 point: Obesity (BMI >25) Each Risk Factor Represents 2 Points: Age 61-74 years Each Risk Factor Represents 3 Points: History of DVT/PE Thrombosis Risk Factor Assessment Total Risk Factor Score: 6 Thrombosis Risk Factor Assessment Level: High Risk Assessment and Plan (1) Abdominal wall cellulitis Current Visit: No Status: Acute Code(s): L03.311 - CELLULITIS OF ABDOMINAL WALL SNOMED Code(s): 64619389 (2) Cellulitis Current Visit: Yes Status: Acute Code(s): L03.90 - CELLULITIS, UNSPECIFIED SNOMED Code(s): 574999380 (3) Leukocytosis Current Visit: No Status: Acute Code(s): D72.829 - ELEVATED WHITE BLOOD CELL COUNT, UNSPECIFIED SNOMED Code(s): 933663410 (4) Sepsis Current Visit: No Status: Acute Code(s): A41.9 - SEPSIS, UNSPECIFIED ORGANISM SNOMED Code(s): 92050306 (5) Fever Current Visit: No Status: Acute Code(s): R50.9 - FEVER, UNSPECIFIED SNOMED Code(s): 496488148 (6) Essential (primary) hypertension Current Visit: No Status: Acute Code(s): I10 - ESSENTIAL (PRIMARY) HYPERTENSION SNOMED Code(s): 60207673 (7) History of pulmonary embolus (PE) Current Visit: No Status: Acute Code(s): Z86.711 - PERSONAL HISTORY OF PULMONARY EMBOLISM SNOMED Code(s): 083757879 (8) nursing home current use of anticoagulant therapy Current Visit: No Status: Acute Code(s): Z79.01 - GROUP HOME (CURRENT) USE OF ANTICOAGULANTS SNOMED Code(s): 491663493 (9) Morbid (severe) obesity due to excess calories Current Visit: No Status: Acute Code(s): E66.01 - MORBID (SEVERE) OBESITY DUE TO EXCESS CALORIES SNOMED Code(s): 119234344 (10) Colon cancer screening Current Visit: No Status: Acute Code(s): Z12.11 - ENCOUNTER FOR SCREENING FOR MALIGNANT NEOPLASM OF COLON SNOMED Code(s): 435616934 Plan: 1. We'll continue current medication regimen. 2. We will continue to follow infectious disease recommendations for antibiotics. 3. Continue hydration to offset lactic acidosis. 4. We'll await results of blood cultures and COVID testing. 5. We'll reorder lab work for tomorrow morning. 6. Place into dry to bilateral groin folds and under abdominal pannus 7. Encourage activity and room and up out of bed as much as possible. 8. We will follow closely and reevaluate tomorrow morning. Time with Patient: Greater than 30
[2020-08-14] MEDS ORDERED: VANCOMYCIN 2,500 MG in SODIUM CHLORIDE 0.9% 500 ML 500 ML IVPB SCH (13:00)
[2020-08-14] MEDS: ceFAZolin 3 GM in SODIUM CHLORIDE 0.9% 100 ML IVPB SCH (15:36)
--- NOTE | 2020-08-14 23:15 | P.CONS ---
History of Present Illness - Reason for Consult Consult date: 08/14/20 Abdominal wall cellulitis Requesting physician: Gordon Lincoln - Chief Complaint Abdominal wall swelling and redness x few days - History of Present Illness Patient is 65 year male with a past medical history significant for Morbid obesity in this patient Will did have a history of recurrent abdominal wall cellulitis last episode was about 4 months ago teaching outpatient setting with the strongest antibiotic that he can take by his mouth but is not sure abou t the name of those antibiotics patient is now presenting to [facility] ER for abdominal wall swelling and redness that has been getting worse for the last 1-2 days before presentation to the hospital patient denies having history of any trauma to abdominal wall the patient did have evidence of bilateral groin area cutaneous candidiasis with the patient has been using baby powder in the gr oin to keep it dry, has been complaining of abdominal wall swelling and redness which is diffuse along with the pain which is more for the leaking intensity 5-6 out of 10 and no radiation patient currently denies any new problems or any drainage with the symptoms the patient was evaluated by the ER physician on arrival. The patient did have a fever of 101F the patient did have white count of 15,000 patient received a dose of Rocephin in the ER he was started on vancomycin has been admitted to the hospital infectious disease was consulted for further management of antibiotic therapy she Review of Systems Positive point has been mentioned in the HPI rest of the systems are negative Past Medical History Past Medical History: Asthma, GERD/Reflux, Hypertension, Pneumonia, Pulmonary Embolus (PE) Additional Past Medical History / Comment(s): diverticulosis, asthma as a child, cellulitis of abdominal wall History of Any Multi-Drug Resistant Organisms: None Reported Past Surgical History: Appendectomy, Orthopedic Surgery Additional Past Surgical History / Comment(s): rt rotator cuff, rt knee repair of torn meniscus, bilat knee replacement 2019 Past Anesthesia/Blood Transfusion Reactions: No Reported Reaction Past Psychological History: No Psychological Hx Reported Smoking Status: Never smoker Past Alcohol Use History: Occasional Past Drug Use History: None Reported - Past Family History Father Family Medical History: Cancer Additional Family Medical History / Comment(s): bladder cancer with metastasis, diverticulosis Mother Family Medical History: Asthma Brother(s) Additional Family Medical History / Comment(s): scleroderma Medications and Allergies Home Medications Medication Instructions Recorded Confirmed Type Hydrochlorothiazide 12.5 mg PO DAILY 08/21/18 08/14/20 History [hydroCHLOROthiazide] atenoloL [Tenormin] 25 mg PO DAILY 08/21/18 08/14/20 History Multivitamin [Multivitamins Adult 1 tab PO DAILY 06/07/19 08/14/20 History Gummies] Rivaroxaban [Xarelto] 10 mg PO DAILY 06/07/19 08/14/20 History [place]-3 Fatty Acids/Fish Oil [Fish 1 cap PO DAILY 08/14/20 08/14/20 History Oil 1,000 mg Softgel] Allergies Allergy/AdvReac Type Severity Reaction Status Date / Time cat dander Allergy Anaphylaxis Verified 08/14/20 08:42 Physical Exam Vitals: Vital Signs Temp Pulse Pulse Resp BP BP Pulse Ox 08/14/20 07:00 97.7 F 62 18 128/82 96 08/14/20 02:15 98.8 F 83 20 129/70 96 08/14/20 02:07 100.6 F H 81 18 135/60 96 08/14/20 01:00 101.7 F H 95 18 128/61 96 08/13/20 23:07 101.3 F H 100 21 147/74 94 L Intake and Output 08/13/20 08/14/20 08/14/20 22:59 06:59 14:59 Intake Total 100 Balance 100 Intake: Oral 100 Other: Voiding Method Toilet # Voids 1 Weight 181.437 kg GENERAL DESCRIPTION: Elderly male lying in bed, no distress. No tachypnea or accessory muscle of respiration use. HEENT: Shows Pallor , no scleral icterus. Oral mucous membrane is dry. No pharyngeal erythema or thrush NECK: Trachea central, no thyromegaly. LUNGS: Unlabored breathing. Clear to auscultation anteriorly. No wheeze or crackle. HEART: S1, S2, regular rate and rhythm. No loud murmur ABDOMEN: Soft, diffuse abdominal wall swelling along with redness slightly warm to touch no induration or any fluctuation EXTREMITIES: Diffuse swelling of both lower extremity SKIN: No rash, no masses palpable. NEUROLOGICAL: The patient is awake, alert, oriented x3, mood and affect normal. Results CBC & Chem 7: 08/14/20 00:08 09/19/20 00:08 Labs: Abnormal Lab Results - Last 24 Hours (Table) 08/14/20 08/14/20 08/14/20 Range/Units 00:08 00:08 00:08 WBC 15.6 H (3.8-10.6) k/uL Neutrophils # 13.7 H (1.3-7.7) k/uL Lymphocytes # 0.7 L (1.0-4.8) k/uL Sodium 136 L (137-145) mmol/L BUN 22 H (9-20) mg/dL Glucose 156 H (74-99) mg/dL Plasma Lactic Acid Agu[place] 2.4 H* (0.7-2.0) mmol/L Ur Leukocyte Esterase (Negative) Urine WBC (0-5) /hpf Urine Mucus (None) /hpf 08/14/20 Range/Units 00:37 WBC (3.8-10.6) k/uL Neutrophils # (1.3-7.7) k/uL Lymphocytes # (1.0-4.8) k/uL Sodium (137-145) mmol/L BUN (9-20) mg/dL Glucose (74-99) mg/dL Plasma Lactic Acid [place] (0.7-2.0) mmol/L Ur Leukocyte Esterase Trace H (Negative) Urine WBC 10 H (0-5) /hpf Urine Mucus Rare H (None) /hpf Assessment and Plan Assessment: 1- patient with abdominal wall cellulitis in this patient who did have a evidence of groin area cutaneous kinesis likely that his doctor for these recurrent cellulitis with diffuse swelling and redness and rapid progression likely pointing towards streptococcal cellulitis , clinically doubt MRSA or gram-negative infection (1) Abdominal wall cellulitis Current Visit: No Status: Acute Code(s): L03.311 - CELLULITIS OF ABDOMINAL WALL SNOMED Code(s): 87952338 Plan: 1-Discontinue the vancomycin 2- marked the area of the redness 3-we will start the patient on cefazolin 3 g every 8 hours 4-miconazole powder to bilateral groin area We will follow on clinical condition and cultures to further adjust medication if needed Thank you for this consultation will follow this patient with you Time with Patient: Greater than 30
[2020-08-15] MEDS: ceFAZolin 3 GM in SODIUM CHLORIDE 0.9% 100 ML IVPB SCH ×4 (00:01→23:27)
[2020-08-15] MEDS: SODIUM CHLORIDE 0.9% 1,000 ML IV SCH ×3 (00:02→23:28)
[2020-08-15 06:24] LABS: Basophils % (A) 0 %; Eosinophils # (A) 0.5 k/uL (0-0.7); Eosinophils % (A) 5 %; HCT 39.9 % (39.0-53.0); HGB 12.6 gm/dL (13.0-17.5); Lymphocytes # (A) 1.4 k/uL (1.0-4.8); Lymphocytes % (A) 14 %; MCH 29.8 pg (25.0-35.0); MCHC 31.6 g/dL (31.0-37.0); MCV 94.2 fL (80.0-100.0); Mean Platelet Volume 7.2; Monocytes # (A) 0.7 k/uL (0-1.0); Monocytes % (A) 7 %; Neutrophils # (A) 7.2 k/uL (1.3-7.7); Neutrophils % (A) 72 %; Platelet Count 161 k/uL (150-450); RBC 4.23 m/uL (4.30-5.90); RDW 13.7 % (11.5-15.5); WBC 10.1 k/uL (3.8-10.6)
--- NOTE | 2020-08-15 07:18 | P.PN ---
Subjective Progress Note Date: 08/15/20 Principal diagnosis: Fever, cellulitis lower abdomen. -year-old male patient well known to the practice. Has history of recurrent abdominal wall cellulitis with the last episode approximately 4 months ago and was treated on an outpatient basis. Presented to the emergency room in ambulatory status is his noticed some redness on the anterior side of his abdomen and bilateral groin folds. Denies any pain, cough or congestion, chest pain pressure, nausea vomiting or diarrhea. He did mention he began running a fever prior coming in the emergency room. His past medical history of asthma, GERD reflux, hypertension, pneumonia, pulmonary embolus. He is also noted for history diverticulosis, cellulitis of abdominal wall, appendectomy, right rotator cuff repair, right knee repair of torn meniscus, bilateral knee replacement 2018. 08/15/20 65-year-old male patient asleep in bed. He was easily arousable to verbal stimuli, and is alert and oriented 3. Currently denies any pain, shortness of breath, chest pain or pressure, nausea vomiting. Patient states he is up moving around room without issue and has had 2 bowel movements since his admission. This morning vital signs he is afebrile 98.5 or malaise, pulse rate of 71, respiratory rate of 18, oxygen saturation is 93% on room air. His blood pressure is noted be 110/40. Available lab work this morning is CBC with white blood cell count normalized to 10.1, hemoglobin of 12.6, hematocrit 39.9, platelet count 161. Objective - Vital Signs Vital signs: Vital Signs Temp 98.5 F 08/15/20 04:06 Pulse 71 08/15/20 04:06 Resp 18 08/15/20 04:06 BP 110/40 08/15/20 04:06 Pulse Ox 93 L 08/15/20 04:06 Intake & Output 08/14/20 08/15/20 08/15/20 18:59 06:59 18:59 Intake Total 540 Balance 540 Intake: Oral 540 Other: Voiding Method Toilet Toilet # Voids 3 1 - Exam GENERAL: Morbidly obese, Well-appearing, well-nourished and in no acute distress. HEAD: Atraumatic, normocephalic. EYES: Pupils equal round and reactive to light, extraocular movements intact, sclera anicteric, conjunctiva are normal. ENT:nares patent, oropharynx clear without exudates. Moist mucous membranes. NECK: Normal range of motion, supple without lymphadenopathy or JVD, no t hyromegaly LUNGS: Breath sounds clear to auscultation bilaterally and equal. No wheezes rales or rhonchi. HEART: Regular rate and rhythm without murmurs, rubs or gallops.S1S2 Normal ABDOMEN: Soft, nontender, normoactive bowel sounds. No guarding, no rebound. No masses appreciated. EXTREMITIES: Normal range of motion, no pitting or edema. No clubbing or cyanosis. NEUROLOGICAL: Cranial nerves II through XII grossly intact. Normal speech, normal gait. PSYCH: Normal mood, normal affect. SKIN: Warm, Dry, normal turgor or lesions noted. Areas of excoriation and bilateral groin folds and under pannus are improving. Sheets of interdry in place - Labs CBC & Chem 7: 08/15/20 05:29 08/14/20 00:08 Labs: Abnormal Lab Results - Last 24 Hours (Table) 08/15/20 Range/Units 05:29 RBC 4.23 L (4.30-5.90) m/uL Hgb 12.6 L (13.0-17.5) gm/dL Microbiology - Last 24 Hours (Table) 08/14/20 00:08 Blood Culture - Preliminary Blood No Growth after 24 hours Assessment and Plan (1) Abdominal wall cellulitis Current Visit: No Status: Acute Code(s): L03.311 - CELLULITIS OF ABDOMINAL WALL SNOMED Code(s): 47162348 (2) Cellulitis Current Visit: Yes Status: Acute Code(s): L03.90 - CELLULITIS, UNSPECIFIED SNOMED Code(s): 383375269 (3) Leukocytosis Current Visit: No Status: Acute Code(s): D72.829 - ELEVATED WHITE BLOOD CELL COUNT, UNSPECIFIED SNOMED Code(s): 596961960 (4) Sepsis Current Visit: No Status: Acute Code(s): A41.9 - SEPSIS, UNSPECIFIED ORGANISM SNOMED Code(s): 32738084 (5) Fever Current Visit: No Status: Acute Code(s): R50.9 - FEVER, UNSPECIFIED SNOMED Code(s): 062586477 (6) Essential (primary) hypertension Current Visit: No Status: Acute Code(s): I10 - ESSENTIAL (PRIMARY) HYPERTENSION SNOMED Code(s): 23529122 (7) History of pulmonary embolus (PE) Current Visit: No Status: Acute Code(s): Z86.711 - PERSONAL HISTORY OF PULMONARY EMBOLISM SNOMED Code(s): 346147942 (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 We'll continue current medication regimen. 2. We will continue to follow infectious disease recommendations for antibiotics. 3. We'll await results of blood cultures and COVID testing. 4. We'll reorder lab work for tomorrow morning. 5. Continue interdry to bilateral groin folds and under abdominal pannus 6. Encourage activity and room and up out of bed as much as possible. 7. Omeprazole for PPI coverage 8. We'll follow closely and reevaluate again tomorrow Time with Patient: Greater than 30
[2020-08-15] MEDS: MULTIVITAMINS, THERA 1 EACH TAB PO SCH (07:32)
[2020-08-15] MEDS: hydroCHLOROthiazide 12.5 MG CAP PO SCH (07:32)
[2020-08-15] MEDS: PANTOPRAZOLE 40 MG TABLET PO SCH (07:32)
[2020-08-15] MEDS: atenoloL 25 MG TAB PO SCH (07:32)
[2020-08-15] MEDS: RIVAROXABAN 10 MG TAB PO SCH (07:33)
[2020-08-15 10:07] LABS: African American GFR (CKD) 102.1 (60.0-200.0); Albumin 3.1 g/dL (3.80-4.90); Albumin/Globulin Ratio 1.63 (1.60-3.17); Anion Gap 5.8 mmol/L (4.00-12.00); BUN/Creat Ratio 17.78 Ratio (12.00-20.00); Calcium 7.9 mg/dL (8.7-10.3); Carbon Dioxide 27.2 mmol/L (21.6-31.8); Globulin 1.9 g/dL (1.6-3.3); Non-African American GFR(CKD) 88.1 (60.0-200.0); Potassium 3.7 mmol/L (3.5-5.5); Total Bilirubin 0.9 mg/dL (0.2-1.2)
--- NOTE | 2020-08-15 16:40 | PN ---
PROGRESS NOTE DATE OF SERVICE: 08/15/2020 REASON FOR FOLLOWUP: Abdominal wall cellulitis. INTERVAL HISTORY: Patient is currently afebrile. Patient is breathing comfortably. The abdominal wall pain and discomfort has improved. Currently no open wound or drainage. Denies any chest pain or shortness of breath or cough. No diarrhea. PHYSICAL EXAMINATION: Blood pressure 143/74 with a pulse of 67, temperature 98.5. He is 95% on room air. General description: The patient is an elderly male lying in bed in no distress. Respiratory system: Unlabored breathing. Clear to auscultation anteriorly. Heart S1, S2. Regular rate and rhythm. ABDOMEN: Soft. Abdominal wall redness has decreased. LABS: Hemoglobin is 10.6, white count 10.1, BUN of 16, creatinine 0.9. DIAGNOSTIC IMPRESSION AND PLAN: 1. Patient with extensive abdominal wall cellulitis seemed to have shown clinical improvement. On cefazolin to continue for another 24 hours. The patient continues to improve, finish therapy with oral Keflex and monitor clinical course closely. 2. Groin area cutaneous candidiasis. Continue with nystatin powder to prevent recurrent episodes. MMODL / IJN: [id number] /
[2020-08-16 03:58] VITALS: TEMP 98
[2020-08-16 05:00] LABS: Basophils % (A) 0 %; Eosinophils # (A) 0.6 k/uL (0-0.7); Eosinophils % (A) 6 %; HCT 42.7 % (39.0-53.0); HGB 13.7 gm/dL (13.0-17.5); Lymphocytes # (A) 1.2 k/uL (1.0-4.8); Lymphocytes % (A) 13 %; MCH 30.2 pg (25.0-35.0); MCHC 32.2 g/dL (31.0-37.0); MCV 93.9 fL (80.0-100.0); Mean Platelet Volume 7.1; Monocytes # (A) 0.6 k/uL (0-1.0); Monocytes % (A) 6 %; Neutrophils # (A) 6.7 k/uL (1.3-7.7); Neutrophils % (A) 72 %; Platelet Count 167 k/uL (150-450); RBC 4.55 m/uL (4.30-5.90); RDW 13.9 % (11.5-15.5); WBC 9.3 k/uL (3.8-10.6)
[2020-08-16 07:31] VITALS: BP 151/77; PULSE 59; RESP 20
[2020-08-16] MEDS: PANTOPRAZOLE 40 MG TABLET PO SCH (08:05)
[2020-08-16] MEDS: hydroCHLOROthiazide 12.5 MG CAP PO SCH (08:05)
[2020-08-16] MEDS: MULTIVITAMINS, THERA 1 EACH TAB PO SCH (08:05)
[2020-08-16] MEDS: atenoloL 25 MG TAB PO SCH (08:05)
[2020-08-16] MEDS: RIVAROXABAN 10 MG TAB PO SCH (08:05)
[2020-08-16] MEDS: ceFAZolin 3 GM in SODIUM CHLORIDE 0.9% 100 ML IVPB SCH (08:07)
[2020-08-16] MEDS: SODIUM CHLORIDE 0.9% 1,000 ML IV SCH (08:08)
[2020-08-16 10:11] LABS: African American GFR (CKD) 89.9 (60.0-200.0); Albumin 3.4 g/dL (3.80-4.90); Albumin/Globulin Ratio 1.62 (1.60-3.17); Calcium 8.2 mg/dL (8.7-10.3); Globulin 2.1 g/dL (1.6-3.3); Non-African American GFR(CKD) 77.5 (60.0-200.0); Potassium 4.2 mmol/L (3.5-5.5); Total Bilirubin 0.7 mg/dL (0.2-1.2); Total Protein 5.5 g/dL (6.2-8.2)
--- NOTE | 2020-08-16 13:42 | P.DS ---
Providers Date of admission: 08/14/20 00:09 Expected date of discharge: 08/16/20 Attending physician: Gordon Lincoln Consults: 08/14/20 01:22 Consult Physician Stat Consulting Provider: Kristopher De La Torre Consult Reason/Comments: anterior abdominal wall cellulitis Do you want consulting provider notified?: Yes Primary care physician: Gordon Lincoln Hospital Course: Final Diagnoses: Abdominal wall cellulitis, recurrent possible streptococcal Leukocytosis secondary to the above, resolved Asymptomatic bradycardia, Tenormin placed on hold, event monitor ordered. Further workup outpatient. Possible obstructive sleep apnea, patient and he to have outpatient sleep test arranged in clinic with PCP Morbid obesity, BMI 54.2 Chronic intermittent asthma Gastroesophageal reflux disease Hypertension History of PE Hospital course: This is a 65-year-old gentleman admitted with recurrent abdominal wall cellulitis. Evaluated by infectious disease. Maintained on IV antibiotics with significant clinical improvement. Patient also having asymptomatic bradycardia. Tenormin placed on hold, event monitor ordered at [place]. Recommending weight loss, sleep study and follow-up with cardiology. Cleared by infectious disease for discharge, with Keflex 10 days recommended.Patient is being discharged home today in a stable condition with guarded prognosis. The impression and plan of care has been dictated as directed. : I performed a history and examination of this patient, discussed the same with the dictator. I agree with the dictator's note ,documented as a scribe. Any additional findings or plans will be noted. Patient Condition at Discharge: Stable Plan - Discharge Summary Discharge Rx Participant: No New Discharge Prescriptions: New Cephalexin [Keflex] 500 mg PO Q6HR 10 Days #40 cap Pantoprazole [Protonix] 40 mg PO AC-BRKFST #14 tablet.dr Continue Hydrochlorothiazide [hydroCHLOROthiazide] 12.5 mg PO DAILY Rivaroxaban [Xarelto] 10 mg PO DAILY Multivitamin [Multivitamins Adult Gummies] 1 tab PO DAILY [place]-3 Fatty Acids/Fish Oil [Fish Oil 1,000 mg Softgel] 1 cap PO DAILY Discontinued atenoloL [Tenormin] 25 mg PO DAILY Discharge Medication List Hydrochlorothiazide [hydroCHLOROthiazide] 12.5 mg PO DAILY 08/21/18 [History] Multivitamin [Multivitamins Adult Gummies] 1 tab PO DAILY 06/07/19 [History] Rivaroxaban [Xarelto] 10 mg PO DAILY 06/07/19 [History] [place]-3 Fatty Acids/Fish Oil [Fish Oil 1,000 mg Softgel] 1 cap PO DAILY 08/14/20 [History] Cephalexin [Keflex] 500 mg PO Q6HR 10 Days #40 cap 08/16/20 [Rx] Pantoprazole [Protonix] 40 mg PO AC-BRKFST #14 tablet. 08/16/20 [Rx] Follow up Appointment(s)/Referral(s): Harris Roca DO [STAFF PHYSICIAN] - 1 Week (Please call and make an appointment) Gordon Lincoln MD [Primary Care Provider] - 08/30/20 9:15 am Activity/Diet/Wound Care/Special Instructions: Miconazole powder to bilateral groin as previously ordered. Event monitor at discharge for asymptomatic bradycardia. Atenolol placed on hold. Patient will need a sleep study outpatient to be arranged as per PCP in clinic. Weight loss discussed
--- NOTE | 2020-08-16 14:40 | PN ---
PROGRESS NOTE DATE OF SERVICE: 08/16/2020 REASON FOR FOLLOWUP: Abdominal wall cellulitis and groin area cutaneous candidiasis. INTERVAL HISTORY: The patient is currently afebrile. The patient is breathing comfortably. Denies having any chest pain. No shortness of breath, no nausea, no vomiting. No abdominal pain. Overall swelling has improved. There is no diarrhea. PHYSICAL EXAMINATION: Blood pressure 151/77, pulse of 69, temperature 98, he is 96% on room air. General description is an elderly male up in the bed in no distress. RESPIRATORY SYSTEM: Unlabored breathing, clear to auscultation anteriorly. HEART: S1, S2. Regular rate and rhythm. ABDOMEN: Soft. The abdominal wall redness has decreased. LABS: Hemoglobin is 13.2, white count of 9.3, BUN of 15, creatinine 1.0. Blood culture negative. DIAGNOSTIC IMPRESSION AND PLAN: 1. Patient with abdominal wall cellulitis. This patient has shown clinical response to cefazolin. Plan to finish therapy with oral Keflex 500 mg q.6 hours for 10 days. 2. Bilateral groin area cutaneous candidiasis. Local care with nystatin powder twice a day for about a week. Questions and concern have been onset. Patient is clear about his condition. Continue supportive care. MMODL / IJN: [id number] /
== END 2020-08-16 14:37 | disposition home or self-care (01) ==
LOC: EC 23:00 → 4SSUR 08-14 00:09
PROVIDERS: ADMIT Family Medicine; ATTEND Family Medicine
DX: A41.9 Sepsis, unspecified organism (principal); L03.311 Cellulitis of abdominal wall; E87.2 Acidosis; B37.2 Candidiasis of skin and nail; K21.9 Gastro-esophageal reflux disease without esophagitis; R00.1 Bradycardia, unspecified; I10 Essential (primary) hypertension; K57.90 Diverticulosis of intestine, part unspecified, without perforation or abscess without bleeding; E66.01 Morbid (severe) obesity due to excess calories; Z68.43 Body mass index [BMI] 50.0-59.9, adult; J45.20 Mild intermittent asthma, uncomplicated; Z12.11 Encounter for screening for malignant neoplasm of colon; Z20.828 Contact with and (suspected) exposure to other viral communicable diseases; Z79.899 Other long term (current) drug therapy; Z79.01 Long term (current) use of anticoagulants; Z91.048 Other nonmedicinal substance allergy status; Z86.711 Personal history of pulmonary embolism; Z87.01 Personal history of pneumonia (recurrent); Z87.898 Personal history of other specified conditions; Z90.49 Acquired absence of other specified parts of digestive tract; Z96.653 Presence of artificial knee joint, bilateral; Z80.52 Family history of malignant neoplasm of bladder; Z82.5 Family history of asthma and other chronic lower respiratory diseases; Z84.2 Family history of other diseases of the genitourinary system; Z83.79 Family history of other diseases of the digestive system; Z84.0 Family history of diseases of the skin and subcutaneous tissue
CPT/HCPCS: 96376; 96361 ×2; 96366 ×3; 96365; 96367; 99285; 36415; 94760; 93005 ×2; 93270; 80053 ×3; 83605; 85025 ×3; 85610; 85730; 81001; 87040; G0378 ×3; U0003; J3370; J0690 ×3; J0696

== ENCOUNTER 2022-06-16 17:11 | Emergency (ER) | payer BC, MEDICARE ==
[2022-06-16 17:16] VITALS: TEMP 98
[2022-06-16] MEDS ORDERED: HYDROmorphone 0.5 MG/0.5 ML SYRINGE IVP STA (18:20)
[2022-06-16] MEDS ORDERED: SODIUM CHLORIDE 0.9% 2,000 ML IV STA (18:20)
[2022-06-16] MEDS ORDERED: ONDANSETRON 4 MG/2 ML VIAL IVP STA (18:20)
[2022-06-16 19:03] LABS: Basophils # (A) 0.1 k/uL (0-0.2); Basophils % (A) 1 %; Eosinophils # (A) 0.5 k/uL (0-0.7); Eosinophils % (A) 4 %; HCT 51.1 % (39.0-53.0); HGB 15.7 gm/dL (13.0-17.5); Lymphocytes # (A) 1.7 k/uL (1.0-4.8); Lymphocytes % (A) 14 %; MCH 29.9 pg (25.0-35.0); MCHC 30.7 g/dL (31.0-37.0); MCV 97.6 fL (80.0-100.0); Mean Platelet Volume 7.5; Monocytes # (A) 0.7 k/uL (0-1.0); Monocytes % (A) 6 %; Neutrophils # (A) 9.2 k/uL (1.3-7.7); Neutrophils % (A) 74 %; Platelet Count 198 k/uL (150-450); RBC 5.23 m/uL (4.30-5.90); RDW 13.9 % (11.5-15.5); WBC 12.4 k/uL (3.8-10.6)
[2022-06-16 19:08] LABS: Appearance,Urine Clear (Clear); Bilirubin,Urine Negative (Negative); Blood,Urine Negative (Negative); Color,Urine Yellow; Glucose,Urine (UA) Negative (Negative); Ketones,Urine Negative (Negative); Leukocyte Esterase,Urine Negative (Negative); Nitrite,Urine Negative (Negative); PH, Urine 5.5 (5.0-8.0); Protein,Urine Negative (Negative); Specific Gravity,Urine 1.026 (1.001-1.035); Urobilinogen,Urine <2.0 mg/dL (<2.0)
--- NOTE | 2022-06-16 19:33 | US ---
EXAMINATION TYPE: US abdomen limited DATE OF EXAM: 06/16/2022 COMPARISON: NONE CLINICAL HISTORY: RUQ pain. epigastric/RUQ pain today. nausea EXAM MEASUREMENTS: Liver Length: 20.5 cm Gallbladder Wall: 0.3 cm Right Kidney: 11.6 x 5.5 x 4.5 cm *technical limitations due to patient's body habitus (420 pounds) and overlying bowel content Pancreas: Obscured by bowel gas Liver: limited evaluation, enlarged, attenuating, unable to penetrate Gallbladder: no evidence of stones Evidence for sonographic Dunlap's sign: no CBD: Obscured by overlying bowel gas Right Kidney: no evidence of hydronephrosis IMPRESSION: No gallstones. Common bile duct not seen but there is no dilation of the intrahepatic bile ducts. No ascites.
[2022-06-16 19:53] LABS: ALT 91 U/L (4-49); AST 155 U/L (17-59); African American GFR (CKD) >90 (>60 ml/min/1.73 sqM); Albumin 3.6 g/dL (3.5-5.0); Alkaline Phosphatase 100 U/L (38-126); Anion Gap 5 mmol/L; Blood Urea Nitrogen 21 mg/dL (9-20); Calcium 8.7 mg/dL (8.4-10.2); Carbon Dioxide 29 mmol/L (22-30); Chloride 104 mmol/L (98-107); Glucose 164 mg/dL (74-99); Lipase 126 U/L (23-300); Non-African American GFR(CKD) 83 (>60 ml/min/1.73 sqM); Potassium 4.1 mmol/L (3.5-5.1); Sodium 138 mmol/L (137-145); Total Bilirubin 1.1 mg/dL (0.2-1.3); Total Protein 6.9 g/dL (6.3-8.2)
--- NOTE | 2022-06-16 21:22 | CT ---
EXAMINATION TYPE: CT abdomen pelvis w con DATE OF EXAM: 06/16/2022 COMPARISON: 06/07/2019 HISTORY: Rt sided abnomial pain CT DLP: 4010.4 mGycm Automated exposure control for dose reduction was used. CONTRAST: Performed with IV Contrast, patient injected with 100 mL of Isovue 300. Images obtained from the diaphragm to the floor of the pelvis with the IV contrast. Lung bases are clear. There is no pleural effusion. Heart size is normal. No pericardial effusion. There is fatty infiltration of the liver. Gallbladder is enlarged and measures 4.8 cm. The bile ducts are not dilated. Spleen is intact. No pancreatic mass. There is no adrenal mass. Kidneys show satisfactory contrast opacification. There is no hydronephrosi s. Ureters are not dilated. No retroperitoneal adenopathy. There is a 2 cm cyst posterior left kidney . The bladder distends smoothly. No inguinal hernia. No free fluid in the pelvis. No pelvic mass. There are multiple large bowel diverticula. No diverticulitis. Appendix not seen. No sign thickened a ppendix. There is no mesenteric edema. No ascites or free air. There is no bowel obstruction. The lumbar vertebrae have normal alignment. No compression fracture. Bony pelvis is intact. The hip j oints are intact. IMPRESSION: Colonic diverticulosis without diverticulitis. Appendix not seen. Mildly dilated gallbladder could re late to cholecystitis or gallbladder dysfunction. Gallbladder increased compared to old exam. Fatty i nfiltration of the liver.
--- NOTE | 2022-06-16 21:32 | ED ---
Abdominal Pain HPI - General Chief Complaint: Abdominal Pain Stated Complaint: upper abd pain Time Seen by Provider: 06/16/22 18:10 Source: patient Mode of arrival: ambulatory Limitations: no limitations - History of Present Illness Initial Comments: Patient is 66-year-old male with a past medical history significant for GERD, diverticulosis, hypertension, and pulmonary embolism who presents to the emergency department with a chief complaint of right-sided abdominal pain. Patient states the pain started this morning has significantly worsened. Mia ent states any worsening the pain. Describes the pain as a constant aching in the right upper abdomen and sometimes the right lower abdomen. Reports nausea without vomiting. Denies fever, chills, side pain, diarrhea, burning with urination, and blood in urine. Denies history of abdominal surgery. Reports last bowel movement was today which was normal shape and consistency, nonbloody. - Related Data Home Medications Medication Instructions Recorded Confirmed hydroCHLOROthiazide 12.5 mg PO DAILY 08/21/18 08/14/20 Multivitamin [Multivitamins Adult 1 tab PO DAILY 06/07/19 08/14/20 Gummies] Rivaroxaban [Xarelto] 10 mg PO DAILY 06/07/19 08/14/20 [place]-3 Fatty Acids/Fish Oil [Fish 1 cap PO DAILY 08/14/20 08/14/20 Oil 1,000 mg Softgel] Previous Rx's Medication Instructions Recorded Pantoprazole [Protonix] 40 mg PO AC-BRKFST #14 tablet. 08/16/20 cephALEXin [Keflex] 500 mg PO Q6HR 10 Days #40 cap 08/16/20 Allergies Allergy/AdvReac Type Severity Reaction Status Date / Time cat dander Allergy Anaphylaxis Verified 06/16/22 17:16 Review of Systems ROS Statement: Those systems with pertinent positive or pertinent negative responses have been documented in the HPI. ROS Other: All systems not noted in ROS Statement are negative. Past Medical History Past Medical History: Asthma, GERD/Reflux, Hypertension, Pneumonia, Pulmonary Embolus (PE) Additional Past Medical History / Comment(s): diverticulosis, asthma as a child, cellulitis of abdominal wall History of Any Multi-Drug Resistant Organisms: None Reported Past Surgical History: Appendectomy, Orthopedic Surgery Additional Past Surgical History / Comment(s): rt rotator cuff, rt knee repair of torn meniscus, bilat knee replacement 2019 Past Anesthesia/Blood Transfusion Reactions: No Reported Reaction Past Psychological History: No Psychological Hx Reported Smoking Status: Never smoker Past Alcohol Use History: Occasional Past Drug Use History: None Reported - Past Family History Father Family Medical History: Cancer Additional Family Medical History / Comment(s): bladder cancer with metastasis, diverticulosis Mother Family Medical History: Asthma Brother(s) Additional Family Medical History / Comment(s): scleroderma General Exam Limitations: no limitations General appearance: alert, in no apparent distress Head exam: Present: atraumatic, normocephalic, normal inspection Respiratory exam: Present: normal lung sounds bilaterally. Absent: respiratory distress, wheezes, rales, rhonchi, stridor Cardiovascular Exam: Present: regular rate, normal rhythm, normal heart sounds. Absent: systolic murmur, diastolic murmur, rubs, gallop, clicks GI/Abdominal exam: Present: soft, tenderness (moderate in RUQ and RLQ), normal bowel sounds. Absent: distended, guarding, rebound, rigid Back exam: Present: normal inspection. Absent: CVA tenderness (R), CVA tenderness (L), paraspinal tenderness, vertebral tenderness Neurological exam: Present: alert, oriented X3, CN II-XII intact Psychiatric exam: Present: normal affect, normal mood Skin exam: Present: warm, dry, intact, normal color. Absent: rash Course Vital Signs 06/16/22 06/16/22 17:14 21:55 Temperature 98 F Pulse Rate 66 78 Respiratory 20 16 Rate Blood Pressure 203/83 141/70 O2 Sat by Pulse 98 97 Oximetry Medical Decision Making - Medical Decision Making This is a 66-year-old male who presents with right-sided abdominal pain and nausea. Thorough history and examination were performed. Patient is well- appearing. He is in no apparent distress. Afebrile. The abdomen is soft. There is moderate tenderness in the right upper quadrant. Negative Dunlap sign. There is mild tenderness in the right lower quadrant. No guarding. With patient's presentation and physical exam are is concern for gallbladder pathology. I will obtain laboratory studies and abdominal ultrasound. Laboratory studies significant for mild leukocytosis at 12.4. AST is elevated at 155, ALT elevated at 91. Alk phos is within normal limits. Urinalysis is not indicative of infection or blood. Gallbladder ultrasound was limited due to body habitus. Shows a mildly thickened gallbladder at 0.30 cm. No gallstones. Common bile duct was not seen but there is no dilation of intrahepatic bile ducts. No ascites. With patient's tenderness in the right lower quadrant acute abdominal process could not fully ruled out by ultrasound. CT of the abdomen and pelvis with contrast was obtained which again showed a mildly dilated gallbladder and fatty infiltration of the liver. Patient's pain and nausea completely subsided after one dose of Dilaudid and Zofran. Results discussed with patient. Given lack of fever, minimal degree of abnormality of lab findings, and improvement of symptoms, this does not appear to be an acute cholecystitis. Patient will be discharged with strict return parameters and referral to Dr. Dominguez. Patient may need a HIDA scan for gallbladder dysfunction. He verbalizes understanding and is agreeable to this plan. Dr. Rouse is my attending. - Lab Data Result diagrams: 06/16/22 18:53 06/16/22 19:18 Lab Results 06/16/22 06/16/22 06/16/22 Range/Units 18:53 18:53 19:18 WBC 12.4 H (3.8-10.6) k/uL RBC 5.23 (4.30-5.90) m/uL Hgb 15.7 (13.0-17.5) gm/dL Hct 51.1 (39.0-53.0) % MCV 97.6 (80.0-100.0) fL MCH 29.9 (25.0-35.0) pg MCHC 30.7 L (31.0-37.0) g/dL RDW 13.9 (11.5-15.5) % Plt Count 198 (150-450) k/uL MPV 7.5 Neutrophils % 74 % Lymphocytes % 14 % Monocytes % 6 % Eosinophils % 4 % Basophils % 1 % Neutrophils # 9.2 H (1.3-7.7) k/uL Lymphocytes # 1.7 (1.0-4.8) k/uL Monocytes # 0.7 (0-1.0) k/uL Eosinophils # 0.5 (0-0.7) k/uL Basophils # 0.1 (0-0.2) k/uL Sodium 138 (137-145) mmol/L Potassium 4.1 (3.5-5.1) mmol/L Chloride 104 (98-107) mmol/L Carbon Dioxide 29 (22-30) mmol/L Anion Gap 5 mmol/L BUN 21 H (9-20) mg/dL Creatinine 0.94 (0.66-1.25) mg/dL Est GFR (CKD-EPI)AfAm >90 (>60 ml/min/1.73 sqM) Est GFR (CKD-EPI)NonAf 83 (>60 ml/min/1.73 sqM) Glucose 164 H (74-99) mg/dL Calcium 8.7 (8.4-10.2) mg/dL Total Bilirubin 1.1 (0.2-1.3) mg/dL AST 155 H (17-59) U/L ALT 91 H (4-49) U/L Alkaline Phosphatase 100 (38-126) U/L Total Protein 6.9 (6.3-8.2) g/dL Albumin 3.6 (3.5-5.0) g/dL Lipase 126 (23-300) U/L Urine Color Yellow Urine Appearance Clear (Clear) Urine pH 5.5 (5.0-8.0) Ur Specific [place] 1.026 (1.001-1.035) Urine Protein Negative (Negative) Urine Glucose (UA) Negative (Negative) Urine Ketones Negative (Negative) Urine Blood Negative (Negative) Urine Nitrite Negative (Negative) Urine Bilirubin Negative (Negative) Urine Urobilinogen <2.0 (<2.0) mg/dL Ur Leukocyte Esterase Negative (Negative) Disposition Clinical Impression: Right sided abdominal pain, Nausea Disposition: HOME SELF-CARE Condition: Good Instructions (If sedation given, give patient instructions): Acute Nausea and Vomiting (ED), Abdominal Pain (ED) Additional Instructions: Please follow up with primary care provider in one to 2 days. Please schedule an appointment with general surgeon if symptoms continue. Return to the emergency department if you experience new, concerning, or worsening symptoms. Is patient prescribed a controlled substance at d/c from ED?: No Referrals: Gordon Lincoln MD [Primary Care Provider] - 1-2 days Abiodun Graham MD [STAFF PHYSICIAN] - 1-2 days Time of Disposition: 21:34
[2022-06-16 22:03] VITALS: BP 141/70; PULSE 78; RESP 16
== END 2022-06-16 22:03 | disposition home or self-care (01) ==
LOC: EC 17:11
DX: R10.9 Unspecified abdominal pain (principal); R11.0 Nausea; D72.829 Elevated white blood cell count, unspecified; R74.01 Elevation of levels of liver transaminase levels; J45.909 Unspecified asthma, uncomplicated; I10 Essential (primary) hypertension; Z79.899 Other long term (current) drug therapy; Z90.49 Acquired absence of other specified parts of digestive tract; Z87.19 Personal history of other diseases of the digestive system
CPT/HCPCS: 99284; 96374; 96375; 96361; 36415; 80053; 83690; 85025; 81003; 76705; 74177; J2405; J1170; Q9967